=== PATIENT | male | born 1935 | race Caucasian/White ===

== ENCOUNTER 2018-12-13 10:02 | Observation (INO) | payer MEDICARE, OTHER ==
[2018-12-13 10:18] VITALS: BMI 29.7
[2018-12-13 11:09] LABS: BASO % 0.7 % (0.0-2.0); EOS # 0.1 K/uL (0.0-0.7); EOS % 2.2 % (0.0-4.0); LYMPH % 19.1 % (20.0-40.0); MEAN CORPUSCULAR HEMOGLOBIN 32.6 pg (27.0-31.0); MEAN CORPUSCULAR HGB CONC 33.7 g/dL (33.0-37.0); MEAN PLATELET VOLUME 8.6 fL (7.2-11.7); MONO # 0.4 K/uL (0.0-0.8); MONO % 6.5 % (0.0-10.0); NEUT # 3.9 K/uL (1.8-7.0); NEUT % 71.5 % (50.0-75.0); NRBC % 0.1 % (0.0-2.0); RBC 2.55 Mil/uL (4.40-5.90); RED CELL DISTRIBUTION WIDTH 14.3 % (11.5-14.5); WHITE BLOOD COUNT 5.4 K/uL (4.8-10.8)
[2018-12-13 11:12] LABS: HEMOGLOBIN 8.3 g/dL (12.0-18.0); MEAN CELL VOLUME 96.6 fL (80.0-94.0)
--- NOTE | 2018-12-13 11:20 | C.PDOC ---
History Of Present Illness 83 y/o male,w/PMhx of COPD, HTN, CAD w/stents, CABG, and "enlarged bladder" presents to the ER complaining of shortness which has been present for the past 1 week gradually worsening over the past several days. Patient states that he Time Seen by Provider: 12/13/18 10:08 Chief Complaint (Nursing): Shortness Of Breath Past Medical History Vital Signs: Last Vital Signs Temp 97.4 F L 12/13/18 10:11 Pulse 86 12/13/18 10:11 Resp 24 12/13/18 10:41 BP 113/52 L 12/13/18 10:11 Pulse Ox 99 12/13/18 10:41 - Medical History PMH: Asthma, Bronchitis, CHF, COPD, HTN, Hypothyroidism Surgical History: CABG Family History: States: No Known Family Hx - Social History Hx Alcohol Use: No Hx Substance Use: No - Immunization History Hx Tetanus Toxoid Vaccination: No Hx Influenza Vaccination: No Hx Pneumococcal Vaccination: No Review Of Systems Constitutional: Negative for: Fever, Chills Cardiovascular: Negative for: Chest Pain, Palpitations Respiratory: Positive for: Shortness of Breath Gastrointestinal: Negative for: Nausea, Vomiting, Abdominal Pain, Diarrhea Genitourinary: Negative for: Dysuria, Hematuria Skin: Negative for: Rash Physical Exam - Physical Exam Appears: Well, Non-toxic, In Acute Distress (IN MILD IDSTRES), Other (SPEAKING IN FULL SENTENCES) Skin: Warm, Dry Eye(s): bilateral: Normal Inspection Oral Mucosa: Moist Cardiovascular: Rhythm Regular Respiratory: No Accessory Muscle Use, Rales (faint rales at bases B/L ), No Rhonchi, No Wheezing Gastrointestinal/Abdominal: Normal Exam, Bowel Sounds, Soft, No Tenderness Extremity: Normal ROM, No Pedal Edema Pulses: Left Dorsalis Pedis: Normal, Right Dorsalis Pedis: Normal Neurological/Psych: Oriented x3 ED Course And Treatment - Laboratory Results Result Diagrams: 12/13/18 10:59 12/13/18 10:59 ECG: Interpreted By Me, Viewed By Me ECG Rhythm: V Paced Interpretation Of ECG: V Paced with left axis deviation, PVC's, and no acute ST changes Rate From EC (bpm) O2 Sat by Pulse Oximetry: 99 (RA) Pulse Ox Interpretation: Normal - Other Rad CXR X-Ray: Viewed By Me, Read By Radiologist Interpretation: Accession No. : [id number]. Patient Name / ID : SAMANTHA ALBERTS / [id number]. Exam Date : 12/13/2018 10:54:18 ( Approved ). Study Comment : Sex / Age : M / 83Y. Creator : Ivone Thurston MD. Dictator : Ivone Thurston MD. Clinical Cytogeneticist Scientist : Shingle Weaver : Ivone Thurston MD. Approver2 : Report Date : 12/13/2018 11:14:23. My Comment : . HISTORY: SOB. COMPARISON: None available. TECHNIQUE: Chest, one view. FINDINGS: LUNGS: Moderate to severe interstitial prominence consistent with edema and/or infection. Small bilateral pleural effusions and associated consolidations. Biapical pleural thickening. No definite pneumothorax. CARDIOVASCULAR: Dual lead left-sided pacemaker. Median sternotomy wires. Cardiomegaly. OSSEOUS STRUCTURES: Osseous demineralization. Degenerative changes. VISUALIZED UPPER ABDOMEN: Unremarkable. OTHER FINDINGS: None. IMPRESSION: Moderate to severe interstitial prominence consistent with edema and/or infection. Small bilateral pleural effusions and associated consolidations. Biapical pleural thickening. Dual lead left-sided pacemaker. Median sternotomy wires. Cardiomegaly. Progress Note: Blood work, EKG, CXR, VQ scan ordered and reviewed. Disposition - Disposition Disposition Time: 13:30 Condition: STABLE Forms: [facility] (Turkmen) - Clinical Impression Clinical Impression: Dyspnea - Scribe Statement The provider has reviewed the documentation as recorded by the Jajaibe Tracy Sellers Provider Attestation: All medical record entries made by the Scribe were at my direction and personally dictated by me. I have reviewed the chart and agree that the record accurately reflects my personal performance of the history, physical exam, medical decision making, and the department course for this patient. I have also personally directed, reviewed, and agree with the discharge instructions and disposition. Physician Patient Turnover Patient Signed Over To: Zuly Torres Handoff Comments: PENDING VQ SCAN
[2018-12-13 11:23] LABS: ALB/GLOB RATIO 1.4 (1.0-2.1); ALBUMIN 3.8 g/dL (3.5-5.0); ALT/SGPT 12 U/L (21-72); AST/SGOT 19 U/L (17-59); BLOOD UREA NITROGEN 20 mg/dL (9-20); CALCIUM 9.3 mg/dl (8.6-10.4); GFR NON-AFRICAN AMERICAN 26
[2018-12-13 11:40] LABS: B-TYPE NATRIURETIC PEPTIDE 3810 pg/mL (0-900); CK-MB 2.58 ng/mL (0.0-3.38)
--- NOTE | 2018-12-13 13:45 | NM ---
Date of service: 12/13/2018 COMPARISON: December 13, 2018. Single-view chest TECHNIQUE: 10.2 mCi technetium 99-m Xe-133 Gas. 4.1 mCI technetium 99-m MAA administered intravenously. FINDINGS: VENTILATION COMPONENT: Mildly heterogeneous ventilation. Findings consistent with chest x-ray. PERFUSION COMPONENT: Heterogeneous distribution of radionuclide. No geographic, segmental, lobar abnormalities apparent on the present examination. Findings consistent with chest radiograph. IMPRESSION: Low probability ventilation perfusion scan for pulmonary embolism.
--- NOTE | 2018-12-13 14:43 | CP.PCM.HP ---
<Lukasz Cheema - Last Filed: 12/13/18 16:03> History of Present Illness - History of Present Illness History of Present Illness: cc I'm SOB help me HPI 83M PMHx of COPD, CABG, BPH, Obstructive Uropathy presenting with SOB for one week. Pt says one week ago he had a fever after a procedure with Dr Blanca microwave thermotherapy. Pt states he tolerated procedure well and high urine output increased substantially. Sates hes been SOB and has had BELTRE since then. Pt went to see Dr Santos today his PMD and was told to come into ED. Pt tried taking his home inhalers but had no relief of symptoms. Pt has also run out of home O2, feels like he needs oxygen. Pt was recently seen by Dr More in office Cr was 3.6 10/30/18, -- 1.3 on 06/30/18 and a psa 180. Pt was previously with urinary retention and had problems initiating stream, however now improved. ROS: Pos+ SOB, BELTRE, recent procedure, no home O2, recent weight loss of about 10lbs Neg- CP, FC, NV, blood in sputum/urine/stool, syncope, dizziness, oliguria/dysuria, med noncompliance, sick contacts, cyanosis, clubbing, vision change PMHx:COPD, CABG, BPH, Obstructive Uropathy, Aortic Stenosi PSx: CABG, Microwave Thermotherapy SocHx: 3ppd smoker for 60yrs, denies etoh or drugs FH: Denies Home Rx: zolpidem meclizine 12.5 tramadol 50 colace 100 gabapentin 100 daily omeprazole 40 spiriva Combivent Symbicort alfuzosin 10 synthroid 25 ASA 81 Plavix 75 lisinopril 10 crestor 40 amlodipide 5 pyridium Flomax Atenolol 25 Lasix 20 daily Vit d 100 Present on Admission - Present on Admission Any Indicators Present on Admission: No Review of Systems - Review of Systems All systems: reviewed and no additional remarkable complaints except (as per HPI) Past Patient History - Past Social History Smoking Status: Former Smoker - CARDIAC Hx Congestive Heart Failure: Yes Hx Hypertension: Yes - PULMONARY Hx Asthma: Yes Hx Bronchitis: Yes Hx Chronic Obstructive Pulmonary Disease (COPD): Yes - ENDOCRINE/METABOLIC Hx Hypothyroidism: Yes - PSYCHIATRIC Hx Substance Use: No - SURGICAL HISTORY Hx Coronary Artery Bypass Graft: Yes - ANESTHESIA Hx Anesthesia: Yes Hx Anesthesia Reactions: No Hx Malignant Hyperthermia: No Meds Allergies/Adverse Reactions: Allergies Allergy/AdvReac Type Severity Reaction Status Date / Time No Known Allergies Allergy Verified 12/13/18 10:11 Physical Exam - Constitutional Appears: Non-toxic, No Acute Distress - Head Exam Head Exam: ATRAUMATIC, NORMAL INSPECTION - Eye Exam Eye Exam: EOMI, Normal appearance. absent: Periorbital swelling, Scleral icterus Pupil Exam: PERRL - ENT Exam ENT Exam: Mucous Membranes Moist - Neck Exam Neck exam: Negative for: Lymphadenopathy - Respiratory Exam Respiratory Exam: Accessory Muscle Use, Wheezes - Cardiovascular Exam Cardiovascular Exam: RRR, +S1, +S2, Systolic Murmur (aortic) - GI/Abdominal Exam GI & Abdominal Exam: Soft. absent: Rebound, Rigid, Tenderness - Extremities Exam Extremities exam: Positive for: pedal pulses present. Negative for: pedal edema - Back Exam Back exam: NORMAL INSPECTION - Neurological Exam Neurological exam: Alert, CN II-XII Intact, Oriented x3, Reflexes Normal - Psychiatric Exam Psychiatric exam: Normal Affect, Normal Mood - Skin Skin Exam: Dry, Normal Color, Warm Results - Vital Signs Recent Vital Signs: Last Vital Signs Temp 97.4 F L 12/13/18 10:11 Pulse 99 H 12/13/18 14:13 Resp 20 12/13/18 14:13 BP 136/72 12/13/18 14:13 Pulse Ox 98 12/13/18 14:13 - Labs Result Diagrams: 12/13/18 10:59 12/13/18 10:59 Labs: Laboratory Results - last 24 hr 12/13/18 12/13/18 12/13/18 10:59 10:59 10:59 WBC 5.4 RBC 2.55 L Hgb 8.3 L D Hct 24.6 L MCV 96.6 H D MCH 32.6 H MCHC 33.7 RDW 14.3 Plt Count 209 MPV 8.6 Neut % (Auto) 71.5 Lymph % (Auto) 19.1 L [place] % (Auto) 6.5 Eos % (Auto) 2.2 Baso % (Auto) 0.7 Neut # (Auto) 3.9 Lymph # (Auto) 1.0 [place] # (Auto) 0.4 Eos # (Auto) 0.1 Baso # (Auto) 0.0 D-Dimer, Quantitative 590 H Sodium 142 Potassium 3.4 L Chloride 110 H Carbon Dioxide 22 Anion Gap 13 BUN 20 Creatinine 2.4 H Est GFR ( Amer) 32 Est GFR (Non-Af Amer) 26 Random Glucose 105 Calcium 9.3 Total Bilirubin 0.3 AST 19 ALT 12 L D Alkaline Phosphatase 54 Total Creatine Kinase 240 H CK-MB (Mass) 2.58 Troponin I < 0.0120 NT-Pro-B Natriuret Pep 3810 H Total Protein 6.4 Albumin 3.8 Globulin 2.6 Albumin/Globulin Ratio 1.4 Assessment & Plan - Assessment and Plan (Free Text) Assessment: 83M admitted for [employer] exacerbation, possible CHF exacerbation and Renal failure or uncertain etiology Plan: SOB CHF(diastolic vs Systolic) -Atenolol 25 daily -norvasc 5 daily -Dr Howard Cardio consulted -Lasix 20 IV daily -f/u echo Renal Failure- Acute vs Chronic w/ Hx Obstructive Uropathy -Evangelist More Urology consulted: f/u recs -Dr Bonds Nephro consulted: f/u recs -f/u psa -f/u Renal U/S -Last Cr on 10/[address] More Office was 3.7 -Cr today 2.4 COPD Exacerbation -Duonebs q4 -Spiriva daily -Symbicort -Solumedrol 40 ivp daily -Lasix 40 ivp daily HTN -Atenolol 25 daily -norvasc 5 daily -monitor CAD w/ CABG ASA 81 Plavix 75 Crestor 10 ASA 81 Plavix 75 BPH- Obstructive Uropathy Flomax daily monitor I&Os As per Dr More, do not insert gardner without his knowledge s/p Microwave thermotherapy PPx PTX 40 daily Hep 5000u sc Daily CK PGY1 d/w Dr Wilkerson <Surendra Wilkerson - Last Filed: 12/14/18 10:49> Results - Vital Signs Recent Vital Signs: Last Vital Signs Temp 97.4 F L 12/14/18 08:00 Pulse 87 12/14/18 08:00 Resp 20 12/14/18 08:00 BP 129/75 12/14/18 08:00 Pulse Ox 97 12/14/18 08:00 - Labs Result Diagrams: 12/14/18 08:34 12/14/18 08:34 Labs: Laboratory Results - last 24 hr 12/13/18 12/13/18 12/13/18 10:59 10:59 10:59 WBC 5.4 RBC 2.55 L Hgb 8.3 L D Hct 24.6 L MCV 96.6 H D MCH 32.6 H MCHC 33.7 RDW 14.3 Plt Count 209 MPV 8.6 Neut % (Auto) 71.5 Lymph % (Auto) 19.1 L [place] % (Auto) 6.5 Eos % (Auto) 2.2 Baso % (Auto) 0.7 Neut # (Auto) 3.9 Lymph # (Auto) 1.0 [place] # (Auto) 0.4 Eos # (Auto) 0.1 Baso # (Auto) 0.0 D-Dimer, Quantitative 590 H Sodium 142 Potassium 3.4 L Chloride 110 H Carbon Dioxide 22 Anion Gap 13 BUN 20 Creatinine 2.4 H Est GFR ( Amer) 32 Est GFR (Non-Af Amer) 26 Random Glucose 105 Calcium 9.3 Phosphorus Magnesium Iron TIBC % Saturation Ferritin Total Bilirubin 0.3 AST 19 ALT 12 L D Alkaline Phosphatase 54 Total Creatine Kinase 240 H CK-MB (Mass) 2.58 Troponin I < 0.0120 NT-Pro-B Natriuret Pep 3810 H Total Protein 6.4 Albumin 3.8 Globulin 2.6 Albumin/Globulin Ratio 1.4 25-OH Vitamin D Total Urine Color Urine Clarity Urine pH Ur Specific [place] Urine Protein Urine Glucose (UA) Urine Ketones Urine Blood Urine Nitrate Urine Bilirubin Urine Urobilinogen Ur Leukocyte Esterase Urine WBC (Auto) Urine RBC (Auto) Hyaline Casts 12/13/18 12/14/18 12/14/18 21:37 08:34 08:34 WBC 5.2 RBC 2.47 L Hgb 8.1 L Hct 23.7 L MCV 96.2 H MCH 33.0 H MCHC 34.3 RDW 14.2 Plt Count 180 MPV 9.9 Neut % (Auto) 69.0 Lymph % (Auto) 21.5 [place] % (Auto) 8.0 Eos % (Auto) 0.8 Baso % (Auto) 0.7 Neut # (Auto) 3.6 Lymph # (Auto) 1.1 [place] # (Auto) 0.4 Eos # (Auto) 0.0 Baso # (Auto) 0.0 D-Dimer, Quantitative Sodium 139 Potassium 3.6 Chloride 112 H Carbon Dioxide 22 Anion Gap 9 L BUN 23 H Creatinine 2.4 H Est GFR ( Amer) 32 Est GFR (Non-Af Amer) 26 Random Glucose 94 Calcium 9.0 Phosphorus 4.9 H Magnesium 1.8 Iron TIBC % Saturation Ferritin 244.0 Total Bilirubin 0.3 AST 19 ALT 21 D Alkaline Phosphatase 55 Total Creatine Kinase CK-MB (Mass) Troponin I NT-Pro-B Natriuret Pep Total Protein 5.9 L Albumin 3.5 Globulin 2.4 Albumin/Globulin Ratio 1.5 25-OH Vitamin D Total Urine Color Yellow Urine Clarity Clear Urine pH 5.0 Ur Specific [place] 1.009 Urine Protein Negative Urine Glucose (UA) Normal Urine Ketones Negative Urine Blood Negative Urine Nitrate Negative Urine Bilirubin Negative Urine Urobilinogen Normal Ur Leukocyte Esterase 2+ H Urine WBC (Auto) 13 H Urine RBC (Auto) 1 Hyaline Casts 0-2 12/14/18 12/14/18 08:34 08:34 WBC RBC Hgb Hct MCV MCH MCHC RDW Plt Count MPV Neut % (Auto) Lymph % (Auto) [place] % (Auto) Eos % (Auto) Baso % (Auto) Neut # (Auto) Lymph # (Auto) [place] # (Auto) Eos # (Auto) Baso # (Auto) D-Dimer, Quantitative Sodium Potassium Chloride Carbon Dioxide Anion Gap BUN Creatinine Est GFR ( Amer) Est GFR (Non-Af Amer) Random Glucose Calcium Phosphorus Magnesium Iron 46 L TIBC 223 L % Saturation 21 Ferritin Total Bilirubin AST ALT Alkaline Phosphatase Total Creatine Kinase CK-MB (Mass) Troponin I NT-Pro-B Natriuret Pep Total Protein Albumin Globulin Albumin/Globulin Ratio 25-OH Vitamin D Total 52.3 Urine Color Urine Clarity Urine pH Ur Specific [place] Urine Protein Urine Glucose (UA) Urine Ketones Urine Blood Urine Nitrate Urine Bilirubin Urine Urobilinogen Ur Leukocyte Esterase Urine WBC (Auto) Urine RBC (Auto) Hyaline Casts Attending/Attestation - Attestation I have personally seen and examined this patient.: Yes I have fully participated in the care of the patient.: Yes I have reviewed all pertinent clinical information: Yes Notes (Text): seen and examined by me in the ER.Spoke to his and daughter at bedside. patient was asked to come to ER for SOB. Asper daughter he lives in a senior home. He states that he is a smoker for about 60years and uses inhalers at home. Not on home oxygen. He has a pace maker,denies cardiac stent.denies chest pain,shortness of breath on exertion. No fever,has BPH and follows DR More for his prostate,passing urine ok.no abdominal pain on examination he has lower lobe rales,x ray with congestion,EGK with paced R 1.SOB,combination of copd exacerbation and decompensated CHF 2.Renal failure.Obstructive uropathy 3.HTN,CAD,S/p pace maker 5AS Management discussed with the resident.
[2018-12-13] MEDS: Albuterol-Ipratrop 3 mg / 0.5 (3 ml) UD INH SCH ×2 (17:00→20:33)
[2018-12-13] MEDS: MethylPREDNISolone 40 mg Vial IVP SCH (17:31)
--- NOTE | 2018-12-13 18:21 | US ---
Date of service: 12/13/2018 PROCEDURE: Ultrasound of the Kidneys HISTORY: obstructive uropathy COMPARISON: None available. TECHNIQUE: Sonogram of the kidneys. FINDINGS: RIGHT KIDNEY: Measures: 11.4 x 4.9 x 4.1 cm. Moderate to severe hydronephrosis. No obstructing calculus identified. LEFT KIDNEY: Measures: 12.1 x 5.8 x 5.7 cm. Moderate to severe hydronephrosis. No obstructing calculus identified. OTHER FINDINGS: Distention of the urinary bladder with trabeculations. Postvoid residual 258 cc. IMPRESSION: Moderate to severe bilateral hydronephrosis. No obstructing calculus identified. Distended urinary bladder with trabeculations. Postvoid residual 258 cc
[2018-12-13] MEDS ORDERED: POLYETHYLENE GLYCOL 3350 17 GM/Dose PACKET PO ONE (20:28)
[2018-12-13 21:50] LABS: URINE BILIRUBIN NEGATIVE (NEGATIVE); URINE BLOOD NEGATIVE (NEGATIVE); URINE CLARITY Clear (Clear); URINE COLOR Yellow (YELLOW); URINE GLUCOSE (UA) NORMAL (Normal); URINE HYALINE CAST 0-2 /lpf (0-2); URINE LEUKOCYTE ESTERASE 2+ Leu/uL (Negative); URINE PROTEIN NEGATIVE (NEGATIVE); URINE UROBILINOGEN NORMAL mg/dL (0.2-1.0)
[2018-12-14] MEDS: Albuterol-Ipratrop 3 mg / 0.5 (3 ml) UD INH SCH ×6 (01:26→19:29)
--- NOTE | 2018-12-14 03:57 | CON ---
DATE: 12/13/2018 NEPHROLOGY CONSULTATION LOCATION: [facility]. HISTORY OF PRESENT ILLNESS: The patient is an 83-year-old male with past medical history of COPD, CAD, status post CABG, critical aortic stenosis, BPH with obstructive uropathy, presented with shortness of breath this past one week. Nephrology being consulted for acute renal failure. The patient's history taken from the patient and family who are at bedside. The patient reports increasing shortness of breath over past one week. Denies any increased leg swelling. Denies any difficulty urinating or decreased urination. Per family, the patient has had decreased p.o. intake for the past several weeks and has lost approximately 20 pounds during this period. The patient denies any night sweats, fevers, or chills. He just reports some associated cough with some sputum production. The patient reportedly had Walker in place for about four months last year. He subsequently underwent microwave thermotherapy for his enlarged prostate and reports that urination had improved subsequently. Serum creatinine one and half months ago was reportedly 3.6 but was 1.3 in June 2018. PAST MEDICAL HISTORY: As above. Urologist had wanted to do TURP procedure; however, the patient did not get Cardiology clearance due to critical aortic stenosis and was instead referred for TAVR procedure which he never followed up with. SOCIAL HISTORY: Previous smoker. FAMILY HISTORY: Denies. REVIEW OF SYSTEMS: CONSTITUTIONAL: As per HPI. HEENT: Denies any difficulty swallowing. RESPIRATORY: History of emphysema. Does not use home O2. CARDIOVASCULAR: Denies any chest pain or palpitations. GASTROINTESTINAL: No nausea, vomiting. The patient reports being constipated. GENITOURINARY: As per HPI. MUSCULOSKELETAL: Gets some pain in his hands. Takes pain medication but does not know which one. No other back pain or knee pain. NEUROLOGIC: Denies any headache or dizziness lately. Does take meclizine sometimes for dizziness. PHYSICAL EXAMINATION: VITAL SIGNS: This evening, blood pressure 136/63, heart rate 85, respirations 20, temperature 97.4, O2 sat 96% on O2 via nasal cannula. GENERAL: No distress, conversing coherently in full sentences. HEENT: Moist mucous membranes. Nonicteric. Elevated JVD. RESPIRATORY: Right basal rales present. Otherwise with some expiratory wheezes. CARDIOVASCULAR: Heart sounds S1 and S2 normal. No murmurs. No gallops. No rubs. GASTROINTESTINAL: Abdomen soft, nontender, mildly distended. GENITOURINARY: Some bladder distention appreciated. EXTREMITIES: Mild lower leg edema. SKIN: Warm. No cyanosis. PSYCHIATRIC: Normal mood. Normal affect. NEUROLOGIC: No resting tremor. LABORATORY DATA: CBC: WBC 5.4, hemoglobin 8.3, hematocrit 24.6, platelets 209. Chemistry panel: Sodium 142, potassium 3.4, chloride 110, bicarb 22, BUN 20, creatinine 2.4, calcium 9.3, glucose 105, AST 19, ALT 12, albumin 3.8. Chest x-ray showing bilateral basal opacities, increased interstitial markings. Renal bladder ultrasound directly visualized showing [id number] hydronephrosis with large distended bladder volume. ASSESSMENT AND PLAN: 1. Acute renal failure consistent with obstructive uropathy in the setting of known benign prostatic hyperplasia. Renal function reportedly improved after microwave therapy; however, the patient still with partial obstruction and bilateral hydronephrosis. Discussed with urologist who agrees that Walker should be placed. No emergent need at this time as electrolyte status is stable and the patient with acceptable oxygen saturation on nasal cannula oxygen. Placement by nursing staff will likely be somewhat difficult given large prostate size. We will await Walker placement. Avoid nephrotoxic agents. We will hold angiotensin-converting enzyme inhibitor/angiotensin receptor blockers for now. 2. Critical aortic stenosis. The patient in need of transcatheter aortic valve replacement procedure per his primary patient access director. Discussed with the patient that no definitive prostate procedure will be undertaken until valve issue has resolved. Agree with repeat echo and Cardiology referral. 3. Hypertensive chronic kidney disease. The patient with blood pressure currently well controlled on Norvasc 5 mg daily, atenolol 25 mg daily. Agree with diuretics as the patient has signs of volume overload. We will give 40 mg every 12 hours of intravenous Lasix. 4. Anemia. Need to check iron studies or we will replenish iron accordingly and give Epogen before discharge. Thank you for this referral. We will be following up closely. Pal Bonds MD
[2018-12-14] MEDS: Levothyroxine 25 MCG TAB PO SCH (06:54)
--- NOTE | 2018-12-14 07:35 | CP.PCM.PN ---
<Dong Bryan - Last Filed: 12/14/18 18:40> Subjective - Date & Time of Evaluation Date of Evaluation: 12/14/18 Time of Evaluation: 08:00 - Subjective Subjective: PGY-[address] Wilkerson service Patient is seen and examined sitting in chair, family members in room today during encounter. Patient was not able to sleep well last night, state takes zolpidem at home for sleep. reports shortness of breath to have improved since admission, patient gets short of breath when moving. Patient admits to improvement of urine flow, denies burning or pain when urination. Patient went for echo recently. Tolerating food. Denies fever, chills, chest pain, n/v/d/c or leg pain or swelling. Objective - Vital Signs/Intake and Output Vital Signs (last 24 hours): Temp Pulse Resp BP Pulse Ox 97.8 F 78 20 117/71 94 L 12/13/18 23:42 12/14/18 00:10 12/13/18 23:42 12/13/18 23:42 12/13/18 23:42 Intake and Output: 12/14/18 12/14/18 06:59 18:59 Intake Total 200 Output Total 150 Balance 50 - Medications Medications: Current Medications Albuterol/Ipratropium (Duoneb 3 Mg/0.5 Mg (3 Ml) Ud) 3 ml INH RQ4 [facility] Last Admin: 12/14/18 01:26 Dose: Not Given Amlodipine Besylate (Norvasc) 5 mg PO DAILY [facility] Aspirin (Ecotrin) 81 mg PO DAILY [facility] Atenolol (Tenormin) 25 mg PO DAILY [facility] Clopidogrel Bisulfate (Plavix) 75 mg PO DAILY [facility] Docusate Sodium (Colace) 100 mg PO DAILY [facility] Fluticasone/Vilanterol (Breo Ellipta 100-25 Mcg Inh) 1 puff INH RQ24 [facility] Furosemide (Lasix) 20 mg IVP DAILY [facility] Gabapentin (Neurontin) 100 mg PO DAILY [facility] Heparin Sodium (Porcine) (Heparin) 5,000 units SC Q8 [facility] Last Admin: 12/14/18 06:54 Dose: 5,000 units Levothyroxine Sodium (Synthroid) 25 mcg PO DAILY@0630 [facility] Last Admin: 12/14/18 06:54 Dose: 25 mcg Methylprednisolone (Solu-Medrol) 40 mg IVP DAILY [facility] Last Admin: 12/13/18 17:31 Dose: 40 mg Pantoprazole Sodium (Protonix Inj) 40 mg IVP DAILY [facility] Phenazopyridine HCl (Pyridium) 200 mg PO TID [facility] Last Admin: 12/13/18 18:16 Dose: 200 mg Rosuvastatin Calcium (Crestor) 10 mg PO HS [facility] Last Admin: 12/13/18 21:35 Dose: 10 mg Tamsulosin HCl (Flomax) 0.4 mg PO BID [facility] Tiotropium [place] (Spiriva) 18 mcg IH RQD [facility] Tiotropium [place] (Spiriva Inhalation Handihaler Device) 1 inhaler INH ONCE ONE Stop: 12/14/18 08:01 - Labs Labs: 12/13/18 10:59 12/13/18 10:59 - Constitutional Appears: Non-toxic, No Acute Distress - Head Exam Head Exam: ATRAUMATIC, NORMOCEPHALIC - Eye Exam Eye Exam: EOMI - Neck Exam Neck Exam: Full ROM - Respiratory Exam Respiratory Exam: NORMAL BREATHING PATTERN. absent: Decreased Breath Sounds, Rhonchi, Wheezes - Cardiovascular Exam Cardiovascular Exam: REGULAR RHYTHM, +S1, +S2 - GI/Abdominal Exam GI & Abdominal Exam: Soft, Normal Bowel Sounds - Extremities Exam Extremities Exam: Full ROM. absent: Pedal Edema - Back Exam Back Exam: NORMAL INSPECTION - Neurological Exam Neurological Exam: Alert, Awake, Oriented x3 - Psychiatric Exam Psychiatric exam: Normal Affect, Normal Mood - Skin Skin Exam: Dry, Intact, Normal Color, Warm Assessment and Plan - Assessment and Plan (Free Text) Assessment: 83yo male with pmhx of BPH, COPD, HTN, CAD s/p CABG, Aortic stenosis, admitted for SOB possible COPD vs CHF exacerbation and Renal failure possible 2/2 obstructive uropathy Plan: SOB CHF(diastolic vs Systolic) - V/Q scan - negative for PE, CTA c/i due to RF -Atenolol 25 daily -norvasc 5 daily -Lasix 20 IV daily -echo done 12/14 - pending results -Cardio consult - Dr Howard Renal Failure- Acute vs Chronic w/ Hx Obstructive Uropathy - Patient refused gardner cath and suprapubic gardner -f/u Renal U/S - moderate to severe bilateral nephrosis, no obstucting calculus identified, distended urinary bladder with trabeculations. Postvoid residual 258cc -Cr today 2.4 unchaged from yesterday's 2.4 - Renal Scan w/Lasix and Urinary bladder U/S with normal intake ordered - f/u results -[facility] More Urology consulted: f/u recs -Dr Bonds Nephro consulted: f/u recs - f/u Urine Cx COPD Exacerbation -Duonebs q4 -Spiriva daily -Symbicort -Solumedrol 20 ivp daily -Lasix 20 ivp daily HTN -Atenolol 25 daily -norvasc 5 daily -normotensive -continue to monitor CAD w/ CABG ASA 81 Plavix 75 Crestor 10 Aortic Stenosis ASA 81 Plavix 75 BPH- Obstructive Uropathy s/p Microwave thermotherapy Flomax BID monitor I&Os Urology - Dr Porsha More PPx PTX 40 daily Hep 5000u sc Daily, SCDS c/i for CHF Zolpidem 10mg HS for insomnia HHD dispo: patient refused gardner cath or suprapubic cath, patient to get renal scan and bladder u/s, will continue to follow Uro and nephro recs. Plan discussed with Surendra Bloom - Last Filed: 12/15/18 14:14> Objective - Vital Signs/Intake and Output Vital Signs (last 24 hours): Temp Pulse Resp BP Pulse Ox 97.4 F L 71 20 110/61 100 12/15/18 08:28 12/15/18 08:28 12/15/18 08:28 12/15/18 08:28 12/15/18 08:28 - Medications Medications: Current Medications Albuterol/Ipratropium (Duoneb 3 Mg/0.5 Mg (3 Ml) Ud) 3 ml INH RQ4 [facility] Last Admin: 12/15/18 13:20 Dose: 3 ml Aspirin (Ecotrin) 81 mg PO DAILY [facility] Last Admin: 12/15/18 12:04 Dose: 81 mg Atenolol (Tenormin) 25 mg PO DAILY [facility] Last Admin: 12/15/18 11:54 Dose: 25 mg Clopidogrel Bisulfate (Plavix) 75 mg PO DAILY [facility] Last Admin: 12/15/18 11:53 Dose: 75 mg Docusate Sodium (Colace) 100 mg PO DAILY [facility] Last Admin: 12/15/18 11:53 Dose: 100 mg Ferric Sodium Gluconate Complex (Ferrlecit) 125 mg IVPB DAILY [facility] Stop: 12/22/18 14:01 Last Admin: 12/15/18 12:04 Dose: 125 mg Finasteride (Proscar) 5 mg PO DAILY [facility] Fluticasone/Vilanterol (Breo Ellipta 100-25 Mcg Inh) 1 puff INH RQ24 [facility] Last Admin: 12/15/18 13:13 Dose: Not Given Furosemide (Lasix) 20 mg IVP DAILY [facility] Last Admin: 12/15/18 11:55 Dose: Not Given Gabapentin (Neurontin) 100 mg PO DAILY [facility] Last Admin: 12/15/18 11:53 Dose: 100 mg Heparin Sodium (Porcine) (Heparin) 5,000 units SC Q8 [facility] Last Admin: 12/15/18 05:35 Dose: 5,000 units Levothyroxine Sodium (Synthroid) 25 mcg PO DAILY@0630 [facility] Last Admin: 12/15/18 05:36 Dose: 25 mcg Methylprednisolone (Solu-Medrol) 20 mg IVP DAILY [facility] Last Admin: 12/15/18 11:52 Dose: 20 mg Pantoprazole Sodium (Protonix Inj) 40 mg IVP DAILY [facility] Last Admin: 12/15/18 11:52 Dose: 40 mg Phenazopyridine HCl (Pyridium) 200 mg PO TID PRN PRN Reason: dysuria Stop: 12/17/18 12:39 Rosuvastatin Calcium (Crestor) 10 mg PO HS [facility] Last Admin: 12/14/18 21:15 Dose: 10 mg Tamsulosin HCl (Flomax) 0.4 mg PO BID [facility] Last Admin: 12/15/18 11:55 Dose: Not Given Tiotropium [place] (Spiriva) 18 mcg IH RQD [facility] Last Admin: 12/15/18 07:54 Dose: 18 mcg Zolpidem Tartrate (Ambien) 5 mg PO HS [facility] Last Admin: 12/14/18 21:15 Dose: 5 mg - Labs Labs: 12/15/18 06:30 12/15/18 06:30 APTT 34 SECONDS (21-34) 12/14/18 11:44 Attending/Attestation - Attestation I have personally seen and examined this patient.: Yes I have fully participated in the care of the patient.: Yes I have reviewed all pertinent clinical information, including history, physical exam and plan: Yes Notes (Text): Seen and examined with the resident. Patient is feeling better. His congestion is better. He is refusing faley cath Lungs with basal rales,mild sob. 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 Patient refused faley cath insertion as per Dr more. he doesn't want suprapubic cath .Recommending to do a lasix renal scan and bladder scan pre and post void. Plan discussed with Patient's family spoke to Dr Bonds
--- NOTE | 2018-12-14 08:40 | CP.PCM.CON ---
History of Present Illness - History of Present Illness History of Present Illness: Consultation for evaluation of CHF exacerbation / hx of AVR in 2009 HPI: Domingo is a pleasant 83-year-old male with past medical history significant for aortic valve replacement back [place] [address] Jose Luis Mayorga who was seen by Dr. Fox in the office for symptoms of worsening shortness of breath and was sent over to the emergency room for further evaluation and treatment and patient his BNP was 3200 clinically he does have history of aortic stenosis and there was some concern about the severity of it for which she was evaluated by the structural heart team at [facility] back in 2017 apparently the echocardiogram from the [facility] system shows the valve area of 0.65 with mean gradients >40. He developed severe prosthetic problems with his prostate issues and that was apparently the valve was delayed he was also somewhat reluctant for proceeding with general anesthesia with concerns for a degenerating after that. Since then he according to the son he has been fairly active goes to the daycare facilities where he is fairly active but over the course of last week developed some severe shortness of breath he is still been living with the indwelling Walker catheter and to be followed by urology for evaluation of his prostate issues. Also hx of PPM in 2017 Review of Systems - Review of Systems Systems not reviewed;Unavailable: Acuity of Condition - Constitutional Constitutional: As Per HPI - EENT Eyes: As Per HPI Ears: As Per HPI Nose/Mouth/Throat: As Per HPI - Cardiovascular Cardiovascular: As Per HPI - Respiratory Respiratory: As Per HPI - Gastrointestinal Gastrointestinal: As Per HPI - Genitourinary Genitourinary: As Per HPI - Reproductive: Male Reproductive:Male: As Per HPI - Musculoskeletal Musculoskeletal: As Per HPI - Integumentary Integumentary: As Per HPI - Neurological Neurological: As Per HPI - Psychiatric Psychiatric: As Per HPI - Endocrine Endocrine: As Per HPI - Hematologic/Lymphatic Hematologic: As Per HPI Past Patient History - Past Social History Smoking Status: Former Smoker - CARDIAC Hx Congestive Heart Failure: Yes Hx Hypertension: Yes - PULMONARY Hx Asthma: Yes Hx Bronchitis: Yes Hx Chronic Obstructive Pulmonary Disease (COPD): Yes - ENDOCRINE/METABOLIC Hx Hypothyroidism: Yes - PSYCHIATRIC Hx Substance Use: No - SURGICAL HISTORY Hx Coronary Artery Bypass Graft: Yes - ANESTHESIA Hx Anesthesia: Yes Hx Anesthesia Reactions: No Hx Malignant Hyperthermia: No Meds Allergies/Adverse Reactions: Allergies Allergy/AdvReac Type Severity Reaction Status Date / Time No Known Allergies Allergy Verified 12/13/18 10:11 - Medications Medications: Current Medications Albuterol/Ipratropium (Duoneb 3 Mg/0.5 Mg (3 Ml) Ud) 3 ml INH RQ4 [facility] Last Admin: 12/14/18 07:59 Dose: 3 ml Amlodipine Besylate (Norvasc) 5 mg PO DAILY [facility] Aspirin (Ecotrin) 81 mg PO DAILY [facility] Atenolol (Tenormin) 25 mg PO DAILY [facility] Clopidogrel Bisulfate (Plavix) 75 mg PO DAILY [facility] Docusate Sodium (Colace) 100 mg PO DAILY [facility] Fluticasone/Vilanterol (Breo Ellipta 100-25 Mcg Inh) 1 puff INH RQ24 [facility] Furosemide (Lasix) 20 mg IVP DAILY [facility] Gabapentin (Neurontin) 100 mg PO DAILY [facility] Heparin Sodium (Porcine) (Heparin) 5,000 units SC Q8 [facility] Last Admin: 12/14/18 06:54 Dose: 5,000 units Levothyroxine Sodium (Synthroid) 25 mcg PO DAILY@0630 [facility] Last Admin: 12/14/18 06:54 Dose: 25 mcg Methylprednisolone (Solu-Medrol) 40 mg IVP DAILY [facility] Last Admin: 12/13/18 17:31 Dose: 40 mg Pantoprazole Sodium (Protonix Inj) 40 mg IVP DAILY [facility] Phenazopyridine HCl (Pyridium) 200 mg PO TID [facility] Last Admin: 12/13/18 18:16 Dose: 200 mg Rosuvastatin Calcium (Crestor) 10 mg PO HS [facility] Last Admin: 12/13/18 21:35 Dose: 10 mg Tamsulosin HCl (Flomax) 0.4 mg PO BID [facility] Tiotropium [place] (Spiriva) 18 mcg IH RQD [facility] Physical Exam - Constitutional Appears: Well - Head Exam Head Exam: ATRAUMATIC, NORMAL INSPECTION, NORMOCEPHALIC - Eye Exam Eye Exam: EOMI, Normal appearance, PERRL Pupil Exam: NORMAL ACCOMODATION, PERRL - ENT Exam ENT Exam: Mucous Membranes Moist, Normal Exam - Neck Exam Neck exam: Positive for: Normal Inspection - Respiratory Exam Respiratory Exam: Clear to Auscultation Bilateral, NORMAL BREATHING PATTERN - Cardiovascular Exam Cardiovascular Exam: REGULAR RHYTHM, RRR, +S1, +S2, Systolic Murmur - GI/Abdominal Exam GI & Abdominal Exam: Normal Bowel Sounds, Soft. absent: Tenderness - Extremities Exam Extremities exam: Positive for: normal inspection - Back Exam Back exam: NORMAL INSPECTION - Neurological Exam Neurological exam: Alert, CN II-XII Intact, Normal Gait, Oriented x3, Reflexes Normal - Psychiatric Exam Psychiatric exam: Normal Affect, Normal Mood - Skin Skin Exam: Dry, Intact, Normal Color, Warm Results - Vital Signs Recent Vital Signs: Last Vital Signs Temp 97.8 F 12/13/18 23:42 Pulse 78 12/14/18 00:10 Resp 20 12/13/18 23:42 BP 117/71 12/13/18 23:42 Pulse Ox 94 L 12/13/18 23:42 - Labs Result Diagrams: 12/14/18 08:34 12/14/18 08:34 Labs: Laboratory Results - last 24 hr 12/13/18 12/13/18 12/13/18 10:59 10:59 10:59 WBC 5.4 RBC 2.55 L Hgb 8.3 L D Hct 24.6 L MCV 96.6 H D MCH 32.6 H MCHC 33.7 RDW 14.3 Plt Count 209 MPV 8.6 Neut % (Auto) 71.5 Lymph % (Auto) 19.1 L [place] % (Auto) 6.5 Eos % (Auto) 2.2 Baso % (Auto) 0.7 Neut # (Auto) 3.9 Lymph # (Auto) 1.0 [place] # (Auto) 0.4 Eos # (Auto) 0.1 Baso # (Auto) 0.0 D-Dimer, Quantitative 590 H Sodium 142 Potassium 3.4 L Chloride 110 H Carbon Dioxide 22 Anion Gap 13 BUN 20 Creatinine 2.4 H Est GFR ( Amer) 32 Est GFR (Non-Af Amer) 26 Random Glucose 105 Calcium 9.3 Total Bilirubin 0.3 AST 19 ALT 12 L D Alkaline Phosphatase 54 Total Creatine Kinase 240 H CK-MB (Mass) 2.58 Troponin I < 0.0120 NT-Pro-B Natriuret Pep 3810 H Total Protein 6.4 Albumin 3.8 Globulin 2.6 Albumin/Globulin Ratio 1.4 Urine Color Urine Clarity Urine pH Ur Specific [place] Urine Protein Urine Glucose (UA) Urine Ketones Urine Blood Urine Nitrate Urine Bilirubin Urine Urobilinogen Ur Leukocyte Esterase Urine WBC (Auto) Urine RBC (Auto) Hyaline Casts 12/13/18 21:37 WBC RBC Hgb Hct MCV MCH MCHC RDW Plt Count MPV Neut % (Auto) Lymph % (Auto) [place] % (Auto) Eos % (Auto) Baso % (Auto) Neut # (Auto) Lymph # (Auto) [place] # (Auto) Eos # (Auto) Baso # (Auto) D-Dimer, Quantitative Sodium Potassium Chloride Carbon Dioxide Anion Gap BUN Creatinine Est GFR ( Amer) Est GFR (Non-Af Amer) Random Glucose Calcium Total Bilirubin AST ALT Alkaline Phosphatase Total Creatine Kinase CK-MB (Mass) Troponin I NT-Pro-B Natriuret Pep Total Protein Albumin Globulin Albumin/Globulin Ratio Urine Color Yellow Urine Clarity Clear Urine pH 5.0 Ur Specific [place] 1.009 Urine Protein Negative Urine Glucose (UA) Normal Urine Ketones Negative Urine Blood Negative Urine Nitrate Negative Urine Bilirubin Negative Urine Urobilinogen Normal Ur Leukocyte Esterase 2+ H Urine WBC (Auto) 13 H Urine RBC (Auto) 1 Hyaline Casts 0-2 Assessment & Plan (1) CHF exacerbation Assessment and Plan: 2' to IV lasix acei on hold 2' to renal insufficiency echo shows moderate of bioprosthetic AVR Status: Acute (2) Dyspnea Assessment and Plan: 2' to CHF IV lasix Status: Acute (3) Renal insufficiency Status: Acute
[2018-12-14 08:42] LABS: BASO % 0.7 % (0.0-2.0); EOS % 0.8 % (0.0-4.0); HEMOGLOBIN 8.1 g/dL (12.0-18.0); LYMPH # 1.1 K/uL (1.0-4.3); LYMPH % 21.5 % (20.0-40.0); MEAN CELL VOLUME 96.2 fL (80.0-94.0); MEAN CORPUSCULAR HGB CONC 34.3 g/dL (33.0-37.0); MEAN PLATELET VOLUME 9.9 fL (7.2-11.7); MONO # 0.4 K/uL (0.0-0.8); NEUT # 3.6 K/uL (1.8-7.0); NRBC % 0.1 % (0.0-2.0); RBC 2.47 Mil/uL (4.40-5.90); RED CELL DISTRIBUTION WIDTH 14.2 % (11.5-14.5); WHITE BLOOD COUNT 5.2 K/uL (4.8-10.8)
[2018-12-14 08:54] LABS: IRON 46 ug/dL (49-181)
[2018-12-14 08:58] LABS: ALB/GLOB RATIO 1.5 (1.0-2.1); ALBUMIN 3.5 g/dL (3.5-5.0)
[2018-12-14 09:04] LABS: % IRON SATURATION 21 (20-55); TOTAL IRON BINDING CAPACITY 223 ug/dL (250-450)
[2018-12-14] MEDS ORDERED: DUTASTERIDE 0.5 MG PO SCH (10:00)
[2018-12-14] MEDS: MethylPREDNISolone 40 mg Vial IVP SCH (10:39)
[2018-12-14] MEDS: Tiotropium 18 mcg Cap For Inhalation IH SCH (11:19)
--- NOTE | 2018-12-14 11:57 | CARD ---
APPROVED REPORT Date of service: 12/14/2018 EXAM: Two-dimensional and M-mode echocardiogram with Doppler and color Doppler. Other Information Quality : LimitedRhythm : Atrial Fibrillation INDICATION Aortic Valve Disease Dyspnea Congestive Heart Failure COPD Surgery/Intervention CABG: RISK FACTORS Hypertension 2D DIMENSIONS IVSd0.8 (0.7-1.1cm)LVDd5.4 (3.9-5.9cm) LVOT Diameter2.0 (1.8-2.4cm)PWd1.2 (0.7-1.1cm) LA Rhpzaz94 (18-58mL)LVDs3.4 (2.5-4.0cm) FS (%) 25.0 %LVEF (%)40.0 (>50%) LVEF (Bernard's)42 %IVC0.00 cm M-Mode DIMENSIONS Left Atrium (MM)3.99 (2.5-4.0cm)IVSd0.85 (0.7-1.1cm) Aortic Root3.82 (2.2-3.7cm)LVDd6.97 (4.0-5.6cm) Aortic Cusp Exc.2.47 (1.5-2.0cm)PWd0.74 (0.7-1.1cm) FS (%) 26 %LVDs4.46 (2.0-3.8cm) LVEF (%)41 (>50%) Aortic Valve AoV Peak Oicklgfp424.3cm/sAoV VTI76.3cmAO Peak GR.55mmHg LVOT Peak Vsladfhs851.0cm/sLVOT VTI52.53cmAO Mean GR.28mmHg MALU (VMAX)1.69oe2BTG (VTI)2.04cm2 Mitral Valve MV E Wydtrack100.1cm/sMV A Tkcoqjva40.0cm/sE/A ratio2.9 NLVQ046.98 cm/s TDI E/Lateral E'0.0E/Medial E'0.0 Tricuspid Valve TR Peak Xyqrdgfw011hp/sTR Peak Gr.47yeZqYPME23gpKp LEFT VENTRICLE The left ventricle is normal size. There is mild concentric left ventricular hypertrophy. Left ventricle systolic function is moderately impaired. The Ejection Fraction is 40-45%. Apical motion consistent with pacemaker activation. not available There is no ventricular septal defect visualized. RIGHT VENTRICLE The right ventricle is normal size. There is normal right ventricular wall thickness. There is a pacemaker lead in the right ventricle. ATRIA The left atrium is mildly dilated. The right atrium size is normal. AORTIC VALVE The aortic valve is moderately sclerotic. The aortic valve is probably tri-cuspid. The aortic valve is not well visualized. There is mild aortic regurgitation. There is moderate valvular aortic stenosis. Calculated aortic valve area is 1.2 cm2 with maximum pressure gradient of 42 mmHg and mean pressure gradient of 23 mmHg. MITRAL VALVE Mitral annular calcification is mild to moderate. There is no evidence of mitral valve prolapse. Mitral regurgitation is moderate. TRICUSPID VALVE The tricuspid valve is normal in structure. There is mild tricuspid regurgitation. Right ventricular systolic pressure is estimated at less than 30 mmHg. There is no pulmonary hypertension. PULMONIC VALVE The pulmonic valve is not well visualized. There is no pulmonic valvular regurgitation. GREAT VESSELS The aortic root is normal in size. The ascending aorta is normal in size. The IVC is dilated. PERICARDIAL EFFUSION There is no pericardial effusion. <Conclusion> Left ventricle systolic function is moderately impaired. The Ejection Fraction is 40-45%. Left ventricle systolic function is moderately impaired. The Ejection Fraction is 40-45%. There is moderate valvular aortic stenosis. There is mild aortic regurgitation. Mitral regurgitation is moderate.
--- NOTE | 2018-12-14 11:58 | CP.PCM.PN ---
<Flip Pickering - Last Filed: 12/14/18 16:11> Subjective - Date & Time of Evaluation Date of Evaluation: 12/14/18 Time of Evaluation: 11:30 - Subjective Subjective: Nephro Progress Note for Dr. Cammie Pickering DO, PGY-3 Patient seen and examined at bedside. S/p Echo this AM, pending official read. Reports feeling better overall. Denies pain with urination or hematuria. Denies sensation of abdominal or scrotal swelling. Objective - Vital Signs/Intake and Output Vital Signs (last 24 hours): Temp Pulse Resp BP Pulse Ox 97.4 F L 87 20 149/79 97 12/14/18 08:00 12/14/18 08:00 12/14/18 08:00 12/14/18 10:39 12/14/18 08:00 Intake and Output: 12/14/18 12/14/18 06:59 18:59 Intake Total 200 Output Total 150 Balance 50 - Medications Medications: Current Medications Albuterol/Ipratropium (Duoneb 3 Mg/0.5 Mg (3 Ml) Ud) 3 ml INH RQ4 [facility] Last Admin: 12/14/18 11:30 Dose: 3 ml Amlodipine Besylate (Norvasc) 5 mg PO DAILY [facility] Last Admin: 12/14/18 10:41 Dose: 5 mg Aspirin (Ecotrin) 81 mg PO DAILY [facility] Last Admin: 12/14/18 10:39 Dose: 81 mg Atenolol (Tenormin) 25 mg PO DAILY [facility] Last Admin: 12/14/18 10:42 Dose: 25 mg Clopidogrel Bisulfate (Plavix) 75 mg PO DAILY [facility] Last Admin: 12/14/18 10:40 Dose: 75 mg Docusate Sodium (Colace) 100 mg PO DAILY [facility] Last Admin: 12/14/18 10:39 Dose: 100 mg Fluticasone/Vilanterol (Breo Ellipta 100-25 Mcg Inh) 1 puff INH RQ24 [facility] Furosemide (Lasix) 20 mg IVP DAILY [facility] Last Admin: 12/14/18 10:39 Dose: 20 mg Gabapentin (Neurontin) 100 mg PO DAILY [facility] Last Admin: 12/14/18 10:40 Dose: 100 mg Heparin Sodium (Porcine) (Heparin) 5,000 units SC Q8 [facility] Last Admin: 12/14/18 06:54 Dose: 5,000 units Levothyroxine Sodium (Synthroid) 25 mcg PO DAILY@0630 [facility] Last Admin: 12/14/18 06:54 Dose: 25 mcg Methylprednisolone (Solu-Medrol) 20 mg IVP DAILY [facility] Pantoprazole Sodium (Protonix Inj) 40 mg IVP DAILY [facility] Last Admin: 12/14/18 10:37 Dose: 40 mg Phenazopyridine HCl (Pyridium) 200 mg PO TID [facility] Last Admin: 12/14/18 10:38 Dose: 200 mg Rosuvastatin Calcium (Crestor) 10 mg PO HS [facility] Last Admin: 12/13/18 21:35 Dose: 10 mg Tamsulosin HCl (Flomax) 0.4 mg PO BID [facility] Last Admin: 12/14/18 10:41 Dose: 0.4 mg Tiotropium [place] (Spiriva) 18 mcg IH RQD [facility] Last Admin: 12/14/18 11:19 Dose: Not Given - Labs Labs: 12/14/18 08:34 12/14/18 08:34 - Constitutional Appears: Non-toxic, No Acute Distress - Head Exam Head Exam: ATRAUMATIC, NORMAL INSPECTION, NORMOCEPHALIC - Eye Exam Eye Exam: Normal appearance. absent: Conjunctival injection, Scleral icterus Pupil Exam: absent: Irregular, Unequal - ENT Exam ENT Exam: Mucous Membranes Moist - Neck Exam Neck Exam: Full ROM, Normal Inspection - Respiratory Exam Respiratory Exam: Clear to Ausculation Bilateral, NORMAL BREATHING PATTERN. absent: Accessory Muscle Use, Chest Wall Tenderness, Decreased Breath Sounds, Rales, Rhonchi, Wheezes - Cardiovascular Exam Cardiovascular Exam: REGULAR RHYTHM, RRR, +S1, +S2. absent: Bradycardia, Tachycardia, Irregular Rhythm, JVD, +S4 - GI/Abdominal Exam GI & Abdominal Exam: Soft, Normal Bowel Sounds. absent: Distended, Firm, Guarding, Rigid, Tenderness - Back Exam Back Exam: absent: CVA tenderness (L), CVA tenderness (R) - Neurological Exam Additional comments: awake and alert, following all commands appropriately, moving all extremities spontaneously - Psychiatric Exam Psychiatric exam: Normal Affect, Normal Mood - Skin Skin Exam: Dry, Intact, Normal Color, Warm Assessment and Plan - Assessment and Plan (Free Text) Assessment: This is an 83yo M with PMH of COPD, CAD s/p CABG, Severe requiring TAVR, and BPH with obstructive uropathy recently s/p microwave thermopathy who presented with complaint of SOB. Nephro was consulted for elevated Cr, concerning for renal failure. Plan: 1) Elevated Cr 2/2 obstructive uropathy, improving 2) COPD 3) CAD s/p CABG 4) Severe requiring TAVR 5) BPH 6) Shortness of breath 7) Anemia -improving renal failure, Cr 3.6 prior to microwave thermopathy, 2.4 on admission, baseline per prior charting is 1.2 Urology following, defer to them for gardner placement Avoid nephrotoxic agents as feasible; BP well controlled, can avoid use of ACEi/ARBs at this time Continue Flomax BID Continue Lasix 20mg IV daily in setting of fluid overload -Pt will need likely TAVR prior to any TURP procedure, Agree with Cardio consult Echo obtained, pending official read -Iron studies pending, will likely need iron repletion, s/p 1x dose Epo Patient reviewed and discussed with attending, Dr. Bonds <Pal Bonds - Last Filed: 12/15/18 08:39> Objective - Vital Signs/Intake and Output Vital Signs (last 24 hours): Temp Pulse Resp BP Pulse Ox 97.4 F L 71 20 110/61 100 12/15/18 08:28 12/15/18 08:28 12/15/18 08:28 12/15/18 08:28 12/15/18 08:28 - Medications Medications: Current Medications Albuterol/Ipratropium (Duoneb 3 Mg/0.5 Mg (3 Ml) Ud) 3 ml INH RQ4 [facility] Last Admin: 12/15/18 07:54 Dose: 3 ml Aspirin (Ecotrin) 81 mg PO DAILY [facility] Last Admin: 12/14/18 10:39 Dose: 81 mg Atenolol (Tenormin) 25 mg PO DAILY [facility] Last Admin: 12/14/18 10:42 Dose: 25 mg Clopidogrel Bisulfate (Plavix) 75 mg PO DAILY [facility] Last Admin: 12/14/18 10:40 Dose: 75 mg Docusate Sodium (Colace) 100 mg PO DAILY [facility] Last Admin: 12/14/18 10:39 Dose: 100 mg Ferric Sodium Gluconate Complex (Ferrlecit) 125 mg IVPB DAILY [facility] Stop: 12/22/18 14:01 Last Admin: 12/14/18 13:55 Dose: 125 mg Fluticasone/Vilanterol (Breo Ellipta 100-25 Mcg Inh) 1 puff INH RQ24 [facility] Furosemide (Lasix) 20 mg IVP DAILY [facility] Last Admin: 12/14/18 10:39 Dose: 20 mg Gabapentin (Neurontin) 100 mg PO DAILY [facility] Last Admin: 12/14/18 10:40 Dose: 100 mg Heparin Sodium (Porcine) (Heparin) 5,000 units SC Q8 [facility] Last Admin: 12/15/18 05:35 Dose: 5,000 units Levothyroxine Sodium (Synthroid) 25 mcg PO DAILY@0630 [facility] Last Admin: 12/15/18 05:36 Dose: 25 mcg Methylprednisolone (Solu-Medrol) 20 mg IVP DAILY [facility] Pantoprazole Sodium (Protonix Inj) 40 mg IVP DAILY [facility] Last Admin: 12/14/18 10:37 Dose: 40 mg Phenazopyridine HCl (Pyridium) 200 mg PO TID [facility] Last Admin: 12/14/18 18:58 Dose: 200 mg Rosuvastatin Calcium (Crestor) 10 mg PO [facility] Last Admin: 12/14/18 21:15 Dose: 10 mg Tamsulosin HCl (Flomax) 0.4 mg PO BID [facility] Last Admin: 12/14/18 18:02 Dose: 0.4 mg Tiotropium [place] (Spiriva) 18 mcg IH RQD [facility] Last Admin: 12/15/18 07:54 Dose: 18 mcg Zolpidem Tartrate (Ambien) 5 mg PO [facility] Last Admin: 12/14/18 21:15 Dose: 5 mg - Labs Labs: 12/15/18 06:30 12/15/18 06:30 APTT 34 SECONDS (21-34) 12/14/18 11:44 Attending/Attestation - Attestation I have personally seen and examined this patient.: Yes I have fully participated in the care of the patient.: Yes I have reviewed all pertinent clinical information, including history, physical exam and plan: Yes Notes (Text): Patient seen and examined; I agree with the resident's note as above with the following additions/edits: Patient with KT due to obstructive uropathy with b/l hydronephrosis in the setting of enlarged prostate; I had explained to him at length that he needs gardner catheter placement for decompression of bladder, otherwise he risks further worsening of renal failure; the plan was for urology to place gardner today but patient refused; Unfortunately, patient has selective compliance with medical advice; the definitive treatment for his enlarged prostate could never be done because he wasn't cleared by cardio due to critical ; patient was referred for TAVR but never went; Resp status currently improved; is on diuretics with IV lasix 20 mg daily but this may actually worsen his hydronephrosis unless bladder gets decompressed with gardner; Anemia of CKD with some iron deficiency component; giving IV iron and dose of EPO today;
--- NOTE | 2018-12-14 12:33 | PCM.URO ---
Urology Progress Note - Objective Lab Studies: Reviewed (full note to be dictated thanks) Lab Results Last 24 Hours: Laboratory Results - last 24 hr 12/13/18 12/14/18 12/14/18 21:37 08:34 08:34 WBC 5.2 RBC 2.47 L Hgb 8.1 L Hct 23.7 L MCV 96.2 H MCH 33.0 H MCHC 34.3 RDW 14.2 Plt Count 180 MPV 9.9 Neut % (Auto) 69.0 Lymph % (Auto) 21.5 [place] % (Auto) 8.0 Eos % (Auto) 0.8 Baso % (Auto) 0.7 Neut # (Auto) 3.6 Lymph # (Auto) 1.1 [place] # (Auto) 0.4 Eos # (Auto) 0.0 Baso # (Auto) 0.0 APTT Sodium 139 Potassium 3.6 Chloride 112 H Carbon Dioxide 22 Anion Gap 9 L BUN 23 H Creatinine 2.4 H Est GFR ( Amer) 32 Est GFR (Non-Af Amer) 26 Random Glucose 94 Calcium 9.0 Phosphorus 4.9 H Magnesium 1.8 Iron TIBC % Saturation Ferritin 244.0 Total Bilirubin 0.3 AST 19 ALT 21 D Alkaline Phosphatase 55 Total Protein 5.9 L Albumin 3.5 Globulin 2.4 Albumin/Globulin Ratio 1.5 25-OH Vitamin D Total Urine Color Yellow Urine Clarity Clear Urine pH 5.0 Ur Specific Chamberlain 1.009 Urine Protein Negative Urine Glucose (UA) Normal Urine Ketones Negative Urine Blood Negative Urine Nitrate Negative Urine Bilirubin Negative Urine Urobilinogen Normal Ur Leukocyte Esterase 2+ H Urine WBC (Auto) 13 H Urine RBC (Auto) 1 Hyaline Casts 0-2 12/14/18 12/14/18 12/14/18 08:34 08:34 11:44 WBC RBC Hgb Hct MCV MCH MCHC RDW Plt Count MPV Neut % (Auto) Lymph % (Auto) Robeson % (Auto) Eos % (Auto) Baso % (Auto) Neut # (Auto) Lymph # (Auto) [place] # (Auto) Eos # (Auto) Baso # (Auto) APTT 34 Sodium Potassium Chloride Carbon Dioxide Anion Gap BUN Creatinine Est GFR ( Amer) Est GFR (Non-Af Amer) Random Glucose Calcium Phosphorus Magnesium Iron 46 L TIBC 223 L % Saturation 21 Ferritin Total Bilirubin AST ALT Alkaline Phosphatase Total Protein Albumin Globulin Albumin/Globulin Ratio 25-OH Vitamin D Total 52.3 Urine Color Urine Clarity Urine pH Ur Specific [place] Urine Protein Urine Glucose (UA) Urine Ketones Urine Blood Urine Nitrate Urine Bilirubin Urine Urobilinogen Ur Leukocyte Esterase Urine WBC (Auto) Urine RBC (Auto) Hyaline Casts Intake & Output: Intake & Output 12/13/18 12/14/18 12/14/18 18:59 06:59 18:59 Intake Total 200 Output Total 150 Balance 50 Weight 190 lb Intake: Oral 200 Output: Urine 150 Urine, Voided 150 Other: # Voids Urine, Voided 1 # Bowel Movements 0 Vital Signs: Vital Signs - 24 hr 12/13/18 12/13/18 12/13/18 13:29 14:13 15:55 Temperature 97.4 F L Pulse Rate 99 H 90 Respiratory 20 20 Rate Blood Pressure 136/72 142/58 L O2 Sat by Pulse 99 98 98 Oximetry 12/13/18 12/13/18 12/13/18 17:40 18:03 19:08 Temperature 97.4 F L Pulse Rate 85 87 Respiratory 20 Rate Blood Pressure 136/63 O2 Sat by Pulse 96 96 Oximetry 12/13/18 12/13/18 12/13/18 20:33 22:35 23:42 Temperature 97.8 F Pulse Rate 86 97 H 74 Respiratory 20 Rate Blood Pressure 117/71 O2 Sat by Pulse 94 L Oximetry 12/14/18 12/14/18 12/14/18 00:10 07:40 08:00 Temperature 97.4 F L Pulse Rate 78 81 87 Respiratory 20 Rate Blood Pressure 129/75 O2 Sat by Pulse 97 Oximetry 12/14/18 10:39 Temperature Pulse Rate Respiratory Rate Blood Pressure 149/79 O2 Sat by Pulse Oximetry
--- NOTE | 2018-12-14 12:57 | CARD ---
APPROVED REPORT Date of service: 12/13/2018 EKG Measurement Heart [id number] ID [id number] <Conclusion> Atrial-sensed ventricular-paced rhythm with frequent premature ventricular complexes Abnormal ECG
[2018-12-14] MEDS: Ferric Sodium Gluconat Complex 62.5 mg/5 ml Vial IVPB SCH (13:55)
[2018-12-14] MEDS ORDERED: Epoetin Alfa 10,000 unit/ml Dialysis SC ONE (14:30)
[2018-12-15] MEDS: Albuterol-Ipratrop 3 mg / 0.5 (3 ml) UD INH SCH ×4 (00:49→16:01)
[2018-12-15] MEDS: Levothyroxine 25 MCG TAB PO SCH (05:36)
[2018-12-15 06:42] LABS: BASO % 0.6 % (0.0-2.0); EOS # 0.1 K/uL (0.0-0.7); EOS % 1.3 % (0.0-4.0); HEMOGLOBIN 8.4 g/dL (12.0-18.0); LYMPH # 1.3 K/uL (1.0-4.3); LYMPH % 20.4 % (20.0-40.0); MEAN CELL VOLUME 97.5 fL (80.0-94.0); MEAN CORPUSCULAR HEMOGLOBIN 32.1 pg (27.0-31.0); MEAN PLATELET VOLUME 8.9 fL (7.2-11.7); MONO # 0.4 K/uL (0.0-0.8); MONO % 6.9 % (0.0-10.0); NEUT # 4.6 K/uL (1.8-7.0); NEUT % 70.8 % (50.0-75.0); RBC 2.6 Mil/uL (4.40-5.90); RED CELL DISTRIBUTION WIDTH 14.6 % (11.5-14.5); WHITE BLOOD COUNT 6.5 K/uL (4.8-10.8)
--- NOTE | 2018-12-15 07:33 | CP.PCM.PN ---
Subjective - Date & Time of Evaluation Date of Evaluation: 12/15/18 Time of Evaluation: 08:00 - Subjective Subjective: Medicine progress note for hospitalist Dr. Wilkerson. Patient seen and examined at bedside. Patient is s/p cardiac stress test and alessandra al scan. Patient reports breathing is much improved. Denies chest pain, headaches, vision changes, SOB at moment, abdominal pain, fevers, chills, nausea. Pt states he would not like a gardner at this time if it is required. Patient states he has difficulty producing urine. Objective - Vital Signs/Intake and Output Vital Signs (last 24 hours): Temp Pulse Resp BP Pulse Ox 97.4 F L 72 20 100/62 98 12/14/18 23:40 12/14/18 23:40 12/14/18 23:40 12/14/18 23:40 12/14/18 23:40 - Medications Medications: Current Medications Albuterol/Ipratropium (Duoneb 3 Mg/0.5 Mg (3 Ml) Ud) 3 ml INH RQ4 [facility] Last Admin: 12/15/18 00:49 Dose: Not Given Aspirin (Ecotrin) 81 mg PO DAILY [facility] Last Admin: 12/14/18 10:39 Dose: 81 mg Atenolol (Tenormin) 25 mg PO DAILY [facility] Last Admin: 12/14/18 10:42 Dose: 25 mg Clopidogrel Bisulfate (Plavix) 75 mg PO DAILY [facility] Last Admin: 12/14/18 10:40 Dose: 75 mg Docusate Sodium (Colace) 100 mg PO DAILY [facility] Last Admin: 12/14/18 10:39 Dose: 100 mg Ferric Sodium Gluconate Complex (Ferrlecit) 125 mg IVPB DAILY [facility] Stop: 12/22/18 14:01 Last Admin: 12/14/18 13:55 Dose: 125 mg Fluticasone/Vilanterol (Breo Ellipta 100-25 Mcg Inh) 1 puff INH RQ24 [facility] Furosemide (Lasix) 20 mg IVP DAILY [facility] Last Admin: 12/14/18 10:39 Dose: 20 mg Gabapentin (Neurontin) 100 mg PO DAILY [facility] Last Admin: 12/14/18 10:40 Dose: 100 mg Heparin Sodium (Porcine) (Heparin) 5,000 units SC Q8 [facility] Last Admin: 12/15/18 05:35 Dose: 5,000 units Levothyroxine Sodium (Synthroid) 25 mcg PO DAILY@0630 [facility] Last Admin: 12/15/18 05:36 Dose: 25 mcg Methylprednisolone (Solu-Medrol) 20 mg IVP DAILY [facility] Pantoprazole Sodium (Protonix Inj) 40 mg IVP DAILY [facility] Last Admin: 12/14/18 10:37 Dose: 40 mg Phenazopyridine HCl (Pyridium) 200 mg PO TID [facility] Last Admin: 12/14/18 18:58 Dose: 200 mg Rosuvastatin Calcium (Crestor) 10 mg PO HS [facility] Last Admin: 12/14/18 21:15 Dose: 10 mg Tamsulosin HCl (Flomax) 0.4 mg PO BID [facility] Last Admin: 12/14/18 18:02 Dose: 0.4 mg Tiotropium [place] (Spiriva) 18 mcg IH RQD [facility] Last Admin: 12/14/18 11:19 Dose: Not Given Zolpidem Tartrate (Ambien) 5 mg PO [facility] Last Admin: 12/14/18 21:15 Dose: 5 mg - Labs Labs: 12/15/18 06:30 12/14/18 08:34 APTT 34 SECONDS (21-34) 12/14/18 11:44 - Constitutional Appears: Non-toxic, No Acute Distress - Head Exam Head Exam: NORMAL INSPECTION - Eye Exam Eye Exam: EOMI, Normal appearance - ENT Exam ENT Exam: Mucous Membranes Moist - Respiratory Exam Respiratory Exam: Decreased Breath Sounds, Rales, NORMAL BREATHING PATTERN - Cardiovascular Exam Cardiovascular Exam: +S1, +S2. absent: Murmur - GI/Abdominal Exam GI & Abdominal Exam: Soft, Normal Bowel Sounds. absent: Firm, Guarding, Rigid - Extremities Exam Extremities Exam: Full ROM, Normal Inspection. absent: Calf Tenderness, Pedal Edema - Back Exam Back Exam: absent: CVA tenderness (L), CVA tenderness (R) - Neurological Exam Neurological Exam: Alert, Awake, Oriented x3 - Psychiatric Exam Psychiatric exam: Normal Affect, Normal Mood - Skin Skin Exam: Dry, Intact, Normal Color, Warm
[2018-12-15 07:40] LABS: ALB/GLOB RATIO 1.5 (1.0-2.1); ALBUMIN 3.7 g/dL (3.5-5.0); CALCIUM 8.9 mg/dl (8.6-10.4)
[2018-12-15] MEDS: Tiotropium 18 mcg Cap For Inhalation IH SCH (07:54)
[2018-12-15] MEDS ORDERED: MethylPREDNISolone 40 mg Vial IVP SCH (10:00)
--- NOTE | 2018-12-15 11:42 | NM ---
Date of service: 12/15/2018 PROCEDURE: Renal scan with Lasix HISTORY: r/o obstructive uropathy COMPARISON: 12/13/2018 renal ultrasound TECHNIQUE: 21.2 mCi technetium 99 M DTPA administered intravenously. 40 mg of Lasix administered intravenously at 20 min. FINDINGS: Right Kidney: Flow component: Normal flow to the right kidney. Time to peak: 24.5 min Peak to T1/2 Peak: Not applicable T1 half post Lasix 8.3 hr. Left Kidney: Flow component: Delayed flow/perfusion to the left kidney. Time to peak: 26.5 min Peak to T1/2 Peak: 6.5 min T1 half post Lasix 2.5 hr. Split Renal Function: Right kidney 53 % Left kidney 47 % IMPRESSION: Findings consistent with structural hydronephrosis, hydroureter. Based on renal profiles and comparison with recent ultrasound and CT this is likely long-standing hydroureteronephrosis.
[2018-12-15] MEDS: Fluticasone-Vilanterol 100/25mcg Diskus INH SCH ×2 (11:51→13:13)
[2018-12-15] MEDS: Ferric Sodium Gluconat Complex 62.5 mg/5 ml Vial IVPB SCH (12:04)
--- NOTE | 2018-12-15 12:29 | CT ---
Date of service: 12/15/2018 PROCEDURE: CT abdomen pelvis HISTORY: Bilateral hydronephrosis COMPARISON: Comparison made with concurrent renal ultrasound. TECHNIQUE: Contiguous axial images of the abdomen and pelvis performed without oral or intravenous contrast material. Additional 2D sagittal and coronal reformats generated. Radiation dose: Total exam DLP = 865.56 mGy-cm. This CT exam was performed using one or more of the following dose reduction techniques: Automated exposure control, adjustment of the mA and/or kV according to patient size, and/or use of iterative reconstruction technique. FINDINGS: LOWER THORAX: Heart size is mildly enlarged. No significant pericardial effusion. There is a small hiatal hernia. Small to medium-sized bilateral effusions are present. LIVER: Liver exhibits relatively normal size.. Multiple varying sized round and elliptical shaped foci of low attenuation scattered throughout the hepatic parenchyma, the largest of that is located in the right lobe measuring approximately 2.3 x 2.0 cm and exhibits Hounsfield units in the low double digits likely representing a cyst. Most of the other foci are too small to characterize though may also represent cysts. Follow-up triple phase CT scan of the liver could be performed to confirm. And exclude other pathologies GALLBLADDER AND BILE DUCTS: Gallbladder physiologically distended. No evidence of intraluminal gallbladder calculi. PANCREAS: Pancreas is somewhat atrophic and fatty replaced. There are no pancreatic masses collections or calcifications. SPLEEN: Unremarkable. No splenomegaly. ADRENALS: Right adrenal gland is somewhat nodular and exhibits low-attenuation appearance; rule out incidental adrenal adenoma or possibly myelolipoma. Left adrenal gland is also somewhat nodular in appearance and exhibits low attenuation possibly representing a small adenoma as well. KIDNEYS AND URETERS: There is moderate to fairly significant bilateral hydronephrosis however no obvious obstructing calculi are identified. BLADDER: Urinary bladder is distended with [id number] wall thickening some of which is asymmetric. Findings in part likely due to muscular hypertrophy however other intrinsic/invasive wall lesion not excluded. Rule out chronic bladder outlet obstruction REPRODUCTIVE: The prostate gland is enlarged encroaches into the floor of the urinary bladder. Prostate gland measures approximately 4.5 cm in transverse dimension. Multiple prostatic calcifications are present.. APPENDIX: Normal appendix BOWEL: Evaluation of the bowel is somewhat limited due to incomplete opacification. The stomach is incompletely distended with slight thick-walled appearance. Visualized loops of small bowel exhibit normal contour and caliber. No evidence of acute mechanical small bowel obstruction. The cecum is near midline in location (questionable cecal bascule) with a large amount of stool in the that extends superiorly into the ascending colon consistent with mild fecal retention/constipation. PERITONEUM: Unremarkable. No fluid collection. No free air. Small fat containing umbilical hernia. Small bilateral fat containing inguinal hernias. LYMPH NODES: Unremarkable. No enlarged lymph nodes. VASCULATURE: Unremarkable. No aortic aneurysm. Mild aortic atherosclerotic calcification or mural plaque present. BONES: No acute compression fractures nor retropulsed fragments. Minor asymmetric chronic anterior stature loss of the L2 and L3 segments noted. Mild degenerative osteoarthritis both hip joints. OTHER FINDINGS: None. IMPRESSION: moderate to fairly significant bilateral hydronephrosis however no obvious obstructing calculi are identified. Urinary bladder is distended with [id number] wall thickening some of which is asymmetric. Findings in part likely due to muscular hypertrophy however other intrinsic/invasive wall lesion not excluded. Rule out chronic bladder outlet obstruction enlarged prostate gland with multiple calcifications. Multiple varying sized low-attenuation lesions scattered throughout the hepatic parenchyma the largest of which probably represents a small cyst however the smaller lesions are too small to characterize. Consider follow-up triple phase CT scan of the liver for further evaluation and exclude other pathology. Small to medium-sized bilateral effusions with mild bibasilar atelectasis. Bilateral nodular adrenal glands; rule out small bilateral adenomas; the right adrenal gland exhibits Hounsfield units in the negative digits and the possibility of a adrenal myelolipoma not excluded. Consider follow-up noncontrast MRI of the adrenal glands
--- NOTE | 2018-12-15 12:48 | US ---
Date of service: 12/14/2018 PROCEDURE: Ultrasound of the Bladder HISTORY: pre and post void/obstructive uropathy COMPARISON: December 15, 2018. Abdomen and pelvis. TECHNIQUE: Sonographic evaluation of the bladder was performed. FINDINGS: Diffuse bladder wall thickening and trabeculation. No visible intraluminal debris. No calculus or gross mass lesion. No free fluid in pelvis. Prevoid Volume: 276.4 cc. Post void residual: 146.8 cc. Nonvisualization of ureteral jets. Markedly enlarged prostate calculated volume 112.8 mL. IMPRESSION: Enlarged prostate, bladder wall thickening/trabeculation. Small capacitance bladder, postvoid residual. Concordant findings (preliminary report) provided by [facility].
--- NOTE | 2018-12-15 13:27 | PCM.URO ---
Urology Progress Note - General General: No Complaints, Tolerating Diet - Subjective Abdominal Pain: No Flank Pain: No Nausea: No Vomiting: No Hematuria: No Weak Stream: No (better flow) Fever & Chills: No - Objective Lab Studies: Reviewed Lab Results Last 24 Hours: Laboratory Results - last 24 hr 12/15/18 12/15/18 06:30 06:30 WBC 6.5 RBC 2.60 L Hgb 8.4 L Hct 25.3 L MCV 97.5 H MCH 32.1 H MCHC 33.0 RDW 14.6 H Plt Count 209 MPV 8.9 Neut % (Auto) 70.8 Lymph % (Auto) 20.4 Coal % (Auto) 6.9 Eos % (Auto) 1.3 Baso % (Auto) 0.6 Neut # (Auto) 4.6 Lymph # (Auto) 1.3 Coal # (Auto) 0.4 Eos # (Auto) 0.1 Baso # (Auto) 0.0 Sodium 137 Potassium 3.9 Chloride 107 Carbon Dioxide 24 Anion Gap 10 BUN 29 H Creatinine 2.7 H Est GFR ( Amer) 28 Est GFR (Non-Af Amer) 23 Random Glucose 100 Calcium 8.9 Phosphorus 4.6 H Magnesium 1.7 Total Bilirubin 0.3 AST 23 ALT 12 L D Alkaline Phosphatase 52 Total Protein 6.3 Albumin 3.7 Globulin 2.6 Albumin/Globulin Ratio 1.5 Prostate Specific Ag 418 H Intake & Output: Intake & Output 12/14/18 12/15/18 12/15/18 18:59 06:59 18:59 Intake Total 580 Balance 580 Weight 195 lb 1 oz Intake: Intake, IV Amount 100 Left Antecubital 100 Oral 480 Other: # Voids Urine, Voided 3 Vital Signs: Vital Signs - 24 hr 12/14/18 12/14/18 12/14/18 15:51 16:13 23:00 Temperature 97.4 F L Pulse Rate 78 85 66 Respiratory 20 Rate Blood Pressure 100/64 O2 Sat by Pulse 98 Oximetry 12/14/18 12/15/18 12/15/18 23:40 07:45 08:28 Temperature 97.4 F L 97.4 F L Pulse Rate 72 60 71 Respiratory 20 20 Rate Blood Pressure 100/62 110/61 O2 Sat by Pulse 98 100 Oximetry - Physical Exam Abdominal Exam: Soft, Non-Tender, Non-Distended Back: No CVA Tenderness Genitalia: Without Inflammation Urine Color: Clear, Yellow - Plan Ambulation - Out of Bed: Yes Intake & Output: Yes See Orders: Yes Additional Information: IMP: chronic retention. chf. enlarged prostate. elevated psa. P?Rec: review records. ct scan. Poss prostate bx. add proscar. Disccused w pt, family, and nursing staff - Date & Time of Note Date: 12/15/18 Time: 13:30
[2018-12-15 16:13] VITALS: BP 108/70; RESP 18; TEMP 98.4
[2018-12-15 16:30] VITALS: PULSE 80
--- NOTE | 2018-12-15 18:30 | CP.PCM.PN ---
Subjective - Date & Time of Evaluation Date of Evaluation: 12/15/18 Time of Evaluation: 14:00 - Subjective Subjective: Nephro Progress Note for Dr. Cammie Pickering DO PGY-3 Patient seen and examined at bedside. S/p nuclear stress test and nuclear renal tests. Continues to report feeling better overall. Continues to refuse gardner placement, despite risks of worsening and/or permanent renal damage, explained repeatedly and thoroughly to him. Denies chest pain, dysuria, hematuria, fevers, or chills. Objective - Vital Signs/Intake and Output Vital Signs (last 24 hours): Temp Pulse Resp BP Pulse Ox 98.4 F 80 18 108/70 97 12/15/18 16:12 12/15/18 16:26 12/15/18 16:12 12/15/18 16:12 12/15/18 16:26 Intake and Output: 12/15/18 12/15/18 06:59 18:59 Intake Total 460 Balance 460 - Medications Medications: Current Medications Albuterol/Ipratropium (Duoneb 3 Mg/0.5 Mg (3 Ml) Ud) 3 ml INH RQ4 [facility] Last Admin: 12/15/18 16:01 Dose: 3 ml Aspirin (Ecotrin) 81 mg PO DAILY [facility] Last Admin: 12/15/18 12:04 Dose: 81 mg Docusate Sodium (Colace) 100 mg PO DAILY [facility] Last Admin: 12/15/18 11:53 Dose: 100 mg Ferric Sodium Gluconate Complex (Ferrlecit) 125 mg IVPB DAILY [facility] Stop: 12/22/18 14:01 Last Admin: 12/15/18 12:04 Dose: 125 mg Finasteride (Proscar) 5 mg PO DAILY [facility] Last Admin: 12/15/18 14:31 Dose: 5 mg Fluticasone/Vilanterol (Breo Ellipta 100-25 Mcg Inh) 1 puff INH RQ24 [facility] Last Admin: 12/15/18 13:13 Dose: Not Given Gabapentin (Neurontin) 100 mg PO DAILY [facility] Last Admin: 12/15/18 11:53 Dose: 100 mg Heparin Sodium (Porcine) (Heparin) 5,000 units SC Q8 [facility] Last Admin: 12/15/18 14:30 Dose: 5,000 units Levothyroxine Sodium (Synthroid) 25 mcg PO DAILY@0630 [facility] Last Admin: 12/15/18 05:36 Dose: 25 mcg Lisinopril (Zestril) 2.5 mg PO DAILY [facility] Methylprednisolone (Solu-Medrol) 20 mg IVP DAILY [facility] Last Admin: 12/15/18 11:52 Dose: 20 mg Metoprolol Succinate (Toprol Xl) 50 mg PO DAILY [facility] Pantoprazole Sodium (Protonix Inj) 40 mg IVP DAILY [facility] Last Admin: 12/15/18 11:52 Dose: 40 mg Phenazopyridine HCl (Pyridium) 200 mg PO TID PRN PRN Reason: dysuria Stop: 12/17/18 12:39 Rosuvastatin Calcium (Crestor) 10 mg PO [facility] Last Admin: 12/14/18 21:15 Dose: 10 mg Tamsulosin HCl (Flomax) 0.4 mg PO BID [facility] Last Admin: 12/15/18 18:00 Dose: Not Given Tiotropium Elora (Spiriva) 18 mcg IH RQD [facility] Last Admin: 12/15/18 07:54 Dose: 18 mcg Zolpidem Tartrate (Ambien) 5 mg PO [facility] Last Admin: 12/14/18 21:15 Dose: 5 mg - Labs Labs: 12/15/18 06:30 12/15/18 06:30 APTT 34 SECONDS (21-34) 12/14/18 11:44 - Additional Findings Additional findings: - Constitutional Appears: Non-toxic, No Acute Distress - Head Exam Head Exam: ATRAUMATIC, NORMAL INSPECTION, NORMOCEPHALIC - Eye Exam Eye Exam: Normal appearance. absent: Conjunctival injection, Scleral icterus Pupil Exam: absent: Irregular, Unequal - ENT Exam ENT Exam: Mucous Membranes Moist - Neck Exam Neck Exam: Full ROM, Normal Inspection - Respiratory Exam Respiratory Exam: Clear to Ausculation Bilateral, NORMAL BREATHING PATTERN. absent: Accessory Muscle Use, Chest Wall Tenderness, Decreased Breath Sounds, Rales, Rhonchi, Wheezes - Cardiovascular Exam Cardiovascular Exam: REGULAR RHYTHM, RRR, +S1, +S2. absent: Bradycardia, Tachycardia, Irregular Rhythm, JVD, +S4 - GI/Abdominal Exam GI & Abdominal Exam: Soft, Normal Bowel Sounds. absent: Distended, Firm, Gu arding, Rigid, Tenderness - Back Exam Back Exam: absent: CVA tenderness (L), CVA tenderness (R) - Neurological Exam awake and alert, following all commands appropriately, moving all extremities spontaneously - Psychiatric Exam Psychiatric exam: Normal Affect, Normal Mood - Skin Skin Exam: Dry, Intact, Normal Color, Warm Assessment and Plan - Assessment and Plan (Free Text) Assessment: This is an 83yo M with PMH of COPD, CAD s/p CABG, Severe requiring TAVR, and BPH with obstructive uropathy recently s/p microwave thermopathy who presented with complaint of SOB. Nephro was consulted for elevated Cr, concerning for renal failure. Plan: 1) Elevated Cr 2/2 obstructive uropathy, improving 2) COPD 3) CAD s/p CABG 4) Severe requiring TAVR 5) BPH 6) Shortness of breath 7) Anemia 8) bilateral hydronephrosis -renal failure; Cr 3.6 prior to microwave thermopathy, 2.4 on admission, baseline per prior charting is 1.4; worsened to 2.7 today Urology following, defer to them for gardner placement Avoid nephrotoxic agents as feasible; BP well controlled, can avoid use of ACEi/ARBs at this time Continue Flomax BID Continue Lasix 20mg IV daily in setting of fluid overload Strong likelihood of obstructive etiology of renal failure, especially in setting of bilateral hydronephrosis, but patient continues to refuse gardner -Pt will need likely TAVR prior to any TURP procedure, Agree with Cardio consult Echo obtained, notable for EF 40-45%, mild LVH, moderate , mild AR, mild MR -Continue Iron repletion -Nuclear stress test normal, pending results of nuclear renal study Patient reviewed and discussed with attending, Dr. Bonds
[2018-12-15 19:02] VITALS: O2SAT 90
--- NOTE | 2018-12-15 20:48 | CP.PCM.DIS ---
<Ebenezer Ortega M - Last Filed: 12/15/18 20:45> Provider - Provider Date of Admission: 12/13/18 14:19 Attending physician: Surendra Wilkerson MD Consults: 12/13/18 15:10 Urology Consult Routine Comment: Consulting Provider: Evangelist More Consulting Physician: Evangelist More Reason for Consult: obstructive uropathy, CR improving from 10/3012/13/18 15:38 Cardiology Consult Routine Comment: Consulting Provider: Bonifacio Howard Consulting Physician: Bonifacio Howard Reason for Consult: BELTRE, Hx of AorticStenosis, hx of CABG Nephrology Consult Routine Comment: Consulting Provider: Pal Bonds Consulting Physician: Pal Bonds Reason for Consult: Obstructive Uropathy, ARF Time Spent in preparation of Discharge (in minutes): 40 Diagnosis - Discharge Diagnosis (1) Renal insufficiency Status: Acute Comment: likely due to obstructive uropathy. Patient refusing gardner. (2) CHF exacerbation Status: Acute Comment: S/p normal stress test, tropolol xl 50 started, d/magalys atenolol 25 mg daily (3) Heart failure with reduced ejection fraction Status: Acute Comment: EF 40%, medically optimized patient. ACEi, Beta carlos, aspirin, lasix Hospital Course - Lab Results Lab Results: Micro Results 12/13/18 21:37 Urine,Clean Catch Urine Culture - Final No Growth (<1,000 CFU/ML) Most Recent Lab Values WBC 6.5 K/uL (4.8-10.8) 12/15/18 06:30 RBC 2.60 Mil/uL (4.40-5.90) L 12/15/18 06:30 Hgb 8.4 g/dL (12.0-18.0) L 12/15/18 06:30 Hct 25.3 % (35.0-51.0) L 12/15/18 06:30 MCV 97.5 fL (80.0-94.0) H 12/15/18 06:30 MCH 32.1 pg (27.0-31.0) H 12/15/18 06:30 MCHC 33.0 g/dL (33.0-37.0) 12/15/18 06:30 RDW 14.6 % (11.5-14.5) H 12/15/18 06:30 Plt Count 209 K/uL (130-400) 12/15/18 06:30 MPV 8.9 fL (7.2-11.7) 12/15/18 06:30 Neut % (Auto) 70.8 % (50.0-75.0) 12/15/18 06:30 Lymph % (Auto) 20.4 % (20.0-40.0) 12/15/18 06:30 Calloway % (Auto) 6.9 % (0.0-10.0) 12/15/18 06:30 Eos % (Auto) 1.3 % (0.0-4.0) 12/15/18 06:30 Baso % (Auto) 0.6 % (0.0-2.0) 12/15/18 06:30 Neut # (Auto) 4.6 K/uL (1.8-7.0) 12/15/18 06:30 Lymph # (Auto) 1.3 K/uL (1.0-4.3) 12/15/18 06:30 Calloway # (Auto) 0.4 K/uL (0.0-0.8) 12/15/18 06:30 Eos # (Auto) 0.1 K/uL (0.0-0.7) 12/15/18 06:30 Baso # (Auto) 0.0 K/uL (0.0-0.2) 12/15/18 06:30 APTT 34 SECONDS (21-34) 12/14/18 11:44 D-Dimer, Quantitative 590 ng/mlDDU (0-243) H 12/13/18 10:59 Sodium 137 mmol/L (132-148) 12/15/18 06:30 Potassium 3.9 mmol/L (3.6-5.2) 12/15/18 06:30 Chloride 107 mmol/L (98-107) 12/15/18 06:30 Carbon Dioxide 24 mmol/L (22-30) 12/15/18 06:30 Anion Gap 10 (10-20) 12/15/18 06:30 BUN 29 mg/dL (9-20) H 12/15/18 06:30 Creatinine 2.7 mg/dL (0.8-1.5) H 12/15/18 06:30 Est GFR ( Amer) 28 12/15/18 06:30 Est GFR (Non-Af Amer) 23 12/15/18 06:30 Random Glucose 100 mg/dL (75-110) 12/15/18 06:30 Calcium 8.9 mg/dl (8.6-10.4) 12/15/18 06:30 Phosphorus 4.6 mg/dL (2.5-4.5) H 12/15/18 06:30 Magnesium 1.7 mg/dL (1.6-2.3) 12/15/18 06:30 Iron 46 ug/dL (49-181) L 12/14/18 08:34 TIBC 223 ug/dL (250-450) L 12/14/18 08:34 % Saturation 21 (20-55) 12/14/18 08:34 Ferritin 244.0 ng/mL 12/14/18 08:34 Total Bilirubin 0.3 mg/dL (0.2-1.3) 12/15/18 06:30 AST 23 U/L (17-59) 12/15/18 06:30 ALT 12 U/L (21-72) L D 12/15/18 06:30 Alkaline Phosphatase 52 U/L (38-126) 12/15/18 06:30 Total Creatine Kinase 240 U/L (55-170) H 12/13/18 10:59 CK-MB (Mass) 2.58 ng/mL (0.0-3.38) 12/13/18 10:59 Troponin I < 0.0120 ng/mL (0.00-0.120) 12/13/18 10:59 NT-Pro-B Natriuret Pep 3810 pg/mL (0-900) H 12/13/18 10:59 Total Protein 6.3 g/dL (6.3-8.3) 12/15/18 06:30 Albumin 3.7 g/dL (3.5-5.0) 12/15/18 06:30 Globulin 2.6 gm/dL (2.2-3.9) 12/15/18 06:30 Albumin/Globulin Ratio 1.5 (1.0-2.1) 12/15/18 06:30 Prostate Specific Ag 418 ng/mL (0.00-4.0) H 12/15/18 06:30 25-OH Vitamin D Total 52.3 NG/ML (30.0-100.0) 12/14/18 08:34 PTH w/Ion &Tot Calcium 120 pg/mL (14-64) H 12/14/18 08:34 Urine Color Yellow (YELLOW) 12/13/18 21:37 Urine Clarity Clear (Clear) 12/13/18 21:37 Urine pH 5.0 (5.0-8.0) 12/13/18 21:37 Ur Specific Schaller 1.009 (1.003-1.030) 12/13/18 21:37 Urine Protein Negative mg/dL (NEGATIVE) 12/13/18 21:37 Urine Glucose (UA) Normal mg/dL (Normal) 12/13/18 21:37 Urine Ketones Negative mg/dL (NEGATIVE) 12/13/18 21:37 Urine Blood Negative (NEGATIVE) 12/13/18 21:37 Urine Nitrate Negative (NEGATIVE) 12/13/18 21:37 Urine Bilirubin Negative (NEGATIVE) 12/13/18 21:37 Urine Urobilinogen Normal mg/dL (0.2-1.0) 12/13/18 21:37 Ur Leukocyte Esterase 2+ Elizabeth/uL (Negative) H 12/13/18 21:37 Urine WBC (Auto) 13 /hpf (0-5) H 12/13/18 21:37 Urine RBC (Auto) 1 /hpf (0-3) 12/13/18 21:37 Hyaline Casts 0-2 /lpf (0-2) 12/13/18 21:37 - Hospital Course Hospital Course: HPI: 83M PMHx of COPD, CABG, BPH, Obstructive Uropathy presenting with SOB for one week. Pt says one week ago he had a fever after a procedure with Dr Blanca microwave thermotherapy. Pt states he tolerated procedure well and high urine output increased substantially. Sates hes been SOB and has had BELTRE since then. Pt went to see Dr Santos today his PMD and was told to come into ED. Pt tried taking his home inhalers but had no relief of symptoms. Pt has also run out of home O2, feels like he needs oxygen. Pt was recently seen by Dr More in office Cr was 3.6 10/30/18, -- 1.3 on 06/30/18 and a psa 180. Pt was previously with urinary retention and had problems initiating stream, however now improved. During hospital course, asymptomatic anemic, elevated BNP of 3000s, d dimmer 590, KT w/Cr of 2.4. V/Q was performed indicated low probability. Patient refused gardner insertion due to concerns of obstructive uropathy. Patient had renal scan revealing hydronephrosis b/l. Abd CT reveling multiple foci in liver.Stress test was performed, which was normal. Patient stated due to multiple cormorbidities he did not wish to be in the hospital and would like to follow up outpatient. Patient creatine remained elevated, w/ GFR in mid 20s. Cardio, nephro, urology cleared patient as patient was going to refuse further medical workup and ran a risk of deterioration staying in the hospital longer. Above is only a summary of the patient while hospitalized, See EMR for full details. Below are discharge instruction provided to patient upon discharge. Patient is stable for discharge per Dr. Wilkerson. Please see reconciled medications. New medications: lisinopril 2.5 mg one tablet daily toprolol xl 50 mg one tablet daily flomax 0.4 mg one tablet twice daily please stop plavix 75 mg daily please stop atenolol 25 mg daily please stop if taking amlodipine daily if you were taking it please resume all other medications as in reconciled medication list. Please follow up with primary doctor in 4-5 days for repeat BMP. Please follow up with urology in 1 week. Please follow up nephrology in 1 week. If any of the symptoms return, please return to nearest emergency facility. Discharge Exam - Head Exam Head Exam: NORMAL INSPECTION - Eye Exam Eye Exam: EOMI, Normal appearance - ENT Exam ENT Exam: Mucous Membranes Moist - Respiratory Exam Respiratory Exam: Rales, NORMAL BREATHING PATTERN. absent: Rhonchi, Wheezes - Cardiovascular Exam Cardiovascular Exam: +S1, +S2 - GI/Abdominal Exam GI & Abdominal Exam: Normal Bowel Sounds, Soft - Extremities Exam Additional comments: no pedal edema, no calf tenderness - Back Exam Back exam: absent: CVA tenderness (L), CVA tenderness (R) - Neurological Exam Neurological exam: Alert, Oriented x3 - Psychiatric Exam Psychiatric exam: Normal Affect, Normal Mood - Skin Skin Exam: Dry, Intact, Normal Color, Warm Discharge Plan - Discharge Medications Prescriptions: Lisinopril 2.5 mg PO DAILY #30 tab Metoprolol Succinate [Toprol Xl] 50 mg PO DAILY #30 tab.er.24h Tamsulosin [Flomax] 0.4 mg PO BID #60 cap - Follow Up Plan Condition: SERIOUS Disposition: HOME/ ROUTINE Instructions: Heart Healthy Diet, Heart Failure (DC) Additional Instructions: Patient is stable for discharge per Dr. Wilkerson. Please see reconciled medications. New medications: lisinopril 2.5 mg one tablet daily toprolol xl 50 mg one tablet daily flomax 0.4 mg one tablet twice daily please stop plavix 75 mg daily please stop atenolol 25 mg daily please stop if taking amlodipine daily if you were taking it please resume all other medications as in reconciled medication list. Please follow up with primary doctor in 4-5 days for repeat BMP. Please follow up with urology in 1 week. Please follow up nephrology in 1 week. If any of the symptoms return, please return to nearest emergency facility. El paciente es estable para el linda segn el Dr. Wilkerson. Por favor aixa medicamentos reconciliados. Nuevos medicamentos: lisinopril 2.5 mg garrett tableta diaria toprolol xl 50 mg garrett tableta diaria flomax 0,4 mg garrett tableta dos veces al da Por favor, deje de plavix 75 mg al da Por favor, deje de atenolol 25 mg al da Deje de tomarlo si est tomando amlodipine diariamente si lo estaba tomando. Reanude todos los dems medicamentos mali en la lista de medicamentos conciliados. Por favor, elzbieta un seguimiento con el mdico de cabecera en 4-5 [place] para repetir BMP. Por favor, seguimiento con la urologa en 1 semana. Por favor elzbieta un seguimiento de la nefrologa en 1 semana. Si alguno de los sntomas regresa, por favor regrese a la instalacin de emergencia ms cercana. Referrals: Bonifacio Howard MD [Staff Provider] - Pal Bonds MD [Staff Provider] - Evangelist More MD [Staff Provider] - Clinical Quality Measures - CQM - Heart Failure Ejection Fraction: 40 % or Greater Left Ventricular Function to be assessed after discharge: Yes CELSO Inhibitor Prescribed: Yes Beta-Carlos Prescribed: Metoprolol Succinate Angiotensin II Receptor Carlos Prescribed: No Contraindication/Reason for not providing: aci prescribed <Surendra Wilkerson - Last Filed: 12/16/18 18:11> Provider - Provider Date of Admission: 12/13/18 14:19 Attending physician: Surendra Wilkerson MD Consults: 12/13/18 15:10 Urology Consult Routine Comment: Consulting Provider: Evangelist More Consulting Physician: Evangelist More Reason for Consult: obstructive uropathy, CR improving from 10/3012/13/18 15:38 Cardiology Consult Routine Comment: Consulting Provider: Bonifacio Howard Consulting Physician: Bonifacio Howard Reason for Consult: BELTRE, Hx of AorticStenosis, hx of CABG Nephrology Consult Routine Comment: Consulting Provider: Pal Bonds Consulting Physician: Pal Bonds Reason for Consult: Obstructive Uropathy, ARF Hospital Course - Lab Results Lab Results: Micro Results 12/13/18 21:37 Urine,Clean Catch Urine Culture - Final No Growth (<1,000 CFU/ML) Most Recent Lab Values WBC 6.5 K/uL (4.8-10.8) 12/15/18 06:30 RBC 2.60 Mil/uL (4.40-5.90) L 12/15/18 06:30 Hgb 8.4 g/dL (12.0-18.0) L 12/15/18 06:30 Hct 25.3 % (35.0-51.0) L 12/15/18 06:30 MCV 97.5 fL (80.0-94.0) H 12/15/18 06:30 MCH 32.1 pg (27.0-31.0) H 12/15/18 06:30 MCHC 33.0 g/dL (33.0-37.0) 12/15/18 06:30 RDW 14.6 % (11.5-14.5) H 12/15/18 06:30 Plt Count 209 K/uL (130-400) 12/15/18 06:30 MPV 8.9 fL (7.2-11.7) 12/15/18 06:30 Neut % (Auto) 70.8 % (50.0-75.0) 12/15/18 06:30 Lymph % (Auto) 20.4 % (20.0-40.0) 12/15/18 06:30 Calloway % (Auto) 6.9 % (0.0-10.0) 12/15/18 06:30 Eos % (Auto) 1.3 % (0.0-4.0) 12/15/18 06:30 Baso % (Auto) 0.6 % (0.0-2.0) 12/15/18 06:30 Neut # (Auto) 4.6 K/uL (1.8-7.0) 12/15/18 06:30 Lymph # (Auto) 1.3 K/uL (1.0-4.3) 12/15/18 06:30 Calloway # (Auto) 0.4 K/uL (0.0-0.8) 12/15/18 06:30 Eos # (Auto) 0.1 K/uL (0.0-0.7) 12/15/18 06:30 Baso # (Auto) 0.0 K/uL (0.0-0.2) 12/15/18 06:30 APTT 34 SECONDS (21-34) 12/14/18 11:44 D-Dimer, Quantitative 590 ng/mlDDU (0-243) H 12/13/18 10:59 Sodium 137 mmol/L (132-148) 12/15/18 06:30 Potassium 3.9 mmol/L (3.6-5.2) 12/15/18 06:30 Chloride 107 mmol/L (98-107) 12/15/18 06:30 Carbon Dioxide 24 mmol/L (22-30) 12/15/18 06:30 Anion Gap 10 (10-20) 12/15/18 06:30 BUN 29 mg/dL (9-20) H 12/15/18 06:30 Creatinine 2.7 mg/dL (0.8-1.5) H 12/15/18 06:30 Est GFR ( Amer) 28 12/15/18 06:30 Est GFR (Non-Af Amer) 23 12/15/18 06:30 Random Glucose 100 mg/dL (75-110) 12/15/18 06:30 Calcium 8.9 mg/dl (8.6-10.4) 12/15/18 06:30 Phosphorus 4.6 mg/dL (2.5-4.5) H 12/15/18 06:30 Magnesium 1.7 mg/dL (1.6-2.3) 12/15/18 06:30 Iron 46 ug/dL (49-181) L 12/14/18 08:34 TIBC 223 ug/dL (250-450) L 12/14/18 08:34 % Saturation 21 (20-55) 12/14/18 08:34 Ferritin 244.0 ng/mL 12/14/18 08:34 Total Bilirubin 0.3 mg/dL (0.2-1.3) 12/15/18 06:30 AST 23 U/L (17-59) 12/15/18 06:30 ALT 12 U/L (21-72) L D 12/15/18 06:30 Alkaline Phosphatase 52 U/L (38-126) 12/15/18 06:30 Total Creatine Kinase 240 U/L (55-170) H 12/13/18 10:59 CK-MB (Mass) 2.58 ng/mL (0.0-3.38) 12/13/18 10:59 Troponin I < 0.0120 ng/mL (0.00-0.120) 12/13/18 10:59 NT-Pro-B Natriuret Pep 3810 pg/mL (0-900) H 12/13/18 10:59 Total Protein 6.3 g/dL (6.3-8.3) 12/15/18 06:30 Albumin 3.7 g/dL (3.5-5.0) 12/15/18 06:30 Globulin 2.6 gm/dL (2.2-3.9) 12/15/18 06:30 Albumin/Globulin Ratio 1.5 (1.0-2.1) 12/15/18 06:30 Prostate Specific Ag 418 ng/mL (0.00-4.0) H 12/15/18 06:30 25-OH Vitamin D Total 52.3 NG/ML (30.0-100.0) 12/14/18 08:34 Calcium (PTH Intact) 8.5 mg/dL (8.6-10.3) L 12/14/18 08:34 PTH w/Ion &Tot Calcium 120 pg/mL (14-64) H 12/14/18 08:34 Urine Color Yellow (YELLOW) 12/13/18 21:37 Urine Clarity Clear (Clear) 12/13/18 21:37 Urine pH 5.0 (5.0-8.0) 12/13/18 21:37 Ur Specific Schaller 1.009 (1.003-1.030) 12/13/18 21:37 Urine Protein Negative mg/dL (NEGATIVE) 12/13/18 21:37 Urine Glucose (UA) Normal mg/dL (Normal) 12/13/18 21:37 Urine Ketones Negative mg/dL (NEGATIVE) 12/13/18 21:37 Urine Blood Negative (NEGATIVE) 12/13/18 21:37 Urine Nitrate Negative (NEGATIVE) 12/13/18 21:37 Urine Bilirubin Negative (NEGATIVE) 12/13/18 21:37 Urine Urobilinogen Normal mg/dL (0.2-1.0) 12/13/18 21:37 Ur Leukocyte Esterase 2+ Elizabeth/uL (Negative) H 12/13/18 21:37 Urine WBC (Auto) 13 /hpf (0-5) H 12/13/18 21:37 Urine RBC (Auto) 1 /hpf (0-3) 12/13/18 21:37 Hyaline Casts 0-2 /lpf (0-2) 12/13/18 21:37 Attending/Attestation - Attestation I have personally seen and examined this patient.: Yes I have fully participated in the care of the patient.: Yes I have reviewed all pertinent clinical information, including history, physical exam and plan: Yes
[2018-12-16] MEDS ORDERED: Metoprolol Succinate 50 mg XL Tab PO SCH (10:00)
--- NOTE | 2018-12-16 12:08 | CARD ---
APPROVED REPORT Date of service: 12/15/2018 Protocol: MODPHILIPUCE Test Type: TREAD MILL TEST Attending Physician: Dr. ENRIQUEZ Technologist: TOSHIA Test Indications: SOB Target HR: 139 bpm Resting ECG: paced Resting Heart Rate: 67 bpm Resting Blood Pressure: 132/80mmHg submaximum (85%): 118 bpm TEST SUMMARY PRETESTWARM-[id number]. EXERCISESTAGE [id number]. [id number]. POST EXERCISE Reason for Termination: Leg discomfort Target HR: NoMax HR: 121 bpm91% of Maximum Predicted HR: 139 bpm Exercise duration: 1 Stage02:55 min:secExercise capacity: 2.3METs Max Blood Pressure: 144/80mmHg Blood Pressure response to exercise: normal resting BP - appropriate response Heart Rate response to exercise: appropriate Chest Pain: NononeAngina index: 0 Arrhythmia: Nonone ST Change: NononeDeviation: 0 mm INTERPRETATION Stress EKG Conclusion: Paced rhythm. Moderately decreased exercise tolerance. 83 year old achieved 97% of MPHR. Stopped treadmill due to leg pain radiating down the spine. No CP or SOB at 2.9 METS of activity.
--- NOTE | 2018-12-16 12:11 | CP.PCM.PN ---
Subjective - Date & Time of Evaluation Date of Evaluation: 12/15/18 Time of Evaluation: 09:10 - Subjective Subjective: seen and evaluated in exercise stress lab at time of stress testing no cp sob improved Objective - Vital Signs/Intake and Output Vital Signs (last 24 hours): Temp Pulse Resp BP Pulse Ox 98.4 F 80 18 108/70 90 L 12/15/18 16:12 12/15/18 16:26 12/15/18 16:12 12/15/18 16:12 12/15/18 19:01 - Labs Labs: 12/15/18 06:30 12/15/18 06:30 APTT 34 SECONDS (21-34) 12/14/18 11:44 - Constitutional Appears: Well - Head Exam Head Exam: ATRAUMATIC, NORMAL INSPECTION, NORMOCEPHALIC - Eye Exam Eye Exam: EOMI, Normal appearance, PERRL Pupil Exam: NORMAL ACCOMODATION, PERRL - ENT Exam ENT Exam: Mucous Membranes Moist, Normal Exam - Neck Exam Neck Exam: Full ROM, Normal Inspection. absent: Lymphadenopathy - Respiratory Exam Respiratory Exam: Clear to Ausculation Bilateral, NORMAL BREATHING PATTERN - Cardiovascular Exam Cardiovascular Exam: REGULAR RHYTHM, RRR, +S1, +S2, Murmur - GI/Abdominal Exam GI & Abdominal Exam: Soft, Normal Bowel Sounds. absent: Tenderness - Extremities Exam Extremities Exam: Full ROM, Normal Capillary Refill, Normal Inspection. absent: Joint Swelling, Pedal Edema - Back Exam Back Exam: NORMAL INSPECTION - Neurological Exam Neurological Exam: Alert, Awake, CN II-XII Intact, Normal Gait, Oriented x3 - Psychiatric Exam Psychiatric exam: Normal Affect, Normal Mood - Skin Skin Exam: Dry, Intact, Normal Color, Warm Assessment and Plan (1) CHF exacerbation Assessment & Plan: 2' to URI combined with responded to IV lasix stable to dc home later today f/u in 2 weeks chg atenolol to toprol cont asa cont lasix cont low dose acei Status: Acute (2) Dyspnea Status: Acute (3) Renal insufficiency Status: Acute
== END 2018-12-15 19:26 | disposition home or self-care (01) ==
LOC: C.ER 10:02 → C.9E 14:19 → C.5S 14:57
PROVIDERS: ADMIT Internal Medicine; ATTEND Internal Medicine
DX: I13.0 Hypertensive heart and chronic kidney disease with heart failure and stage 1 through stage 4 chronic kidney disease, or unspecified chronic kidney disease (principal); I50.43 Acute on chronic combined systolic (congestive) and diastolic (congestive) heart failure; E03.9 Hypothyroidism, unspecified; N18.9 Chronic kidney disease, unspecified; N17.9 Acute kidney failure, unspecified; Z87.891 Personal history of nicotine dependence; D63.1 Anemia in chronic kidney disease; I25.10 Atherosclerotic heart disease of native coronary artery without angina pectoris; I35.0 Nonrheumatic aortic (valve) stenosis; J44.1 Chronic obstructive pulmonary disease with (acute) exacerbation; J06.9 Acute upper respiratory infection, unspecified; N13.30 Unspecified hydronephrosis; N40.1 Benign prostatic hyperplasia with lower urinary tract symptoms; Z95.1 Presence of aortocoronary bypass graft; T82.857A Stenosis of other cardiac prosthetic devices, implants and grafts, initial encounter; Y83.8 Other surgical procedures as the cause of abnormal reaction of the patient, or of later complication, without mention of misadventure at the time of the procedure; J44.0 Chronic obstructive pulmonary disease with (acute) lower respiratory infection; N13.8 Other obstructive and reflux uropathy
CPT/HCPCS: 36415; 71045; 74176; 76770; 76856; 78582; 78708; 80053; 81001; 82306; 82550; 82553; 82728; 83540; 83550; 83735; 83880; 84100; 84153; 84484; 85025; 85378; 85730; 87086; 93005; 93017; 93306; 94640; 96365; 96366; 96372; 96375; 96376; 99285; A9540; A9558; C9113; G0378; J1644; J1940; J2916; J2920; Q4081

== ENCOUNTER 2018-12-29 08:54 | Inpatient (IN) | payer MEDICARE, OTHER ==
[2018-12-29 08:54] VITALS: BMI 29.7
[2018-12-29 09:44] LABS: BASO % 0.6 % (0.0-2.0); EOS # 0.1 K/uL (0.0-0.7); HEMOGLOBIN 9.3 g/dL (12.0-18.0); LYMPH # 1.1 K/uL (1.0-4.3); LYMPH % 18.7 % (20.0-40.0); MEAN CELL VOLUME 96.7 fL (80.0-94.0); MEAN CORPUSCULAR HEMOGLOBIN 32.8 pg (27.0-31.0); MEAN CORPUSCULAR HGB CONC 33.9 g/dL (33.0-37.0); MONO # 0.3 K/uL (0.0-0.8); MONO % 5.9 % (0.0-10.0); NEUT # 4.3 K/uL (1.8-7.0); NEUT % 72.8 % (50.0-75.0); RBC 2.84 Mil/uL (4.40-5.90); RED CELL DISTRIBUTION WIDTH 14.4 % (11.5-14.5); WHITE BLOOD COUNT 5.9 K/uL (4.8-10.8)
--- NOTE | 2018-12-29 09:48 | C.PDOC ---
History Of Present Illness 83 y/o male pt with hx of aortic stenosis, CHF, COPD, HTN, CAD s/p CABG and hypothyroidism presents to the ER by EMS c/o SOB for several days. Associated sxs include weakness, non-productive cough and leg edema. Pt denies chest pain, palpitations, fever, abdominal pain, nausea/vomiting/diarrhea. Time Seen by Provider: 12/29/18 08:57 Chief Complaint (Nursing): Shortness Of Breath History Per: Patient History/Exam Limitations: no limitations Onset/Duration Of Symptoms: Days Current Symptoms Are (Timing): Still Present Current Respiratory Medications: See Home Med List Past Medical History Reviewed: Historical Data, Nursing Documentation, Vital Signs Vital Signs: Last Vital Signs Temp 97.7 F 12/29/18 09:05 Pulse 75 12/29/18 09:05 Resp 19 12/29/18 09:19 BP 140/73 12/29/18 09:05 Pulse Ox 97 12/29/18 09:19 - Medical History PMH: Asthma, Bronchitis, CHF, COPD, HTN, Hypothyroidism Surgical History: CABG, Pacemaker Family History: States: No Known Family Hx - Social History Hx Alcohol Use: No Hx Substance Use: No - Immunization History Hx Tetanus Toxoid Vaccination: No Hx Influenza Vaccination: No Hx Pneumococcal Vaccination: No Review Of Systems Constitutional: Positive for: Weakness (generalized). Negative for: Fever Cardiovascular: Negative for: Chest Pain, Palpitations Respiratory: Positive for: Cough (non-productive ), Shortness of Breath Gastrointestinal: Negative for: Nausea, Vomiting, Abdominal Pain, Diarrhea Genitourinary: Negative for: Dysuria Musculoskeletal: Positive for: Other (leg edema ) Skin: Negative for: Rash Neurological: Negative for: Weakness, Numbness, Headache, Dizziness Physical Exam - Physical Exam Appears: Well, Non-toxic, No Acute Distress Skin: Normal Color, Warm, Dry, No Rash Head: Normacephalic Eye(s): bilateral: Normal Inspection, PERRL, EOMI Oral Mucosa: Moist Chest: Other (pacemaker left upper chest; midline sternotomy scar) Cardiovascular: Rhythm Regular, Murmur (systolic; 3/6) Respiratory: No Accessory Muscle Use, Rales (at b/l bases ), No Rhonchi, No Wheezing, Other (mild conversational dyspnea ) Gastrointestinal/Abdominal: Normal Exam, Bowel Sounds, Soft, No Tenderness Extremity: Normal ROM (x4), No Tenderness, Pedal Edema (+2pitting edema B/L LEs), No Calf Tenderness, No Deformity, No Swelling Pulses: Left Dorsalis Pedis: Normal, Right Dorsalis Pedis: Normal Neurological/Psych: Oriented x3, Normal Motor, Normal Sensation Gait: Steady ED Course And Treatment - Laboratory Results Result Diagrams: 12/30/18 15:14 12/30/18 07:06 ECG: Interpreted By Me, Viewed By Me (AV paced rhythm 76 bpm, left axis deviation no acute ST changes) ECG Interpretation: No Changes From Prior (12/13/2018) Interpretation Of ECG: ventricular pace rhythm; LAD O2 Sat by Pulse Oximetry: 97 (RA) Pulse Ox Interpretation: Normal - Radiology CXR: Interpreted by Me, Viewed By Me ((+) pulmonary vascular congestion ) Progress Note: Blood work, CXR, EKG ordered and reviewed. Patient given IV Lasix and PO Kdur. Reassessment Condition: Improved - Physician Consult Information Physician Contacted: Surendra Wilkerson Outcome Of Conversation: Discussed patient with hospitalist, agrees with admission for dyspnea, fluid overload, acute CHF exacerbation. Disposition - Disposition Disposition: HOSPITALIZED Disposition Time: 11:03 Condition: STABLE - Clinical Impression Clinical Impression: Fluid overload, Dyspnea, CHF exacerbation Decision To Admit - Pt Status Changed To: Hospital Disposition Of: Observation - . Bed Request Type: Telemetry Admitting Physician: Surendra Wilkerson Patient Diagnosis: Dyspnea, CHF exacerbation, Fluid overload
[2018-12-29 09:51] LABS: INR 1.1; PROTHROMBIN TIME 11.8 SECONDS (9.7-12.2)
[2018-12-29 09:54] LABS: SQUAMOUS EPITHIAL < 1 /hpf (0-5); URINE BILIRUBIN NEGATIVE (NEGATIVE); URINE BLOOD NEGATIVE (NEGATIVE); URINE CLARITY Clear (Clear); URINE COLOR Yellow (YELLOW); URINE GLUCOSE (UA) NORMAL (Normal); URINE LEUKOCYTE ESTERASE 2+ Leu/uL (Negative); URINE PROTEIN NEGATIVE (NEGATIVE); URINE UROBILINOGEN NORMAL mg/dL (0.2-1.0)
[2018-12-29 09:56] LABS: ALB/GLOB RATIO 1.6 (1.0-2.1); ALBUMIN 3.9 g/dL (3.5-5.0); ALT/SGPT 20 U/L (21-72); AST/SGOT 18 U/L (17-59); BLOOD UREA NITROGEN 29 mg/dL (9-20); CALCIUM 9.2 mg/dl (8.6-10.4); GFR NON-AFRICAN AMERICAN 22
[2018-12-29 10:08] LABS: B-TYPE NATRIURETIC PEPTIDE 10100 pg/mL (0-900); CK-MB 1.89 ng/mL (0.0-3.38)
[2018-12-29] MEDS ORDERED: Potassium Chloride 20 mEq ER Tab PO STA (10:10)
--- NOTE | 2018-12-29 10:14 | RAD ---
Date of service: 12/29/2018 PROCEDURE: CHEST RADIOGRAPH, 1 VIEW HISTORY: dyspnea COMPARISON: 12/13/2018. FINDINGS: LUNGS: The lungs are well inflated. There is severe pulmonary venous congestion and mild interstitial pulmonary edema. PLEURA: Small bilateral effusions. No pneumothorax. CARDIOVASCULAR: Moderate cardiomegaly with prominent central vasculature. Status post CABG. No aortic atherosclerotic calcifications present. OSSEOUS STRUCTURES: Within normal limits for the patient's age. VISUALIZED UPPER ABDOMEN: Normal. OTHER FINDINGS: None. IMPRESSION: No change in moderate congestive heart failure.
[2018-12-29] MEDS ORDERED: Potassium Chloride 20 mEq ER Tab PO ONE (10:28)
[2018-12-29] MEDS ORDERED: Tiotropium 18 mcg Cap For Inhalation IH SCH (12:30)
--- NOTE | 2018-12-29 12:39 | CP.PCM.HP ---
<Ebenezer Ortega M - Last Filed: 12/29/18 20:21> History of Present Illness - History of Present Illness History of Present Illness: H&P for hospitalist Dr. Wilkerson. CC: SOB HPI: 83M with a past medical history of obstructive uropathy (patient refusing gardner on previous admission), COPD, CHF w/ reduced EF 45%, CABG, pacemaker, CKD, placement presents to ED for SOB. Pt states after discharge approximately 2 weeks prior he started developing progressive SOB associated with productive (white phlegm) cough. Patient reports being complaint with medications; however, having progressiveness of symptoms. Patient also reports bilateral lower extremity swelling at that time. Furthermore, patient reports having no bowel movement for the past 2 days; however, still producing urine. On previous admission, patient had obstructive uropathy and worsening renal function; however, patient persistently refused gardner insertion for further workup. ROS: Patient denies fevers, chills, headaches, vision changes, chest pain, abdominal pain, diarrhea, dysuira. PMD: Preston Santos PMhx: obstructive uropathy (patient refusing gardner on previous admission), COPD, CHF w/ reduced EF 45%, CABG, pacemaker, CKD Meds: lasix 20 mg PO daily, colace 100 mg Po daily, Vitamin D3 100 units daily, ambiem 10 mg PO HS, Dutasteride 0.5 mg PO daily, rosuvastatin 40 mg PO daily, parcalcitol 1 mcg PO q2d, levothyroxine 25 mcg PO daily, Spiriva 18 mcg IH, Omeprazole 40 mg PO daily, Symbicort 2 BID, aspirin 81 mg daily, albuterol PRN, tramadol 50 mg PO q8H, flomax 0.4 mg Po BID, pyridium 200 mg PO TID, meotprolol succinate 50 mg po dialy, lisinopril 2.5 mg PO daily Allergies: Denies PSx: CABG, Microwave Thermotherapy SocHx: 3ppd smoker for 60yrs, denies etoh or drugs FH: Denies Present on Admission - Present on Admission Any Indicators Present on Admission: No History of DVT/PE: No History of Uncontrolled Diabetes: No Urinary Catheter: No Decubitus Ulcer Present: No Review of Systems - Constitutional Constitutional: absent: Chills, Fever - EENT Eyes: absent: Blurred Vision, Change in Vision - Cardiovascular Cardiovascular: Dyspnea. absent: Chest Pain, Chest Pain at Rest - Respiratory Respiratory: Cough, Dyspnea, Dyspnea on Exertion, Excessive Mucous Production - Gastrointestinal Gastrointestinal: Constipation. absent: Bloating, Coffee Ground Emesis, Vomiting - Genitourinary Genitourinary: Difficulty Urinating, Voiding Freq/Small Amts. absent: Dysuria, Flank Pain, Urinary Incontinence, Urinary Frequency - Musculoskeletal Musculoskeletal: absent: Arthralgias, Atrophy, Back Pain - Integumentary Integumentary: absent: Alopecia - Neurological Neurological: absent: Abnormal Gait, Abnormal Speech - Psychiatric Psychiatric: absent: Confusion, Depression - Endocrine Endocrine: absent: Deepening of Voice, Excessive Sweating - Hematologic/Lymphatic Hematologic: absent: As Per HPI, Easy Bleeding, Easy Bruising Past Patient History - Past Social History Smoking Status: Former Smoker - CARDIAC Hx Congestive Heart Failure: Yes Hx Hypertension: Yes Hx Pacemaker: Yes - PULMONARY Hx Asthma: Yes Hx Bronchitis: Yes Hx Chronic Obstructive Pulmonary Disease (COPD): Yes - ENDOCRINE/METABOLIC Hx Hypothyroidism: Yes - PSYCHIATRIC Hx Substance Use: No - SURGICAL HISTORY Hx Coronary Artery Bypass Graft: Yes - ANESTHESIA Hx Anesthesia: Yes Hx Anesthesia Reactions: No Hx Malignant Hyperthermia: No Meds Allergies/Adverse Reactions: Allergies Allergy/AdvReac Type Severity Reaction Status Date / Time No Known Allergies Allergy Verified 12/29/18 09:10 Physical Exam - Constitutional Appears: Non-toxic, In Acute Distress - Head Exam Head Exam: NORMAL INSPECTION - Eye Exam Eye Exam: EOMI, Normal appearance, PERRL - ENT Exam ENT Exam: Mucous Membranes Moist - Respiratory Exam Respiratory Exam: Decreased Breath Sounds, Rales Additional comments: rales R> L - Cardiovascular Exam Cardiovascular Exam: +S1, +S2, Systolic Murmur Additional comments: holo systolic, confirmed aortic stenosis from previous Echo - GI/Abdominal Exam GI & Abdominal Exam: Distended, Normal Bowel Sounds Additional comments: no fluid shift, dullness to percussion inferior > superior - Extremities Exam Extremities exam: Positive for: pedal edema. Negative for: calf tenderness Additional comments: 1+ pitting edema, L > R - Back Exam Back exam: absent: CVA tenderness (L), CVA tenderness (R) - Neurological Exam Neurological exam: Alert, Oriented x3 - Psychiatric Exam Psychiatric exam: Normal Affect - Skin Skin Exam: Dry, Intact, Normal Color, Warm Results - Vital Signs Recent Vital Signs: Last Vital Signs Temp 97.7 F 12/29/18 09:05 Pulse 86 12/29/18 12:20 Resp 21 12/29/18 12:20 BP 143/65 12/29/18 12:20 Pulse Ox 96 12/29/18 12:20 - Labs Result Diagrams: 12/29/18 09:15 12/29/18 09:15 Labs: Laboratory Results - last 24 hr 12/29/18 12/29/18 12/29/18 09:15 09:15 09:15 WBC 5.9 RBC 2.84 L Hgb 9.3 L Hct 27.5 L MCV 96.7 H MCH 32.8 H MCHC 33.9 RDW 14.4 Plt Count 206 MPV 9.0 Neut % (Auto) 72.8 Lymph % (Auto) 18.7 L [place] % (Auto) 5.9 Eos % (Auto) 2.0 Baso % (Auto) 0.6 Neut # (Auto) 4.3 Lymph # (Auto) 1.1 [place] # (Auto) 0.3 Eos # (Auto) 0.1 Baso # (Auto) 0.0 PT 11.8 INR 1.1 APTT 35.0 H Sodium 146 Potassium 3.3 L Chloride 105 Carbon Dioxide 26 Anion Gap 18 BUN 29 H Creatinine 2.8 H Est GFR ( Amer) 26 Est GFR (Non-Af Amer) 22 Random Glucose 126 H D Calcium 9.2 Total Bilirubin 0.3 AST 18 ALT 20 L D Alkaline Phosphatase 55 Total Creatine Kinase 166 CK-MB (Mass) 1.89 Troponin I < 0.0120 NT-Pro-B Natriuret Pep 90207 H Total Protein 6.3 Albumin 3.9 Globulin 2.4 Albumin/Globulin Ratio 1.6 Urine Color Urine Clarity Urine pH Ur Specific [place] Urine Protein Urine Glucose (UA) Urine Ketones Urine Blood Urine Nitrate Urine Bilirubin Urine Urobilinogen Ur Leukocyte Esterase Urine WBC (Auto) Urine RBC (Auto) Ur Squamous Epith Cells 12/29/18 09:45 WBC RBC Hgb Hct MCV MCH MCHC RDW Plt Count MPV Neut % (Auto) Lymph % (Auto) [place] % (Auto) Eos % (Auto) Baso % (Auto) Neut # (Auto) Lymph # (Auto) [place] # (Auto) Eos # (Auto) Baso # (Auto) PT INR APTT Sodium Potassium Chloride Carbon Dioxide Anion Gap BUN Creatinine Est GFR ( Amer) Est GFR (Non-Af Amer) Random Glucose Calcium Total Bilirubin AST ALT Alkaline Phosphatase Total Creatine Kinase CK-MB (Mass) Troponin I NT-Pro-B Natriuret Pep Total Protein Albumin Globulin Albumin/Globulin Ratio Urine Color Yellow Urine Clarity Clear Urine pH 6.0 Ur Specific [place] 1.012 Urine Protein Negative Urine Glucose (UA) Normal Urine Ketones Negative Urine Blood Negative Urine Nitrate Negative Urine Bilirubin Negative Urine Urobilinogen Normal Ur Leukocyte Esterase 2+ H Urine WBC (Auto) 14 H Urine RBC (Auto) 1 Ur Squamous Epith Cells < 1 Assessment & Plan - Assessment and Plan (Free Text) Plan: Acute on chronic systolic heart failure - ECHO 12/13/18 - EF of 40-45%; systolic fxn moderately impaired, moderate aortic stenosis - BNP on admission 64231y (previously 3000s) - CXRAY: vascular congestion - Lasix 40 mg in ED given, c/w lasix 20 mg IVP daily - strict I/O's - daily weights - fluid restrict - c/w home medication metoprolol xl 50 mg daily Partial obstructive uropathy BPH UTI - 14 wbc, leuko esterase 2+ - bladder scan post void >600 cc urine - renal ultrasound: moderate hydronephrosis, distended bladder, prostate volume 75 ml - insert gardner - F/u UC - F/u urology, Dr. Chapito de la cruz - c/w home medication flomax 0.4 mg PO BID - start ceftriaxone 1gm daily Acute on chronic renal failure - Cr 2.8, GFR 20s, previously similar numbers - renal ultrasound: moderate hydronephrosis, distended bladder, prostate volume 75 ml - f/u nephro, Dr. Cammie de la cruz History of COPD - c/w home medications spiriva - start solu-medrol 40 mg IVP daily - duonebs Q6H PRN History of Coronary Artery Disease History of Aortic Stenosis - c/w aspirin 81 mg daily, metoprolol succinate 50 mg Po daily, rosuvastain 40 mg daily - F/u cardio, Dr. Lee de la cruz History of hypothyrodism - c/w levothyroxine 25 mcg daily Constipation - last reported bowel movement 2 days prior - c/w home medication colace 100 mg daily for now PPx - DVT: heparin 5000 units daily - GI: HHD, pepcid 20 mg daily <Surendra Wilkerson - Last Filed: 12/30/18 17:28> Results - Vital Signs Recent Vital Signs: Last Vital Signs Temp 98.4 F 12/30/18 15:10 Pulse 64 12/30/18 17:15 Resp 20 12/30/18 15:10 BP 116/73 12/30/18 15:10 Pulse Ox 97 12/30/18 17:15 - Labs Result Diagrams: 12/30/18 15:14 12/30/18 07:06 Labs: Laboratory Results - last 24 hr 12/30/18 12/30/18 07:06 15:14 WBC 9.6 D RBC 3.11 L Hgb 10.1 L Hct 30.3 L MCV 97.6 H MCH 32.5 H MCHC 33.4 RDW 14.6 H Plt Count 234 MPV 9.3 Neut % (Auto) 90.7 H Lymph % (Auto) 6.3 L [place] % (Auto) 2.1 Eos % (Auto) 0.5 Baso % (Auto) 0.4 Neut # (Auto) 8.7 H Lymph # (Auto) 0.6 L [place] # (Auto) 0.2 Eos # (Auto) 0.1 Baso # (Auto) 0.0 Neutrophils % (Manual) 91 H Band Neutrophils % 1 Lymphocytes % (Manual) 6 L Monocytes % (Manual) 2 Platelet Estimate Normal Anisocytosis (manual) Slight Sodium 139 Potassium 3.6 Chloride 107 Carbon Dioxide 26 Anion Gap 10 BUN 31 H Creatinine 2.8 H Est GFR ( Amer) 26 Est GFR (Non-Af Amer) 22 Random Glucose 107 Calcium 9.3 Phosphorus 4.4 Magnesium 1.9 Total Bilirubin 0.5 AST 24 ALT 19 L Alkaline Phosphatase 53 Total Protein 6.5 Albumin 3.9 Globulin 2.6 Albumin/Globulin Ratio 1.5 Attending/Attestation - Attestation I have personally seen and examined this patient.: Yes I have fully participated in the care of the patient.: Yes I have reviewed all pertinent clinical information: Yes Notes (Text): Patient was seen and examined with the resident Spoke to his and the patient in the ER came with shortness of breath and congestion 1.Acute on chronic systolic heart failure 2.Retention of urine,BPH,chronic obstructive uropathy and acute on chronic renal failure Pt refuses Gardner cath,prostectomy was not done due to heart issues ? 3.Aortic stenosis(moderate),Aortic valve replacement in ,PPM in 2017 4.COPD .He was a smoker Bladder scan shows retension of urine Patient finally agrees to have faley in the evening,faley cath placed after spoke to Dr laney Story continue IV lasix and follow camp dishwasher recommendation we will add solumedrol monitor urine out put
--- NOTE | 2018-12-29 12:52 | CP.PCM.CON ---
History of Present Illness - History of Present Illness History of Present Illness: Consultation for evaluation of CHF / HPI: Domingo is a pleasant 83-year-old male with past medical history significant for aortic valve replacement [place] [address] 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 Review of Systems - Review of Systems Systems not reviewed;Unavailable: Acuity of Condition - Constitutional Constitutional: As Per HPI - EENT Eyes: As Per HPI Ears: As Per HPI Nose/Mouth/Throat: As Per HPI - Cardiovascular Cardiovascular: As Per HPI - Respiratory Respiratory: As Per HPI - Gastrointestinal Gastrointestinal: As Per HPI - Genitourinary Genitourinary: As Per HPI - Reproductive: Male Reproductive:Male: As Per HPI - Musculoskeletal Musculoskeletal: As Per HPI - Integumentary Integumentary: As Per HPI - Neurological Neurological: As Per HPI - Psychiatric Psychiatric: As Per HPI - Endocrine Endocrine: As Per HPI - Hematologic/Lymphatic Hematologic: As Per HPI Past Patient History - Past Social History Smoking Status: Former Smoker - CARDIAC Hx Congestive Heart Failure: Yes Hx Hypertension: Yes Hx Pacemaker: Yes - PULMONARY Hx Asthma: Yes Hx Bronchitis: Yes Hx Chronic Obstructive Pulmonary Disease (COPD): Yes - ENDOCRINE/METABOLIC Hx Hypothyroidism: Yes - PSYCHIATRIC Hx Substance Use: No - SURGICAL HISTORY Hx Coronary Artery Bypass Graft: Yes - ANESTHESIA Hx Anesthesia: Yes Hx Anesthesia Reactions: No Hx Malignant Hyperthermia: No Meds Allergies/Adverse Reactions: Allergies Allergy/AdvReac Type Severity Reaction Status Date / Time No Known Allergies Allergy Verified 12/29/18 09:10 - Medications Medications: Current Medications Aspirin (Ecotrin) 81 mg PO DAILY NAHOM[facility] Docusate Sodium (Colace) 100 mg PO DAILY [facility] Famotidine (Pepcid) 20 mg IVP DAILY [facility] Furosemide (Lasix) 20 mg IVP DAILY [facility] Heparin Sodium (Porcine) (Heparin) 5,000 units SC Q8 NAHOMY Home Med (Budesonide/Formoterol Fumarate [Symbicort 160-4.5 Mcg Inhaler]) 2 aer IH BID NAHOMY Home Med (Dutasteride [Dutasteride]) 0.5 mg PO DAILY [facility]HOMY Home Med (Omeprazole [Omeprazole]) 40 mg PO DAILY NAHOMY Home Med (Rosuvastatin Calcium [Rosuvastatin Calcium]) 40 mg PO DAILY REPLACED BY [facility] Ceftriaxone Sodium (Rocephin Iv 1 Gm Duplex) 50 mls @ 200 mls/hr IVPB ONCE ONE; Protocol Stop: 12/29/18 12:47 Levothyroxine Sodium (Synthroid) 25 mcg PO DAILY REPLACED BY [facility] Methylprednisolone (Solu-Medrol) 40 mg IVP DAILY REPLACED BY [facility] Metoprolol Succinate (Toprol Xl) 50 mg PO DAILY REPLACED BY [facility] Tamsulosin HCl (Flomax) 0.4 mg PO BID REPLACED BY [facility] Tiotropium [place]ro[place] (Spiriva) 18 mcg IH DAILY REPLACED BY [facility] Tiotropium [place] (Spiriva Inhalation Handihaler Device) 1 inhaler INH ONCE ONE Stop: 12/29/18 12:26 Physical Exam - Constitutional Appears: Well - Head Exam Head Exam: ATRAUMATIC, NORMAL INSPECTION, NORMOCEPHALIC - Eye Exam Eye Exam: EOMI, Normal appearance, PERRL Pupil Exam: NORMAL ACCOMODATION, PERRL - ENT Exam ENT Exam: Mucous Membranes Moist, Normal Exam - Neck Exam Neck exam: Positive for: Normal Inspection - Respiratory Exam Respiratory Exam: Clear to Auscultation Bilateral, NORMAL BREATHING PATTERN - Cardiovascular Exam Cardiovascular Exam: REGULAR RHYTHM, RRR, +S1, +S2, Systolic Murmur - GI/Abdominal Exam GI & Abdominal Exam: Normal Bowel Sounds, Soft. absent: Tenderness - Extremities Exam Extremities exam: Positive for: normal inspection - Back Exam Back exam: NORMAL INSPECTION - Neurological Exam Neurological exam: Alert, CN II-XII Intact, Normal Gait, Oriented x3, Reflexes Normal - Psychiatric Exam Psychiatric exam: Normal Affect, Normal Mood - Skin Skin Exam: Dry, Intact, Normal Color, Warm Results - Vital Signs Recent Vital Signs: Last Vital Signs Temp 97.7 F 12/29/18 09:05 Pulse 86 12/29/18 12:20 Resp 21 12/29/18 12:20 BP 143/65 12/29/18 12:20 Pulse Ox 96 12/29/18 12:20 - Labs Result Diagrams: 12/29/18 09:15 12/30/18 07:06 Labs: Laboratory Results - last 24 hr 12/29/18 12/29/18 12/29/18 09:15 09:15 09:15 WBC 5.9 RBC 2.84 L Hgb 9.3 L Hct 27.5 L MCV 96.7 H MCH 32.8 H MCHC 33.9 RDW 14.4 Plt Count 206 MPV 9.0 Neut % (Auto) 72.8 Lymph % (Auto) 18.7 L [place] % (Auto) 5.9 Eos % (Auto) 2.0 Baso % (Auto) 0.6 Neut # (Auto) 4.3 Lymph # (Auto) 1.1 Will # (Auto) 0.3 Eos # (Auto) 0.1 Baso # (Auto) 0.0 PT 11.8 INR 1.1 APTT 35.0 H Sodium 146 Potassium 3.3 L Chloride 105 Carbon Dioxide 26 Anion Gap 18 BUN 29 H Creatinine 2.8 H Est GFR ( Amer) 26 Est GFR (Non-Af Amer) 22 Random Glucose 126 H D Calcium 9.2 Total Bilirubin 0.3 AST 18 ALT 20 L D Alkaline Phosphatase 55 Total Creatine Kinase 166 CK-MB (Mass) 1.89 Troponin I < 0.0120 NT-Pro-B Natriuret Pep 12486 H Total Protein 6.3 Albumin 3.9 Globulin 2.4 Albumin/Globulin Ratio 1.6 Urine Color Urine Clarity Urine pH Ur Specific [place] Urine Protein Urine Glucose (UA) Urine Ketones Urine Blood Urine Nitrate Urine Bilirubin Urine Urobilinogen Ur Leukocyte Esterase Urine WBC (Auto) Urine RBC (Auto) Ur Squamous Epith Cells 12/29/18 09:45 WBC RBC Hgb Hct MCV MCH MCHC RDW Plt Count MPV Neut % (Auto) Lymph % (Auto) [place] % (Auto) Eos % (Auto) Baso % (Auto) Neut # (Auto) Lymph # (Auto) Will # (Auto) Eos # (Auto) Baso # (Auto) PT INR APTT Sodium Potassium Chloride Carbon Dioxide Anion Gap BUN Creatinine Est GFR ( Amer) Est GFR (Non-Af Amer) Random Glucose Calcium Total Bilirubin AST ALT Alkaline Phosphatase Total Creatine Kinase CK-MB (Mass) Troponin I NT-Pro-B Natriuret Pep Total Protein Albumin Globulin Albumin/Globulin Ratio Urine Color Yellow Urine Clarity Clear Urine pH 6.0 Ur Specific [place] 1.012 Urine Protein Negative Urine Glucose (UA) Normal Urine Ketones Negative Urine Blood Negative Urine Nitrate Negative Urine Bilirubin Negative Urine Urobilinogen Normal Ur Leukocyte Esterase 2+ H Urine WBC (Auto) 14 H Urine RBC (Auto) 1 Ur Squamous Epith Cells < 1 Assessment & Plan (1) CHF exacerbation Assessment and Plan: IV lasix bb Status: Acute (2) Dyspnea Status: Acute (3) Renal insufficiency Status: Acute (4) Aortic stenosis Status: Acute
[2018-12-29] MEDS: MethylPREDNISolone 40 mg Vial IVP SCH (13:24)
[2018-12-29] MEDS ORDERED: cefTRIAXone IV 1 gm in Dextros 50 ML IVPB ONE (13:30)
--- NOTE | 2018-12-29 14:06 | CP.PCM.CON ---
<Flip Pickering - Last Filed: 12/29/18 15:16> History of Present Illness - History of Present Illness History of Present Illness: Nephro Consult Note for Dr. Bonds Service Flip Pickering DO, PGY-3 Consulted for: Worsening Cr in setting of urinary obstruction This is an 83yo M with PMH of COPD, CAD s/p CABG, Severe requiring TAVR, and BPH with obstructive uropathy recently s/p microwave thermopathy who presented shortness of breath for several days, worsening weakness, and LE edema. Nephro was consulted for worsening Cr in setting of urinary obstruction. Patient recently here with similar symptoms; was strongly encouraged to get a gardner placed to allow for decompression and improvement of renal function, while awaiting TAVR so he could undergo TURP for his urinary retention. He repeatedly refused, feeling that by end of admission, he was urinating well, and insisting that he didn't want a gardner again. This admission, patient reports swelling ("inflammation") of bilateral ankles and shins x2-3 days. Denies pain, but admits to shortness of breath. Believes there is fluid in his legs and lungs, but still seems not to understand that his obstructive uropathy makes this worse. Continues to refuse catheter, stating he had one for 4 months and it was miserable, so he never wants to have one again, regardless of the reason. He reports that he feels he is urinating enough, even though he was told that imaging shows his bladder and kidneys are dilated. Denies current chest pain, abdominal pain, cough, nausea, emesis, diarrhea, focal weakness, vision changes, or syncope/pre-syncope. Reports compliance with all home meds. 12-system ROS reviewed and negative, except as above. PMH: as above PSH: CABG, Microwave Thermotherapy Soc Hx: former smoker (2-3 ppd x 60 yrs), denies etoh or drugs FH: Not aware of any family hx PMD: Dr. Santos Review of Systems - Review of Systems All systems: reviewed and no additional remarkable complaints except (as per HPI) Past Patient History - Past Social History Smoking Status: Former Smoker - CARDIAC Hx Congestive Heart Failure: Yes Hx Hypertension: Yes Hx Pacemaker: Yes - PULMONARY Hx Asthma: Yes Hx Bronchitis: Yes Hx Chronic Obstructive Pulmonary Disease (COPD): Yes - ENDOCRINE/METABOLIC Hx Hypothyroidism: Yes - PSYCHIATRIC Hx Substance Use: No - SURGICAL HISTORY Hx Coronary Artery Bypass Graft: Yes - ANESTHESIA Hx Anesthesia: Yes Hx Anesthesia Reactions: No Hx Malignant Hyperthermia: No Meds Allergies/Adverse Reactions: Allergies Allergy/AdvReac Type Severity Reaction Status Date / Time No Known Allergies Allergy Verified 12/29/18 09:10 - Medications Medications: Current Medications Aspirin (Ecotrin) 81 mg PO DAILY [facility] Docusate Sodium (Colace) 100 mg PO DAILY [facility] Famotidine (Pepcid) 20 mg IVP DAILY [facility] Furosemide (Lasix) 20 mg IVP DAILY [facility] Heparin Sodium (Porcine) (Heparin) 5,000 units SC Q8 [facility] Last Admin: 12/29/18 13:25 Dose: 5,000 units Home Med (Budesonide/Formoterol Fumarate [Symbicort 160-4.5 Mcg Inhaler]) 2 aer IH BID [facility] Home Med (Dutasteride [Dutasteride]) 0.5 mg PO DAILY [facility] Levothyroxine Sodium (Synthroid) 25 mcg PO DAILY@0630 [facility] Methylprednisolone (Solu-Medrol) 40 mg IVP DAILY [facility] Last Admin: 12/29/18 13:24 Dose: 40 mg Metoprolol Succinate (Toprol Xl) 50 mg PO DAILY [facility] Pantoprazole Sodium (Protonix Ec Tab) 40 mg PO DAILY [facility] Rosuvastatin Calcium (Crestor) 40 mg PO HS [facility] Tamsulosin HCl (Flomax) 0.4 mg PO BID [facility] Tiotropium [place] (Spiriva) 18 mcg IH DAILY [facility] Tiotropium [place] (Spiriva Inhalation Handihaler Device) 1 inhaler INH ONCE ONE Stop: 12/29/18 12:26 Physical Exam - Extremities Exam Extremities exam: Positive for: pedal edema (+2 pitting edema from feet to bottom 2/3rd of bilateral shins), tenderness (tenderness when assessing degree of LE edema, but no calf tenderness). Negative for: calf tenderness, pedal pulses present (unable to palpate through pedal edema) - Additional Findings Additional findings: - Constitutional Appears: Non-toxic, No Acute Distress - Head Exam Head Exam: ATRAUMATIC, NORMAL INSPECTION, NORMOCEPHALIC - Eye Exam Eye Exam: Normal appearance. absent: Conjunctival injection, Scleral icterus Pupil Exam: absent: Irregular, Unequal - ENT Exam ENT Exam: Mucous Membranes Moist - Neck Exam Neck Exam: Full ROM, Normal Inspection - Respiratory Exam Respiratory Exam: Clear to Ausculation Bilateral, NORMAL BREATHING PATTERN. absent: Accessory Muscle Use, Chest Wall Tenderness, Decreased Breath Sounds, Rales, Rhonchi, Wheezes - Cardiovascular Exam Cardiovascular Exam: REGULAR RHYTHM, RRR, +S1, +S2. absent: Bradycardia, Tachycardia, Irregular Rhythm, JVD, +S4 - GI/Abdominal Exam GI & Abdominal Exam: Soft, Normal Bowel Sounds. absent: Distended, Firm, Guard ing, Rigid, Tenderness - Back Exam Back Exam: absent: CVA tenderness (L), CVA tenderness (R) - Neurological Exam awake and alert, following all commands appropriately, moving all extremities spontaneously - Psychiatric Exam Psychiatric exam: Normal Affect, Normal Mood - Skin Skin Exam: Dry, Intact, Normal Color, Warm Results - Vital Signs Recent Vital Signs: Last Vital Signs Temp 97.5 F L 12/29/18 13:09 Pulse 83 12/29/18 13:09 Resp 18 12/29/18 13:09 BP 161/81 H 12/29/18 13:09 Pulse Ox 95 12/29/18 13:09 - Labs Result Diagrams: 12/29/18 09:15 12/29/18 09:15 Labs: Laboratory Results - last 24 hr 12/29/18 12/29/18 12/29/18 09:15 09:15 09:15 WBC 5.9 RBC 2.84 L Hgb 9.3 L Hct 27.5 L MCV 96.7 H MCH 32.8 H MCHC 33.9 RDW 14.4 Plt Count 206 MPV 9.0 Neut % (Auto) 72.8 Lymph % (Auto) 18.7 L [place] % (Auto) 5.9 Eos % (Auto) 2.0 Baso % (Auto) 0.6 Neut # (Auto) 4.3 Lymph # (Auto) 1.1 [place] # (Auto) 0.3 Eos # (Auto) 0.1 Baso # (Auto) 0.0 PT 11.8 INR 1.1 APTT 35.0 H Sodium 146 Potassium 3.3 L Chloride 105 Carbon Dioxide 26 Anion Gap 18 BUN 29 H Creatinine 2.8 H Est GFR ( Amer) 26 Est GFR (Non-Af Amer) 22 Random Glucose 126 H D Calcium 9.2 Total Bilirubin 0.3 AST 18 ALT 20 L D Alkaline Phosphatase 55 Total Creatine Kinase 166 CK-MB (Mass) 1.89 Troponin I < 0.0120 NT-Pro-B Natriuret Pep 23673 H Total Protein 6.3 Albumin 3.9 Globulin 2.4 Albumin/Globulin Ratio 1.6 Urine Color Urine Clarity Urine pH Ur Specific [place] Urine Protein Urine Glucose (UA) Urine Ketones Urine Blood Urine Nitrate Urine Bilirubin Urine Urobilinogen Ur Leukocyte Esterase Urine WBC (Auto) Urine RBC (Auto) Ur Squamous Epith Cells 12/29/18 09:45 WBC RBC Hgb Hct MCV MCH MCHC RDW Plt Count MPV Neut % (Auto) Lymph % (Auto) [place] % (Auto) Eos % (Auto) Baso % (Auto) Neut # (Auto) Lymph # (Auto) [place] # (Auto) Eos # (Auto) Baso # (Auto) PT INR APTT Sodium Potassium Chloride Carbon Dioxide Anion Gap BUN Creatinine Est GFR ( Amer) Est GFR (Non-Af Amer) Random Glucose Calcium Total Bilirubin AST ALT Alkaline Phosphatase Total Creatine Kinase CK-MB (Mass) Troponin I NT-Pro-B Natriuret Pep Total Protein Albumin Globulin Albumin/Globulin Ratio Urine Color Yellow Urine Clarity Clear Urine pH 6.0 Ur Specific [place] 1.012 Urine Protein Negative Urine Glucose (UA) Normal Urine Ketones Negative Urine Blood Negative Urine Nitrate Negative Urine Bilirubin Negative Urine Urobilinogen Normal Ur Leukocyte Esterase 2+ H Urine WBC (Auto) 14 H Urine RBC (Auto) 1 Ur Squamous Epith Cells < 1 Assessment & Plan - Assessment and Plan (Free Text) Assessment: This is an 83yo M with PMH of COPD, CAD s/p CABG, Severe requiring TAVR, and BPH with obstructive uropathy recently s/p microwave thermopathy who presented with complaint of SOB. Nephro was consulted for elevated Cr in setting of obstructive uropathy. Plan: 1) Worsening Cr 2/2 obstructive uropathy 2) COPD 3) CAD s/p CABG 4) Severe requiring TAVR 5) BPH requiring gardner - pt still refusing 6) Shortness of breath 7) Anemia 8) bilateral hydronephrosis -renal failure 2/2 obstructive uropathy; Cr 3.6 prior to microwave thermopathy, 2.4 on admission, baseline per prior charting is 1.4 Avoid nephrotoxic agents as feasible; BP previously well controlled, can avoid use of ACEi/ARBs at this time Continue Flomax BID Recommend 20-40mg IV lasix daily Strong likelihood of obstructive etiology of renal failure, especially in setting of bilateral hydronephrosis and bladder trabecula patient continues to refuse gardner, wants more time to think about it -Pt will need likely TAVR prior to any TURP procedure Echo from last admission notable for EF 40-45%, mild LVH, moderate , mild AR, mild MR Patient reviewed and discussed with attending, Dr. Bonds <Pal Bonds - Last Filed: 12/30/18 08:23> Meds - Medications Medications: Current Medications Albuterol/Ipratropium (Duoneb 3 Mg/0.5 Mg (3 Ml) Ud) 3 ml INH RQ6 PRN PRN Reason: Shortness of Breath Arformoterol Tartrate (Brovana) 15 mcg INH RQ12@1000,2200 [facility] Last Admin: 12/29/18 21:45 Dose: 15 mcg Aspirin (Ecotrin) 81 mg PO DAILY [facility] Budesonide (Pulmicort Respules) 0.5 mg INH RQ12 [facility] Last Admin: 12/29/18 21:45 Dose: 0.5 mg Docusate Sodium (Colace) 100 mg PO DAILY [facility] Famotidine (Pepcid) 20 mg IVP DAILY [facility] Finasteride (Proscar) 5 mg PO DAILY [facility] Furosemide (Lasix) 20 mg IVP DAILY [facility] Heparin Sodium (Porcine) (Heparin) 5,000 units SC Q8 [facility] Last Admin: 12/30/18 06:33 Dose: 5,000 units Ipratropium [place] (Atrovent) 0.5 mg IH RQID [facility] Levothyroxine Sodium (Synthroid) 25 mcg PO DAILY@0630 [facility] Last Admin: 12/30/18 06:32 Dose: 25 mcg Methylprednisolone (Solu-Medrol) 40 mg IVP DAILY [facility] Last Admin: 12/29/18 13:24 Dose: 40 mg Metoprolol Succinate (Toprol Xl) 50 mg PO DAILY [facility] Pantoprazole Sodium (Protonix Ec Tab) 40 mg PO DAILY [facility] Rosuvastatin Calcium (Crestor) 40 mg PO HS [facility] Last Admin: 12/29/18 21:12 Dose: 40 mg Tamsulosin HCl (Flomax) 0.4 mg PO BID [facility] Last Admin: 12/29/18 17:28 Dose: 0.4 mg Zolpidem Tartrate (Ambien) 5 mg PO HS [facility] Last Admin: 12/29/18 22:34 Dose: 5 mg Results - Vital Signs Recent Vital Signs: Last Vital Signs Temp 98.3 F 12/30/18 07:10 Pulse 80 12/30/18 07:10 Resp 20 12/30/18 07:10 BP 121/73 12/30/18 07:10 Pulse Ox 97 12/30/18 07:10 - Labs Result Diagrams: 12/29/18 09:15 12/30/18 07:06 Labs: Laboratory Results - last 24 hr 12/29/18 12/29/18 12/29/18 09:15 09:15 09:15 WBC 5.9 RBC 2.84 L Hgb 9.3 L Hct 27.5 L MCV 96.7 H MCH 32.8 H MCHC 33.9 RDW 14.4 Plt Count 206 MPV 9.0 Neut % (Auto) 72.8 Lymph % (Auto) 18.7 L [place] % (Auto) 5.9 Eos % (Auto) 2.0 Baso % (Auto) 0.6 Neut # (Auto) 4.3 Lymph # (Auto) 1.1 [place] # (Auto) 0.3 Eos # (Auto) 0.1 Baso # (Auto) 0.0 PT 11.8 INR 1.1 APTT 35.0 H Sodium 146 Potassium 3.3 L Chloride 105 Carbon Dioxide 26 Anion Gap 18 BUN 29 H Creatinine 2.8 H Est GFR ( Amer) 26 Est GFR (Non-Af Amer) 22 Random Glucose 126 H D Calcium 9.2 Phosphorus Magnesium Total Bilirubin 0.3 AST 18 ALT 20 L D Alkaline Phosphatase 55 Total Creatine Kinase 166 CK-MB (Mass) 1.89 Troponin I < 0.0120 NT-Pro-B Natriuret Pep 53158 H Total Protein 6.3 Albumin 3.9 Globulin 2.4 Albumin/Globulin Ratio 1.6 Urine Color Urine Clarity Urine pH Ur Specific [place] Urine Protein Urine Glucose (UA) Urine Ketones Urine Blood Urine Nitrate Urine Bilirubin Urine Urobilinogen Ur Leukocyte Esterase Urine WBC (Auto) Urine RBC (Auto) Ur Squamous Epith Cells 12/29/18 12/30/18 09:45 07:06 WBC RBC Hgb Hct MCV MCH MCHC RDW Plt Count MPV Neut % (Auto) Lymph % (Auto) [place] % (Auto) Eos % (Auto) Baso % (Auto) Neut # (Auto) Lymph # (Auto) [place] # (Auto) Eos # (Auto) Baso # (Auto) PT INR APTT Sodium 139 Potassium 3.6 Chloride 107 Carbon Dioxide 26 Anion Gap 10 BUN 31 H Creatinine 2.8 H Est GFR ( Amer) 26 Est GFR (Non-Af Amer) 22 Random Glucose 107 Calcium 9.3 Phosphorus 4.4 Magnesium 1.9 Total Bilirubin 0.5 AST 24 ALT 19 L Alkaline Phosphatase 53 Total Creatine Kinase CK-MB (Mass) Troponin I NT-Pro-B Natriuret Pep Total Protein 6.5 Albumin 3.9 Globulin 2.6 Albumin/Globulin Ratio 1.5 Urine Color Yellow Urine Clarity Clear Urine pH 6.0 Ur Specific [place] 1.012 Urine Protein Negative Urine Glucose (UA) Normal Urine Ketones Negative Urine Blood Negative Urine Nitrate Negative Urine Bilirubin Negative Urine Urobilinogen Normal Ur Leukocyte Esterase 2+ H Urine WBC (Auto) 14 H Urine RBC (Auto) 1 Ur Squamous Epith Cells < 1 Attending/Attestation - Attestation I have personally seen and examined this patient.: Yes I have fully participated in the care of the patient.: Yes I have reviewed all pertinent clinical information: Yes Notes (Text): Patient seen and examined; I agree with the resident's note as above with the following additions/edits: 83 yo M with PMH of COPD, CAD s/p CABG, Severe requiring TAVR, and BPH with obstructive uropathy and b/l hydronephrosis, seen by us earlier this month for a dmission with decompensated systolic CHF, presents again with similar presentation complaining of dypsnea and leg swelling; KT with renal failure worsened since last year in the setting of obstrutive uropathy; Moderate to severe hydronephrosis with worsening renal function was seen on imaging on last admission with patient having elevated post-void residual volume and imaging showing prostate pushing against urinary bladder; we repeatedly advised his that gardner catheter placement is needed to decompress bladder and allow for correction of hydronephrosis/renal failure, however, he refused gardner placement thinking that he was urinating well although we made it clear that he has a partial obstruction that was misleading him into thinking this way; Furthermore, patient has been in need of TAVR procedure to correct since at least Apr 2018 but patient didn't follow up on this; we also made it clear on last admission that unless renal function is back to baseline, TAVR would likely not be done due to the risk for contrast injury; Patient currently with dyspnea and moderate b/l leg edema although lungs are clear by exam and CXR, and without JVD; agree with primary team that he likely has a COPD component but we should continue treating him for acute decompensated systolic CHF with IV lasix; Patient finally agreed for gardner catheter this evening, placed just before my encounter; aobut 300 cc residual drained; bladder currently non-distended but primary team instructed to check bladder scan to ensure adequate placement; also, as obstruction was partial, we likely won't see very brisk diuresis but need to monitor for poluria, and if it ensues should replace 2/3 of losses with 1/2NS to avoid volume depletion; will need to observe for next 24-48hrs; -continue IV lasix 20 mg bid; -continue flomax 0.4 mg bid and finasteride 5 mg daily; -avoid nephrotoxic agents;
--- NOTE | 2018-12-29 14:43 | US ---
Date of service: 12/29/2018 PROCEDURE: Ultrasound of the Kidneys HISTORY: urinary obstruction COMPARISON: 12/13/2018. TECHNIQUE: Grayscale imaging was performed. FINDINGS: RIGHT KIDNEY: Measures: 12.8 cm. Normal in size, contour with diffuse increased echogenicity. There is moderate hydronephrosis. No stone visualized. LEFT KIDNEY: Measures: 12.4 cm. Normal in size, contour with diffuse increased echogenicity. There is moderate hydronephrosis. No stone visualized. OTHER FINDINGS: The urinary bladder is over distended with trabeculations and wall thickening. Bilateral ureteral jets are not visualized on color flow imaging. The prevoid urinary volume is 840.3 mL. The postvoid urinary volume is 388.4 mL. The prostate gland is enlarged and measures 5.6 x 4.7 x 5.4 cm. There is central coarse calcification. The prostatic volume is 75 mL. IMPRESSION: 1. Redemonstration of moderate hydronephrosis and chronic renal parenchymal disease. 2. Over distended urinary bladder with trabeculations. Large postvoid residual. 3. Enlarged prostate gland with prostatic volume of 75 mL. Please correlate with PSA levels
--- NOTE | 2018-12-29 15:01 | RAD ---
Date of service: 12/29/2018 HISTORY: constipation? COMPARISON: None available. TECHNIQUE: 1 view obtained. FINDINGS: BOWEL: No evidence of bowel obstruction. Mild retained fecal matter. No hepatic or splenic enlargement. No masses or abnormal intra-abdominal calcifications. BONES: Normal. OTHER FINDINGS: None. IMPRESSION: Mild retained feces. Otherwise unremarkable.
[2018-12-29] MEDS ORDERED: Ipratropium 0.02% Inhal Soln (0.5 mg/2.5 ml) UD IH SCH (16:00)
[2018-12-29] MEDS ORDERED: Albuterol-Ipratrop 3 mg / 0.5 (3 ml) UD INH PRN (17:46)
[2018-12-29] MEDS: Arformoterol 15 mcg/2 ml Inh Sol INH SCH (21:45)
[2018-12-29] MEDS: Budesonide 0.5 mg/2 ml Inhal Susp UD INH SCH (21:45)
[2018-12-29] MEDS ORDERED: ZOLPIDEM TARTRATE 10 MG PO SCH (22:00)
[2018-12-30] MEDS: Levothyroxine 25 MCG TAB PO SCH (06:32)
[2018-12-30 08:02] LABS: ALB/GLOB RATIO 1.5 (1.0-2.1); ALBUMIN 3.9 g/dL (3.5-5.0); CALCIUM 9.3 mg/dl (8.6-10.4)
[2018-12-30] MEDS: Budesonide 0.5 mg/2 ml Inhal Susp UD INH SCH ×2 (08:08→20:04)
--- NOTE | 2018-12-30 08:49 | CP.PCM.PN ---
<Valeria Jacobs - Last Filed: 12/30/18 09:39> Subjective - Date & Time of Evaluation Date of Evaluation: 12/30/18 Time of Evaluation: 08:47 - Subjective Subjective: PGY3 progress note for hospitalists Pt seen and examined at bedside. No acute events overnight. Gardner in place draining red tinged urine. Pt c/o mild burning with urination into gardner. Pt does state shortness of breath has improved slightly. Denies having any CP, abd pain, coughing, F/C, D/C. Objective - Vital Signs/Intake and Output Vital Signs (last 24 hours): Temp Pulse Resp BP Pulse Ox 98.3 F 80 20 121/73 97 12/30/18 07:10 12/30/18 07:10 12/30/18 07:10 12/30/18 07:10 12/30/18 07:10 Intake and Output: 12/30/18 12/30/18 06:59 18:59 Intake Total 200 Output Total 2200 Balance -1999 - Medications Medications: Current Medications Albuterol/Ipratropium (Duoneb 3 Mg/0.5 Mg (3 Ml) Ud) 3 ml INH RQ6 PRN PRN Reason: Shortness of Breath Arformoterol Tartrate (Brovana) 15 mcg INH RQ12@1000,2200 [facility] Last Admin: 12/29/18 21:45 Dose: 15 mcg Aspirin (Ecotrin) 81 mg PO DAILY [facility] Budesonide (Pulmicort Respules) 0.5 mg INH RQ12 [facility] Last Admin: 12/29/18 21:45 Dose: 0.5 mg Docusate Sodium (Colace) 100 mg PO DAILY [facility] Famotidine (Pepcid) 20 mg IVP DAILY [facility] Finasteride (Proscar) 5 mg PO DAILY [facility] Furosemide (Lasix) 20 mg IVP DAILY [facility] Heparin Sodium (Porcine) (Heparin) 5,000 units SC Q8 [facility] Last Admin: 12/30/18 06:33 Dose: 5,000 units Ipratropium [place] (Atrovent) 0.5 mg IH RQID [facility] Levothyroxine Sodium (Synthroid) 25 mcg PO DAILY@0630 [facility] Last Admin: 12/30/18 06:32 Dose: 25 mcg Methylprednisolone (Solu-Medrol) 40 mg IVP DAILY [facility] Last Admin: 12/29/18 13:24 Dose: 40 mg Metoprolol Succinate (Toprol Xl) 50 mg PO DAILY [facility] Pantoprazole Sodium (Protonix Ec Tab) 40 mg PO DAILY [facility] Rosuvastatin Calcium (Crestor) 40 mg PO [facility] Last Admin: 12/29/18 21:12 Dose: 40 mg Tamsulosin HCl (Flomax) 0.4 mg PO BID [facility] Last Admin: 12/29/18 17:28 Dose: 0.4 mg Zolpidem Tartrate (Ambien) 5 mg PO HS [facility] Last Admin: 12/29/18 22:34 Dose: 5 mg - Labs Labs: 12/29/18 09:15 12/30/18 07:06 PT 11.8 SECONDS (9.7-12.2) 12/29/18 09:15 INR 1.1 12/29/18 09:15 APTT 35.0 SECONDS (21-34) H 12/29/18 09:15 - Constitutional Appears: Non-toxic, No Acute Distress - Head Exam Head Exam: ATRAUMATIC, NORMOCEPHALIC - ENT Exam ENT Exam: Mucous Membranes Moist - Respiratory Exam Respiratory Exam: Rales (mild rales), NORMAL BREATHING PATTERN. absent: Accessory Muscle Use, Rhonchi, Wheezes - Cardiovascular Exam Cardiovascular Exam: REGULAR RHYTHM. absent: Gallop, Rubs, +S1, +S2, Murmur - GI/Abdominal Exam GI & Abdominal Exam: Soft, Normal Bowel Sounds. absent: Distended, Firm, Guarding, Rigid, Tenderness, Organomegaly - Extremities Exam Extremities Exam: Full ROM, Pedal Edema (trace ). absent: Calf Tenderness, Tenderness - Neurological Exam Neurological Exam: Alert, Awake, Oriented x3 - Psychiatric Exam Psychiatric exam: Normal Affect, Normal Mood - Skin Skin Exam: Dry, Intact, Normal Color, Warm Assessment and Plan - Assessment and Plan (Free Text) Assessment: Acute on chronic systolic heart failure - ECHO 12/13/18 - EF of 40-45%; systolic fxn moderately impaired, moderate aortic stenosis - BNP on admission 30981w (previously 3000s) - CXRAY: severe pulmonary venous congestion - Lasix 40 mg in ED given, c/w lasix 20 mg IVP daily - strict I/O's - daily weights - fluid restrict - c/w home medication metoprolol xl 50 mg daily BPH with partial obstructive uropathy -Gardner inplace - bladder scan post void >600 cc urine - renal ultrasound: moderate hydronephrosis, distended bladder, prostate volume 75 ml - F/u UC - F/u urology, Dr. Chapito de la cruz - c/w home medication flomax 0.4 mg PO BID UTI - 14 wbc, leuko esterase 2+ - start ceftriaxone 1gm daily Acute on chronic renal failure - Cr 2.8, GFR 20s, previously similar numbers - renal ultrasound: moderate hydronephrosis, distended bladder, prostate volume 75 ml - f/u nephro, Dr. Cammie de la cruz History of COPD - c/w home medications spiriva - start solu-medrol 40 mg IVP daily - duonebs Q6H PRN History of Coronary Artery Disease History of Aortic Stenosis - c/w aspirin 81 mg daily, metoprolol succinate 50 mg Po daily, rosuvastain 40 mg daily - F/u cardio, Dr. Lee de la cruz History of hypothyrodism - c/w levothyroxine 25 mcg daily Constipation - last reported bowel movement 2 days prior - c/w home medication colace 100 mg daily for now PPx - DVT: heparin 5000 units daily - GI: HHD, pepcid 20 mg daily Case discussed with attending, Dr. Wilkerson <Surendra Wilkerson - Last Filed: 12/30/18 17:32> Objective - Vital Signs/Intake and Output Vital Signs (last 24 hours): Temp Pulse Resp BP Pulse Ox 98.3 F 80 20 116/67 97 12/30/18 07:10 12/30/18 07:10 12/30/18 07:10 12/30/18 10:12 12/30/18 07:10 Intake and Output: 12/30/18 12/30/18 06:59 18:59 Intake Total 200 Output Total 2200 950 Balance -2000 -950 - Medications Medications: Current Medications Albuterol/Ipratropium (Duoneb 3 Mg/0.5 Mg (3 Ml) Ud) 3 ml INH RQ6 PRN PRN Reason: Shortness of Breath Arformoterol Tartrate (Brovana) 15 mcg INH RQ12@1000,2200 [facility] Last Admin: 12/30/18 09:53 Dose: Not Given Aspirin (Ecotrin) 81 mg PO DAILY [facility] Last Admin: 12/30/18 10:11 Dose: 81 mg Budesonide (Pulmicort Respules) 0.5 mg INH RQ12 [facility] Last Admin: 12/30/18 08:08 Dose: 0.5 mg Docusate Sodium (Colace) 100 mg PO DAILY [facility] Last Admin: 12/30/18 10:11 Dose: 100 mg Famotidine (Pepcid) 20 mg IVP DAILY [facility] Last Admin: 12/30/18 10:15 Dose: 20 mg Finasteride (Proscar) 5 mg PO DAILY [facility] Last Admin: 12/30/18 10:11 Dose: 5 mg Furosemide (Lasix) 40 mg IVP BID [facility] Heparin Sodium (Porcine) (Heparin) 5,000 units SC Q8 [facility] Last Admin: 12/30/18 14:30 Dose: 5,000 units Ipratropium [place] (Atrovent) 0.5 mg IH RQID [facility] Levothyroxine Sodium (Synthroid) 25 mcg PO DAILY@0630 [facility] Last Admin: 12/30/18 06:32 Dose: 25 mcg Methylprednisolone (Solu-Medrol) 40 mg IVP DAILY [facility] Last Admin: 12/30/18 10:13 Dose: 40 mg Metoprolol Succinate (Toprol Xl) 50 mg PO DAILY [facility] Last Admin: 12/30/18 10:11 Dose: 50 mg Pantoprazole Sodium (Protonix Ec Tab) 40 mg PO DAILY [facility] Last Admin: 12/30/18 10:12 Dose: 40 mg Phenazopyridine HCl (Pyridium) 100 mg PO PC [facility] Last Admin: 12/30/18 14:30 Dose: 100 mg Polyethylene Glycol (Miralax) 17 gm PO DAILY [facility] Last Admin: 12/30/18 14:30 Dose: 17 gm Rosuvastatin Calcium (Crestor) 40 mg PO HS [facility] Last Admin: 12/29/18 21:12 Dose: 40 mg Tamsulosin HCl (Flomax) 0.4 mg PO BID [facility] Last Admin: 12/30/18 10:11 Dose: 0.4 mg Zolpidem Tartrate (Ambien) 5 mg PO HS [facility] Last Admin: 12/29/18 22:34 Dose: 5 mg - Labs Labs: 12/30/18 15:14 12/30/18 07:06 PT 11.8 SECONDS (9.7-12.2) 12/29/18 09:15 INR 1.1 12/29/18 09:15 APTT 35.0 SECONDS (21-34) H 12/29/18 09:15 Attending/Attestation - Attestation I have personally seen and examined this patient.: Yes I have fully participated in the care of the patient.: Yes I have reviewed all pertinent clinical information, including history, physical exam and plan: Yes Notes (Text): Seen and examined this morning with the resident. patient is complaining of dysuria,His breathing is better. had total UOP 2200ml after faley placed. Spoke to nephrology. we will monitor UOP.If his out remains high consider giving fluids keep faley cath,continue IV lasix 40mg IV as recommended by full fashioned garment knitter 1.Acute exacerbation of CHF,systolic heart failure ,Severe aortic stenosis 2.Retention of urine,BPH,chronic obstructive uropathy and acute on chronic renal failure Pt refuses Gardner cath,prostectomy was not done due to heart issues ? 3.Aortic stenosis(moderate),Aortic valve replacement in ,PPM in 2016 4.COPD .He was a smoker
[2018-12-30] MEDS: Arformoterol 15 mcg/2 ml Inh Sol INH SCH ×2 (09:53→21:05)
[2018-12-30] MEDS: Metoprolol Succinate 50 mg XL Tab PO SCH (10:11)
[2018-12-30] MEDS: Pantoprazole 40 mg EC Tab PO SCH (10:12)
[2018-12-30] MEDS: MethylPREDNISolone 40 mg Vial IVP SCH (10:13)
--- NOTE | 2018-12-30 13:02 | CP.PCM.PN ---
Subjective - Date & Time of Evaluation Date of Evaluation: 12/30/18 Time of Evaluation: 13:01 - Subjective Subjective: sob improving with IV lasix Objective - Vital Signs/Intake and Output Vital Signs (last 24 hours): Temp Pulse Resp BP Pulse Ox 98.3 F 80 20 116/67 97 12/30/18 07:10 12/30/18 07:10 12/30/18 07:10 12/30/18 10:12 12/30/18 07:10 Intake and Output: 12/30/18 12/30/18 06:59 18:59 Intake Total 200 Output Total 2200 Balance -1999 - Medications Medications: Current Medications Albuterol/Ipratropium (Duoneb 3 Mg/0.5 Mg (3 Ml) Ud) 3 ml INH RQ6 PRN PRN Reason: Shortness of Breath Arformoterol Tartrate (Brovana) 15 mcg INH RQ12@1000,2200 [facility] Last Admin: 12/30/18 09:53 Dose: Not Given Aspirin (Ecotrin) 81 mg PO DAILY [facility] Last Admin: 12/30/18 10:11 Dose: 81 mg Budesonide (Pulmicort Respules) 0.5 mg INH RQ12 [facility] Last Admin: 12/29/18 21:45 Dose: 0.5 mg Docusate Sodium (Colace) 100 mg PO DAILY [facility] Last Admin: 12/30/18 10:11 Dose: 100 mg Famotidine (Pepcid) 20 mg IVP DAILY [facility] Last Admin: 12/30/18 10:15 Dose: 20 mg Finasteride (Proscar) 5 mg PO DAILY [facility] Last Admin: 12/30/18 10:11 Dose: 5 mg Furosemide (Lasix) 40 mg IVP BID [facility] Heparin Sodium (Porcine) (Heparin) 5,000 units SC Q8 [facility] Last Admin: 12/30/18 06:33 Dose: 5,000 units Ipratropium [place] (Atrovent) 0.5 mg IH RQID [facility] Levothyroxine Sodium (Synthroid) 25 mcg PO DAILY@0630 [facility] Last Admin: 12/30/18 06:32 Dose: 25 mcg Methylprednisolone (Solu-Medrol) 40 mg IVP DAILY [facility] Last Admin: 12/30/18 10:13 Dose: 40 mg Metoprolol Succinate (Toprol Xl) 50 mg PO DAILY [facility] Last Admin: 12/30/18 10:11 Dose: 50 mg Pantoprazole Sodium (Protonix Ec Tab) 40 mg PO DAILY [facility] Last Admin: 12/30/18 10:12 Dose: 40 mg Phenazopyridine HCl (Pyridium) 100 mg PO PC [facility] Polyethylene Glycol (Miralax) 17 gm PO DAILY [facility] Rosuvastatin Calcium (Crestor) 40 mg PO HS [facility] Last Admin: 12/29/18 21:12 Dose: 40 mg Tamsulosin HCl (Flomax) 0.4 mg PO BID [facility] Last Admin: 12/30/18 10:11 Dose: 0.4 mg Zolpidem Tartrate (Ambien) 5 mg PO HS [facility] Last Admin: 12/29/18 22:34 Dose: 5 mg - Labs Labs: 12/29/18 09:15 12/30/18 07:06 PT 11.8 SECONDS (9.7-12.2) 12/29/18 09:15 INR 1.1 12/29/18 09:15 APTT 35.0 SECONDS (21-34) H 12/29/18 09:15 - Constitutional Appears: Well - Head Exam Head Exam: ATRAUMATIC, NORMAL INSPECTION, NORMOCEPHALIC - Eye Exam Eye Exam: EOMI, Normal appearance, PERRL Pupil Exam: NORMAL ACCOMODATION, PERRL - ENT Exam ENT Exam: Mucous Membranes Moist, Normal Exam - Neck Exam Neck Exam: Full ROM, Normal Inspection. absent: Lymphadenopathy - Respiratory Exam Respiratory Exam: Clear to Ausculation Bilateral, NORMAL BREATHING PATTERN - Cardiovascular Exam Cardiovascular Exam: REGULAR RHYTHM, +S1, +S2. absent: Murmur - GI/Abdominal Exam GI & Abdominal Exam: Soft, Normal Bowel Sounds. absent: Tenderness - Extremities Exam Extremities Exam: Full ROM, Normal Capillary Refill, Normal Inspection. absent: Joint Swelling, Pedal Edema - Back Exam Back Exam: NORMAL INSPECTION - Neurological Exam Neurological Exam: Alert, Awake, CN II-XII Intact, Normal Gait, Oriented x3 - Psychiatric Exam Psychiatric exam: Normal Affect, Normal Mood - Skin Skin Exam: Dry, Intact, Normal Color, Warm Assessment and Plan (1) CHF exacerbation Assessment & Plan: chg lasix to 40 IV bid cont toprol xl plan for cath once renal function improve Status: Acute (2) Dyspnea Status: Acute (3) Renal insufficiency Status: Acute (4) Aortic stenosis Status: Acute
[2018-12-30] MEDS: POLYETHYLENE GLYCOL 3350 17 GM/Dose PACKET PO SCH (14:30)
[2018-12-30 15:17] LABS: BASO % 0.4 % (0.0-2.0); EOS # 0.1 K/uL (0.0-0.7); EOS % 0.5 % (0.0-4.0); HEMOGLOBIN 10.1 g/dL (12.0-18.0); LYMPH # 0.6 K/uL (1.0-4.3); LYMPH % 6.3 % (20.0-40.0); MEAN CELL VOLUME 97.6 fL (80.0-94.0); MEAN CORPUSCULAR HEMOGLOBIN 32.5 pg (27.0-31.0); MEAN CORPUSCULAR HGB CONC 33.4 g/dL (33.0-37.0); MEAN PLATELET VOLUME 9.3 fL (7.2-11.7); MONO # 0.2 K/uL (0.0-0.8); MONO % 2.1 % (0.0-10.0); NEUT # 8.7 K/uL (1.8-7.0); NEUT % 90.7 % (50.0-75.0); PLATELET COUNT 234 K/uL (130-400); RBC 3.11 Mil/uL (4.40-5.90); RED CELL DISTRIBUTION WIDTH 14.6 % (11.5-14.5); WHITE BLOOD COUNT 9.6 K/uL (4.8-10.8)
[2018-12-30 16:15] LABS: ANISOCYTOSIS SLIGHT; BANDS 1 % (0-2); LYMPHOCYTE 6 % (20-40); MONOCYTE 2 % (0-10); NEUTROPHIL 91 % (50-75); PLATELET ESTIMATE NORMAL (NORMAL); TOTAL CELLS COUNTED 100
--- NOTE | 2018-12-30 23:54 | CP.PCM.PN ---
Subjective - Date & Time of Evaluation Date of Evaluation: 12/30/18 Time of Evaluation: 14:00 - Subjective Subjective: Patient reporting improvement in shortness of breath but says now having nasal congestion; Objective - Vital Signs/Intake and Output Vital Signs (last 24 hours): Temp Pulse Resp BP Pulse Ox 98.4 F 64 20 120/82 97 12/30/18 15:10 12/30/18 17:15 12/30/18 15:10 12/30/18 19:03 12/30/18 21:52 Intake and Output: 12/30/18 12/31/18 18:59 06:59 Output Total 950 Balance -950 - Medications Medications: Current Medications Albuterol/Ipratropium (Duoneb 3 Mg/0.5 Mg (3 Ml) Ud) 3 ml INH RQ6 PRN PRN Reason: Shortness of Breath Arformoterol Tartrate (Brovana) 15 mcg INH RQ12@1000,2200 [facility] Last Admin: 12/30/18 21:05 Dose: 15 mcg Aspirin (Ecotrin) 81 mg PO DAILY [facility] Last Admin: 12/30/18 10:11 Dose: 81 mg Budesonide (Pulmicort Respules) 0.5 mg INH RQ12 [facility] Last Admin: 12/30/18 20:04 Dose: 0.5 mg Docusate Sodium (Colace) 100 mg PO DAILY [facility] Last Admin: 12/30/18 10:11 Dose: 100 mg Famotidine (Pepcid) 20 mg IVP DAILY [facility] Last Admin: 12/30/18 10:15 Dose: 20 mg Finasteride (Proscar) 5 mg PO DAILY [facility] Last Admin: 12/30/18 10:11 Dose: 5 mg Furosemide (Lasix) 40 mg IVP BID [facility] Last Admin: 12/30/18 19:03 Dose: 40 mg Heparin Sodium (Porcine) (Heparin) 5,000 units SC Q8 [facility] Last Admin: 12/30/18 22:36 Dose: 5,000 units Ipratropium [place] (Atrovent) 0.5 mg IH RQID [facility] Levothyroxine Sodium (Synthroid) 25 mcg PO DAILY@0630 [facility] Last Admin: 12/30/18 06:32 Dose: 25 mcg Methylprednisolone (Solu-Medrol) 40 mg IVP DAILY [facility] Last Admin: 12/30/18 10:13 Dose: 40 mg Metoprolol Succinate (Toprol Xl) 50 mg PO DAILY [facility] Last Admin: 12/30/18 10:11 Dose: 50 mg Pantoprazole Sodium (Protonix Ec Tab) 40 mg PO DAILY [facility] Last Admin: 12/30/18 10:12 Dose: 40 mg Phenazopyridine HCl (Pyridium) 100 mg PO PC [facility] Last Admin: 12/30/18 19:03 Dose: 100 mg Polyethylene Glycol (Miralax) 17 gm PO DAILY [facility] Last Admin: 12/30/18 14:30 Dose: 17 gm Rosuvastatin Calcium (Crestor) 40 mg PO HS [facility] Last Admin: 12/30/18 22:37 Dose: 40 mg Tamsulosin HCl (Flomax) 0.4 mg PO BID [facility] Last Admin: 12/30/18 19:02 Dose: 0.4 mg Zolpidem Tartrate (Ambien) 5 mg PO HS [facility] Last Admin: 12/30/18 22:37 Dose: 5 mg - Labs Labs: 12/30/18 15:14 12/30/18 07:06 PT 11.8 SECONDS (9.7-12.2) 12/29/18 09:15 INR 1.1 12/29/18 09:15 APTT 35.0 SECONDS (21-34) H 12/29/18 09:15 - Constitutional Appears: Non-toxic, No Acute Distress - Eye Exam Eye Exam: Normal appearance - Respiratory Exam Respiratory Exam: Clear to Ausculation Bilateral. absent: Respiratory Distress - Cardiovascular Exam Cardiovascular Exam: RRR, Rubs. absent: Gallop, JVD - GI/Abdominal Exam GI & Abdominal Exam: Soft, Tenderness. absent: Distended - Extremities Exam Additional comments: 1-2+ b/l lower leg edema; - Neurological Exam Neurological Exam: Alert, Awake - Psychiatric Exam Psychiatric exam: Normal Mood. absent: Agitated - Skin Skin Exam: Warm. absent: Cyanosis Assessment and Plan (1) Acute kidney injury Assessment & Plan: Secondary to obstructive uropathy from prostate enlargement; now with gardner since yesterday and ensuing polyuria phase (UO ~125 cc/hr since this morning and 2.3L in about 13hrs since gardner placement till this morning); hydronephrosis/renal failure may take a while to resolve and renal function may never improve to previous baseline; -will recommend to hold diuretics temporariliy as patient is already auto- diuresing; will hold off on replacing losses as there is concern for CHF exacerbation; -need strict I/O; -monitor lytes; -avoid nephrotoxic agents; Status: Acute (2) Obstructive uropathy Assessment & Plan: Will need to maintain gardner until definitive treatment can be done for prostate enlargement; continue flomax 0.4 mg bid and finasteride; Status: Acute (3) CHF exacerbation Assessment & Plan: Doesn't appear overtly volume overloaded despite leg edema; lungs clear; see above regarding diuretics, can restart after polyuria resolves; Status: Acute
[2018-12-31] MEDS: Levothyroxine 25 MCG TAB PO SCH (06:19)
[2018-12-31 08:58] LABS: BASO # 0.1 K/uL (0.0-0.2); BASO % 0.7 % (0.0-2.0); EOS # 0.2 K/uL (0.0-0.7); EOS % 2.6 % (0.0-4.0); LYMPH # 1.7 K/uL (1.0-4.3); LYMPH % 23.7 % (20.0-40.0); MEAN CELL VOLUME 96.7 fL (80.0-94.0); MEAN CORPUSCULAR HEMOGLOBIN 32.9 pg (27.0-31.0); MONO # 0.5 K/uL (0.0-0.8); MONO % 6.7 % (0.0-10.0); NEUT # 4.7 K/uL (1.8-7.0); NEUT % 66.3 % (50.0-75.0); RBC 3.04 Mil/uL (4.40-5.90); RED CELL DISTRIBUTION WIDTH 14.5 % (11.5-14.5); WHITE BLOOD COUNT 7.1 K/uL (4.8-10.8)
[2018-12-31 09:15] LABS: ALB/GLOB RATIO 1.7 (1.0-2.1); ALBUMIN 4.3 g/dL (3.5-5.0); CALCIUM 8.9 mg/dl (8.6-10.4)
[2018-12-31] MEDS: Budesonide 0.5 mg/2 ml Inhal Susp UD INH SCH ×2 (09:19→19:52)
[2018-12-31] MEDS: Arformoterol 15 mcg/2 ml Inh Sol INH SCH ×2 (09:19→21:58)
[2018-12-31] MEDS: Pantoprazole 40 mg EC Tab PO SCH (10:02)
[2018-12-31] MEDS: POLYETHYLENE GLYCOL 3350 17 GM/Dose PACKET PO SCH (10:04)
[2018-12-31] MEDS: Metoprolol Succinate 50 mg XL Tab PO SCH (10:12)
[2018-12-31] MEDS: MethylPREDNISolone 40 mg Vial IVP SCH (10:13)
--- NOTE | 2018-12-31 10:48 | CP.PCM.PN ---
Subjective - Date & Time of Evaluation Date of Evaluation: 12/31/18 Time of Evaluation: 10:43 - Subjective Subjective: PGY3 progress note for hospitalists Pt seen and examined at bedside. Sitting comfortably on chair. SOB has improved considerably. Denies having any CP, abd pain, N/V/D/ F/C. Complaining of constipation x 5 days. Objective - Vital Signs/Intake and Output Vital Signs (last 24 hours): Temp Pulse Resp BP Pulse Ox 97.3 F L 72 20 118/72 100 12/31/18 07:10 12/31/18 10:00 12/31/18 10:00 12/31/18 10:00 12/31/18 07:10 Intake and Output: 12/31/18 12/31/18 06:59 18:59 Intake Total 100 Output Total 300 Balance -200 - Medications Medications: Current Medications Albuterol/Ipratropium (Duoneb 3 Mg/0.5 Mg (3 Ml) Ud) 3 ml INH RQ6 PRN PRN Reason: Shortness of Breath Arformoterol Tartrate (Brovana) 15 mcg INH RQ12@1000,2200 [facility] Last Admin: 12/31/18 09:19 Dose: Not Given Aspirin (Ecotrin) 81 mg PO DAILY [facility] Last Admin: 12/31/18 10:03 Dose: 81 mg Budesonide (Pulmicort Respules) 0.5 mg INH RQ12 [facility] Last Admin: 12/31/18 09:19 Dose: 0.5 mg Docusate Sodium (Colace) 100 mg PO DAILY [facility] Last Admin: 12/31/18 10:02 Dose: 100 mg Famotidine (Pepcid) 20 mg IVP DAILY [facility] Last Admin: 12/31/18 10:03 Dose: 20 mg Finasteride (Proscar) 5 mg PO DAILY [facility] Last Admin: 12/31/18 10:12 Dose: 5 mg Furosemide (Lasix) 40 mg IVP BID [facility] Last Admin: 12/30/18 19:03 Dose: 40 mg Heparin Sodium (Porcine) (Heparin) 5,000 units SC Q8 [facility] Last Admin: 12/31/18 06:20 Dose: 5,000 units Ipratropium [place] (Atrovent) 0.5 mg IH RQID [facility] Levothyroxine Sodium (Synthroid) 25 mcg PO DAILY@0630 [facility] Last Admin: 12/31/18 06:19 Dose: 25 mcg Methylprednisolone (Solu-Medrol) 40 mg IVP DAILY [facility] Last Admin: 12/31/18 10:13 Dose: 40 mg Metoprolol Succinate (Toprol Xl) 50 mg PO DAILY [facility] Last Admin: 12/31/18 10:12 Dose: 50 mg Pantoprazole Sodium (Protonix Ec Tab) 40 mg PO DAILY [facility] Last Admin: 12/31/18 10:02 Dose: 40 mg Phenazopyridine HCl (Pyridium) 100 mg PO PC [facility] Last Admin: 12/31/18 09:55 Dose: 100 mg Polyethylene Glycol (Miralax) 17 gm PO DAILY [facility] Last Admin: 12/31/18 10:04 Dose: 17 gm Rosuvastatin Calcium (Crestor) 40 mg PO HS [facility] Last Admin: 12/30/18 22:37 Dose: 40 mg Tamsulosin HCl (Flomax) 0.4 mg PO BID [facility] Last Admin: 12/31/18 10:04 Dose: 0.4 mg Zolpidem Tartrate (Ambien) 5 mg PO HS [facility] Last Admin: 12/30/18 22:37 Dose: 5 mg - Labs Labs: 12/31/18 08:42 12/31/18 08:40 PT 11.8 SECONDS (9.7-12.2) 12/29/18 09:15 INR 1.1 12/29/18 09:15 APTT 35.0 SECONDS (21-34) H 12/29/18 09:15 - Constitutional Appears: Non-toxic, No Acute Distress - Head Exam Head Exam: ATRAUMATIC, NORMOCEPHALIC - ENT Exam ENT Exam: Mucous Membranes Moist - Respiratory Exam Respiratory Exam: Rales (mild ). absent: Accessory Muscle Use, Rhonchi, Wheeze s, Respiratory Distress - Cardiovascular Exam Cardiovascular Exam: REGULAR RHYTHM, +S1, +S2. absent: Diastolic murmur, Gallop, Rubs, Murmur - GI/Abdominal Exam GI & Abdominal Exam: Soft, Normal Bowel Sounds. absent: Distended, Firm, Guarding, Rigid, Tenderness, Organomegaly - Extremities Exam Extremities Exam: absent: Pedal Edema, Tenderness - Neurological Exam Neurological Exam: Alert, Awake, Oriented x3 - Psychiatric Exam Psychiatric exam: Normal Affect, Normal Mood - Skin Skin Exam: Dry, Intact, Normal Color, Warm Assessment and Plan - Assessment and Plan (Free Text) Assessment: Acute on chronic systolic heart failure - ECHO 12/13/18 - EF of 40-45%; systolic fxn moderately impaired, moderate aortic stenosis - BNP on admission 16816x (previously 3000s) - CXRAY: severe pulmonary venous congestion - Lasix 40 IV BID (increased yesterday) - strict I/O's - daily weights - fluid restrict - c/w home medication metoprolol xl 50 mg daily BPH with partial obstructive uropathy - Walker inplace - renal ultrasound: moderate hydronephrosis, distended bladder, prostate volume 75 ml - Urine culture negative - F/u urology, Dr. Chapito de la cruz - c/w home medication flomax 0.4 mg PO BID UTI - 14 wbc, leuko esterase 2+ - start ceftriaxone 1gm daily Acute on chronic renal failure - Cr 2.8, GFR 20s, previously similar numbers - renal ultrasound: moderate hydronephrosis, distended bladder, prostate volume 75 ml - f/u nephro, Dr. Cammie de la cruz History of COPD - c/w home medications spiriva - start solu-medrol 40 mg IVP daily - duonebs Q6H PRN History of Coronary Artery Disease History of Aortic Stenosis - c/w aspirin 81 mg daily, metoprolol succinate 50 mg Po daily, rosuvastain 40 mg daily - F/u cardio, Dr. Lee de la cruz History of hypothyrodism - c/w levothyroxine 25 mcg daily Constipation - last reported bowel movement 2 days prior - c/w home medication colace 100 mg daily and miralax PPx - DVT: heparin 5000 units daily - GI: HHD, pepcid 20 mg daily Case discussed with attending, Dr. Wilkerson
[2018-12-31 11:52] LABS: IRON 57 ug/dL (49-181)
[2018-12-31 12:02] LABS: % IRON SATURATION 23 (20-55); TOTAL IRON BINDING CAPACITY 251 ug/dL (250-450)
[2018-12-31] MEDS ORDERED: Magnesium Hydroxide Susp 30 ml UD PO ONE (21:51)
[2018-12-31] MEDS: Ipratropium 0.02% Inhal Soln (0.5 mg/2.5 ml) UD IH SCH (21:58)
--- NOTE | 2018-12-31 23:47 | CP.PCM.PN ---
Subjective - Date & Time of Evaluation Date of Evaluation: 12/31/18 Time of Evaluation: 22:30 - Subjective Subjective: Patient reports breathing improved; tolerating diet; Objective - Vital Signs/Intake and Output Vital Signs (last 24 hours): Temp Pulse Resp BP Pulse Ox 98.3 F 75 20 119/65 99 12/31/18 15:00 12/31/18 15:00 12/31/18 15:00 12/31/18 15:00 12/31/18 15:00 Intake and Output: 12/31/18 01/01/19 18:59 06:59 Output Total 600 100 Balance -600 -100 - Medications Medications: Current Medications Albuterol/Ipratropium (Duoneb 3 Mg/0.5 Mg (3 Ml) Ud) 3 ml INH RQ6 PRN PRN Reason: Shortness of Breath Arformoterol Tartrate (Brovana) 15 mcg INH RQ12@1000,2200 [facility] Last Admin: 12/31/18 21:58 Dose: 15 mcg Aspirin (Ecotrin) 81 mg PO DAILY [facility] Last Admin: 12/31/18 10:03 Dose: 81 mg Budesonide (Pulmicort Respules) 0.5 mg INH RQ12 [facility] Last Admin: 12/31/18 19:52 Dose: 0.5 mg Docusate Sodium (Colace) 100 mg PO DAILY [facility] Last Admin: 12/31/18 10:02 Dose: 100 mg Famotidine (Pepcid) 20 mg IVP DAILY [facility] Last Admin: 12/31/18 10:03 Dose: 20 mg Finasteride (Proscar) 5 mg PO DAILY [facility] Last Admin: 12/31/18 10:12 Dose: 5 mg Furosemide (Lasix) 40 mg IVP BID [facility] Last Admin: 12/30/18 19:03 Dose: 40 mg Heparin Sodium (Porcine) (Heparin) 5,000 units SC Q8 [facility] Last Admin: 12/31/18 22:25 Dose: 5,000 units Ipratropium [place] (Atrovent) 0.5 mg IH RQID [facility] Last Admin: 12/31/18 21:58 Dose: 0.5 mg Levothyroxine Sodium (Synthroid) 25 mcg PO DAILY@0630 [facility] Last Admin: 12/31/18 06:19 Dose: 25 mcg Methylprednisolone (Solu-Medrol) 40 mg IVP DAILY [facility] Last Admin: 12/31/18 10:13 Dose: 40 mg Metoprolol Succinate (Toprol Xl) 50 mg PO DAILY [facility] Last Admin: 12/31/18 10:12 Dose: 50 mg Pantoprazole Sodium (Protonix Ec Tab) 40 mg PO DAILY [facility] Last Admin: 12/31/18 10:02 Dose: 40 mg Phenazopyridine HCl (Pyridium) 100 mg PO PC [facility] Last Admin: 12/31/18 17:38 Dose: 100 mg Polyethylene Glycol (Miralax) 17 gm PO DAILY [facility] Last Admin: 12/31/18 10:04 Dose: 17 gm Rosuvastatin Calcium (Crestor) 40 mg PO HS [facility] Last Admin: 12/31/18 22:22 Dose: 40 mg Tamsulosin HCl (Flomax) 0.4 mg PO BID [facility] Last Admin: 12/31/18 22:22 Dose: 0.4 mg Zolpidem Tartrate (Ambien) 5 mg PO HS [facility] Last Admin: 12/31/18 22:22 Dose: 5 mg - Labs Labs: 12/31/18 08:42 12/31/18 08:40 PT 11.8 SECONDS (9.7-12.2) 12/29/18 09:15 INR 1.1 12/29/18 09:15 APTT 35.0 SECONDS (21-34) H 12/29/18 09:15 - Constitutional Appears: Non-toxic, No Acute Distress - Eye Exam Eye Exam: Normal appearance. absent: Scleral icterus - Respiratory Exam Respiratory Exam: Clear to Ausculation Bilateral. absent: Respiratory Distress - Cardiovascular Exam Cardiovascular Exam: Irregular Rhythm. absent: Rubs - GI/Abdominal Exam GI & Abdominal Exam: Soft. absent: Distended, Tenderness - Exam Additional comments: gardner draining well; - Extremities Exam Additional comments: mild b/l lower leg edema (improved); - Neurological Exam Neurological Exam: Alert, Awake - Psychiatric Exam Psychiatric exam: Normal Mood. absent: Agitated - Skin Skin Exam: Warm. absent: Cyanosis Assessment and Plan (1) Acute kidney injury Assessment & Plan: Renal function still not improved after gardner placed 2 days ago in the setting of chronic partial bladder obstruction with b/l hydronephrosis; continues to have very brisk urine output that is NOT BEING DOCUMENTED accurately (gardner was emptied shortly before my encounter and already has 150 cc in a matter of less than half hour); concern that we are not replacing excessive urinary losses and pre-renal state may be ensuing; -Nursing staff informed of need for accurate I/O; -Avoid nephrotoxic agents; Status: Acute (2) Obstructive uropathy Assessment & Plan: Secondary to enlarged prostate; -continue with flomax 0.4 mg bid and finasteride; will need to maintain gardner until a definitive procedure can be done to relieve prostate obstruction; Status: Acute (3) CHF exacerbation Assessment & Plan: Symptoms overall improved; holding lasix as patient is having significant neg fluid balances without it; Status: Acute
[2019-01-01] MEDS: Levothyroxine 25 MCG TAB PO SCH (05:56)
--- NOTE | 2019-01-01 06:51 | CP.PCM.PN ---
<Ebenezer Ortega M - Last Filed: 01/01/19 11:20> Subjective - Date & Time of Evaluation Date of Evaluation: 01/01/19 Time of Evaluation: 07:30 - Subjective Subjective: Medicine progress note for Dr. An. Pt seen and examined at bedside. Pt sitting in chair comfortably. Patient reports having no bowel movement for the past 3-4 days. Pt denies headaches, vision changes, fevers, chills, chest pain, SOB, cough, abdominal pain. Pt sc heduled for cysto with Dr. More today Objective - Vital Signs/Intake and Output Vital Signs (last 24 hours): Temp Pulse Resp BP Pulse Ox 98.5 F 74 20 123/80 98 12/31/18 23:30 01/01/19 04:11 12/31/18 23:30 12/31/18 23:30 12/31/18 23:30 Intake and Output: 12/31/18 01/01/19 18:59 06:59 Intake Total 400 Output Total 600 1200 Balance -600 -800 - Medications Medications: Current Medications Albuterol/Ipratropium (Duoneb 3 Mg/0.5 Mg (3 Ml) Ud) 3 ml INH RQ6 PRN PRN Reason: Shortness of Breath Arformoterol Tartrate (Brovana) 15 mcg INH RQ12@1000,2200 [facility] Last Admin: 12/31/18 21:58 Dose: 15 mcg Aspirin (Ecotrin) 81 mg PO DAILY [facility] Last Admin: 12/31/18 10:03 Dose: 81 mg Budesonide (Pulmicort Respules) 0.5 mg INH RQ12 [facility] Last Admin: 12/31/18 19:52 Dose: 0.5 mg Docusate Sodium (Colace) 100 mg PO DAILY [facility] Last Admin: 12/31/18 10:02 Dose: 100 mg Famotidine (Pepcid) 20 mg IVP DAILY [facility] Last Admin: 12/31/18 10:03 Dose: 20 mg Finasteride (Proscar) 5 mg PO DAILY [facility] Last Admin: 12/31/18 10:12 Dose: 5 mg Furosemide (Lasix) 40 mg IVP BID [facility] Last Admin: 12/30/18 19:03 Dose: 40 mg Heparin Sodium (Porcine) (Heparin) 5,000 units SC Q8 [facility] Last Admin: 01/01/19 05:56 Dose: 5,000 units Ipratropium [place] (Atrovent) 0.5 mg IH RQID [facility] Last Admin: 12/31/18 21:58 Dose: 0.5 mg Levothyroxine Sodium (Synthroid) 25 mcg PO DAILY@0630 [facility] Last Admin: 01/01/19 05:56 Dose: 25 mcg Methylprednisolone (Solu-Medrol) 40 mg IVP DAILY [facility] Last Admin: 12/31/18 10:13 Dose: 40 mg Metoprolol Succinate (Toprol Xl) 50 mg PO DAILY [facility] Last Admin: 12/31/18 10:12 Dose: 50 mg Pantoprazole Sodium (Protonix Ec Tab) 40 mg PO DAILY [facility] Last Admin: 12/31/18 10:02 Dose: 40 mg Phenazopyridine HCl (Pyridium) 100 mg PO PC [facility] Last Admin: 12/31/18 17:38 Dose: 100 mg Polyethylene Glycol (Miralax) 17 gm PO DAILY [facility] Last Admin: 12/31/18 10:04 Dose: 17 gm Rosuvastatin Calcium (Crestor) 40 mg PO HS [facility] Last Admin: 12/31/18 22:22 Dose: 40 mg Tamsulosin HCl (Flomax) 0.4 mg PO BID [facility] Last Admin: 12/31/18 22:22 Dose: 0.4 mg Zolpidem Tartrate (Ambien) 5 mg PO HS [facility] Last Admin: 12/31/18 22:22 Dose: 5 mg - Labs Labs: 12/31/18 08:42 12/31/18 08:40 PT 11.8 SECONDS (9.7-12.2) 12/29/18 09:15 INR 1.1 12/29/18 09:15 APTT 35.0 SECONDS (21-34) H 12/29/18 09:15 - Constitutional Appears: Non-toxic, No Acute Distress - Head Exam Head Exam: NORMAL INSPECTION - Eye Exam Eye Exam: EOMI, Normal appearance - ENT Exam ENT Exam: Mucous Membranes Moist - Respiratory Exam Respiratory Exam: Decreased Breath Sounds, NORMAL BREATHING PATTERN - Cardiovascular Exam Cardiovascular Exam: +S1, +S2 - GI/Abdominal Exam GI & Abdominal Exam: Soft, Normal Bowel Sounds - Exam Additional comments: gardner in place, producing urine - Back Exam Back Exam: absent: CVA tenderness (L), CVA tenderness (R) - Neurological Exam Neurological Exam: Alert, Awake, Oriented x3 - Psychiatric Exam Psychiatric exam: Normal Affect, Normal Mood - Skin Skin Exam: Dry, Intact, Normal Color, Warm Assessment and Plan - Assessment and Plan (Free Text) Assessment: 83 M w/ PMhx of obstructive uropathy w/ hydronephrosos, presented with CHF exacerbation along with obstructive uropathy. S/p gardner on 12/29, lasix held tonight due to negative fluid balance. Plan: Acute on chronic systolic heart failure - ECHO 12/13/18 - EF of 40-45%; systolic fxn moderately impaired, moderate aortic stenosis - BNP on admission 10501i (previously 3000s) - CXRAY: severe pulmonary venous congestion - Lasix 40 IV held due to negative balance - strict I/O's - daily weights - fluid restrict - c/w home medication metoprolol xl 50 mg daily BPH with partial obstructive uropathy - Gardner inplace - renal ultrasound: moderate hydronephrosis, distended bladder, prostate volume 75 ml - Urine culture negative - F/u urology, Dr. Chapito de la cruz - c/w home medication flomax 0.4 mg PO BID UTI - 14 wbc, leuko esterase 2+ - U/C negative - continue ceftriaxone 1gm daily ppx for urological procedure 01/01 Acute on chronic renal failure - Cr 2.8, GFR 20s, previously similar numbers - renal ultrasound: moderate hydronephrosis, distended bladder, prostate volume 75 ml - f/u nephro, Dr. Cammie de la cruz History of COPD - c/w home medications spiriva - start solu-medrol 40 mg IVP daily - duonebs Q6H PRN History of Coronary Artery Disease History of Aortic Stenosis - c/w aspirin 81 mg daily, metoprolol succinate 50 mg Po doug - rosuvastain reduced to 10 daily due to GFR - F/u cardio, Dr. Lee de la cruz History of hypothyrodism - c/w levothyroxine 25 mcg daily Constipation - last reported bowel movement 5 days prior - c/w home medication colace 100 mg daily and miralax - will consider giving lactulose post procedure PPx - DVT: heparin 5000 units daily - GI: HHD, pepcid 20 mg daily <Jose Luis An - Last Filed: 01/01/19 14:00> Objective - Vital Signs/Intake and Output Vital Signs (last 24 hours): Temp Pulse Resp BP Pulse Ox 97.6 F 65 18 90/60 L 100 01/01/19 13:06 01/01/19 13:06 01/01/19 13:06 01/01/19 13:06 01/01/19 13:06 Intake and Output: 01/01/19 01/01/19 06:59 18:59 Intake Total 400 200 Output Total 1200 Balance -800 200 - Medications Medications: Current Medications Albuterol/Ipratropium (Duoneb 3 Mg/0.5 Mg (3 Ml) Ud) 3 ml INH RQ6 PRN PRN Reason: Shortness of Breath Arformoterol Tartrate (Brovana) 15 mcg INH RQ12@1000,2200 [facility] Last Admin: 01/01/19 09:23 Dose: Not Given Aspirin (Ecotrin) 81 mg PO DAILY [facility] Last Admin: 01/01/19 09:54 Dose: 81 mg Budesonide (Pulmicort Respules) 0.5 mg INH RQ12 [facility] Last Admin: 01/01/19 07:35 Dose: 0.5 mg Docusate Sodium (Colace) 100 mg PO DAILY [facility] Last Admin: 01/01/19 09:54 Dose: 100 mg Famotidine (Pepcid) 20 mg IVP DAILY [facility] Last Admin: 01/01/19 09:55 Dose: 20 mg Finasteride (Proscar) 5 mg PO DAILY [facility] Last Admin: 01/01/19 09:54 Dose: 5 mg Furosemide (Lasix) 40 mg IVP BID [facility] Last Admin: 12/30/18 19:03 Dose: 40 mg Heparin Sodium (Porcine) (Heparin) 5,000 units SC Q8 [facility] Last Admin: 01/01/19 05:56 Dose: 5,000 units Ceftriaxone Sodium 1 gm/ (Sodium Chloride) 100 mls @ 100 mls/hr IVPB DAILY [facility]; Protocol Last Admin: 01/01/19 13:04 Dose: 100 mls/hr Ipratropium [place] (Atrovent) 0.5 mg IH RQID [facility] Last Admin: 01/01/19 11:23 Dose: 0.5 mg Levothyroxine Sodium (Synthroid) 25 mcg PO DAILY@0630 [facility] Last Admin: 01/01/19 05:56 Dose: 25 mcg Methylprednisolone (Solu-Medrol) 40 mg IVP DAILY [facility] Last Admin: 01/01/19 09:55 Dose: 40 mg Metoprolol Succinate (Toprol Xl) 50 mg PO DAILY [facility] Last Admin: 01/01/19 09:54 Dose: 50 mg Pantoprazole Sodium (Protonix Ec Tab) 40 mg PO DAILY [facility] Last Admin: 01/01/19 09:54 Dose: 40 mg Phenazopyridine HCl (Pyridium) 100 mg PO PC [facility] Last Admin: 01/01/19 13:02 Dose: 100 mg Polyethylene Glycol (Miralax) 17 gm PO DAILY [facility] Last Admin: 01/01/19 09:55 Dose: 17 gm Rosuvastatin Calcium (Crestor) 10 mg PO [facility] Tamsulosin HCl (Flomax) 0.4 mg PO BID [facility] Last Admin: 01/01/19 09:53 Dose: 0.4 mg Zolpidem Tartrate (Ambien) 5 mg PO HS [facility] Last Admin: 12/31/18 22:22 Dose: 5 mg - Labs Labs: 01/01/19 07:44 01/01/19 07:44 PT 11.8 SECONDS (9.7-12.2) 12/29/18 09:15 INR 1.1 12/29/18 09:15 APTT 35.0 SECONDS (21-34) H 12/29/18 09:15 Attending/Attestation - Attestation I have personally seen and examined this patient.: Yes I have fully participated in the care of the patient.: Yes I have reviewed all pertinent clinical information, including history, physical exam and plan: Yes Notes (Text): 01/01/19 13:58 Medical attending: Patient was seen and examined by me. Agree with the above note by the resident The patient was not in any acute distress when we came and saw. He remarked he felt better ever since having the gardner placed as it gave him a lot of relief. The patient is pending urological procedures later for this afternoon and he is aware of this. On exam he sounded clear on the lung pandya, there is still some edema that is bilateral and non pitting - the patient remarks that this is much better than when he came in. The lasix is temporarily placed on hold by nephrology Jose Luis An
[2019-01-01] MEDS: Ipratropium 0.02% Inhal Soln (0.5 mg/2.5 ml) UD IH SCH ×4 (07:35→20:59)
[2019-01-01] MEDS: Budesonide 0.5 mg/2 ml Inhal Susp UD INH SCH ×2 (07:35→20:59)
[2019-01-01 07:55] LABS: BASO # 0.1 K/uL (0.0-0.2); BASO % 0.8 % (0.0-2.0); EOS # 0.3 K/uL (0.0-0.7); EOS % 5.1 % (0.0-4.0); HEMOGLOBIN 9.1 g/dL (12.0-18.0); LYMPH # 1.8 K/uL (1.0-4.3); LYMPH % 28.9 % (20.0-40.0); MEAN CELL VOLUME 96.2 fL (80.0-94.0); MEAN CORPUSCULAR HGB CONC 34.3 g/dL (33.0-37.0); MEAN PLATELET VOLUME 8.6 fL (7.2-11.7); MONO # 0.4 K/uL (0.0-0.8); MONO % 6.7 % (0.0-10.0); NEUT # 3.6 K/uL (1.8-7.0); NEUT % 58.5 % (50.0-75.0); NRBC % 0.1 % (0.0-2.0); RBC 2.77 Mil/uL (4.40-5.90); RED CELL DISTRIBUTION WIDTH 14.4 % (11.5-14.5); WHITE BLOOD COUNT 6.1 K/uL (4.8-10.8)
[2019-01-01 08:16] LABS: ALB/GLOB RATIO 1.5 (1.0-2.1); ALBUMIN 3.9 g/dL (3.5-5.0); CALCIUM 8.5 mg/dl (8.6-10.4)
[2019-01-01] MEDS ORDERED: Potassium Chloride 20 mEq ER Tab PO ONE (09:08)
[2019-01-01] MEDS ORDERED: Magnesium Sulfate 1 gm in D5W 1 GM/100 ML BAG IVPB ONE (09:08)
--- NOTE | 2019-01-01 09:13 | CP.PCM.PN ---
Subjective - Date & Time of Evaluation Date of Evaluation: 01/01/19 Time of Evaluation: 09:12 - Subjective Subjective: SOB improving Cr 2.3 lasix held 2' to -ve fluid balance plan for cath once renal function stable Objective - Vital Signs/Intake and Output Vital Signs (last 24 hours): Temp Pulse Resp BP Pulse Ox 98 F 76 20 101/60 97 01/01/19 07:00 01/01/19 07:00 01/01/19 07:00 01/01/19 07:00 01/01/19 07:00 Intake and Output: 01/01/19 01/01/19 06:59 18:59 Intake Total 400 Output Total 1200 Balance -800 - Medications Medications: Current Medications Albuterol/Ipratropium (Duoneb 3 Mg/0.5 Mg (3 Ml) Ud) 3 ml INH RQ6 PRN PRN Reason: Shortness of Breath Arformoterol Tartrate (Brovana) 15 mcg INH RQ12@1000,2200 [facility] Last Admin: 12/31/18 21:58 Dose: 15 mcg Aspirin (Ecotrin) 81 mg PO DAILY [facility] Last Admin: 12/31/18 10:03 Dose: 81 mg Budesonide (Pulmicort Respules) 0.5 mg INH RQ12 [facility] Last Admin: 12/31/18 19:52 Dose: 0.5 mg Docusate Sodium (Colace) 100 mg PO DAILY [facility] Last Admin: 12/31/18 10:02 Dose: 100 mg Famotidine (Pepcid) 20 mg IVP DAILY [facility] Last Admin: 12/31/18 10:03 Dose: 20 mg Finasteride (Proscar) 5 mg PO DAILY [facility] Last Admin: 12/31/18 10:12 Dose: 5 mg Furosemide (Lasix) 40 mg IVP BID [facility] Last Admin: 12/30/18 19:03 Dose: 40 mg Heparin Sodium (Porcine) (Heparin) 5,000 units SC Q8 [facility] Last Admin: 01/01/19 05:56 Dose: 5,000 units Magnesium Sulfate/Dextrose (Magnesium Sulfate 1 Gm/100 Ml D5w) 1 gm in 100 mls @ 100 mls/hr IVPB ONCE ONE Stop: 01/01/19 10:07 Ipratropium [place] (Atrovent) 0.5 mg IH RQID [facility] Last Admin: 12/31/18 21:58 Dose: 0.5 mg Levothyroxine Sodium (Synthroid) 25 mcg PO DAILY@0630 [facility] Last Admin: 01/01/19 05:56 Dose: 25 mcg Methylprednisolone (Solu-Medrol) 40 mg IVP DAILY [facility] Last Admin: 12/31/18 10:13 Dose: 40 mg Metoprolol Succinate (Toprol Xl) 50 mg PO DAILY [facility] Last Admin: 12/31/18 10:12 Dose: 50 mg Pantoprazole Sodium (Protonix Ec Tab) 40 mg PO DAILY [facility] Last Admin: 12/31/18 10:02 Dose: 40 mg Phenazopyridine HCl (Pyridium) 100 mg PO PC [facility] Last Admin: 12/31/18 17:38 Dose: 100 mg Polyethylene Glycol (Miralax) 17 gm PO DAILY [facility] Last Admin: 12/31/18 10:04 Dose: 17 gm Rosuvastatin Calcium (Crestor) 10 mg PO [facility] Tamsulosin HCl (Flomax) 0.4 mg PO BID [facility] Last Admin: 12/31/18 22:22 Dose: 0.4 mg Zolpidem Tartrate (Ambien) 5 mg PO HS [facility] Last Admin: 12/31/18 22:22 Dose: 5 mg - Labs Labs: 01/01/19 07:44 01/01/19 07:44 PT 11.8 SECONDS (9.7-12.2) 12/29/18 09:15 INR 1.1 12/29/18 09:15 APTT 35.0 SECONDS (21-34) H 12/29/18 09:15 - Constitutional Appears: Well - Head Exam Head Exam: ATRAUMATIC, NORMAL INSPECTION, NORMOCEPHALIC - Eye Exam Eye Exam: EOMI, Normal appearance, PERRL Pupil Exam: NORMAL ACCOMODATION, PERRL - ENT Exam ENT Exam: Mucous Membranes Moist, Normal Exam - Neck Exam Neck Exam: Full ROM, Normal Inspection. absent: Lymphadenopathy - Respiratory Exam Respiratory Exam: Clear to Ausculation Bilateral, Rales, NORMAL BREATHING PATTERN - Cardiovascular Exam Cardiovascular Exam: REGULAR RHYTHM, +S1, +S2, Murmur - GI/Abdominal Exam GI & Abdominal Exam: Soft, Normal Bowel Sounds. absent: Tenderness - Extremities Exam Extremities Exam: Full ROM, Normal Capillary Refill, Normal Inspection. absent: Joint Swelling, Pedal Edema - Back Exam Back Exam: NORMAL INSPECTION - Neurological Exam Neurological Exam: Alert, Awake, CN II-XII Intact, Normal Gait, Oriented x3 - Psychiatric Exam Psychiatric exam: Normal Affect, Normal Mood - Skin Skin Exam: Dry, Intact, Normal Color, Warm Assessment and Plan (1) CHF exacerbation Status: Acute (2) Dyspnea Status: Acute (3) Renal insufficiency Status: Acute (4) Aortic stenosis Status: Acute
[2019-01-01] MEDS: Arformoterol 15 mcg/2 ml Inh Sol INH SCH ×2 (09:23→21:00)
[2019-01-01] MEDS: Metoprolol Succinate 50 mg XL Tab PO SCH (09:54)
[2019-01-01] MEDS: Pantoprazole 40 mg EC Tab PO SCH (09:54)
[2019-01-01] MEDS: MethylPREDNISolone 40 mg Vial IVP SCH (09:55)
[2019-01-01] MEDS: POLYETHYLENE GLYCOL 3350 17 GM/Dose PACKET PO SCH (09:55)
--- NOTE | 2019-01-01 11:25 | CP.PCM.PN ---
Subjective - Date & Time of Evaluation Date of Evaluation: 01/01/19 Time of Evaluation: 09:30 - Subjective Subjective: Nephro Progress Note for Dr. Bonds Service Flip Pickering DO, IM PGY-3 Patient seen and examined at bedside. Over the weekend, became amenable to gardner placement, has put out ~5L since. Today at bedside, no acute complaints. Reports still feeling like he has to urinate more, but denies pain, burning sensation, chest pain, shortness of breath, or fevers/chills. Swelling in bilateral LE improved. Objective - Vital Signs/Intake and Output Vital Signs (last 24 hours): Temp Pulse Resp BP Pulse Ox 98 F 76 20 101/60 97 01/01/19 07:00 01/01/19 07:00 01/01/19 07:00 01/01/19 07:00 01/01/19 07:00 Intake and Output: 01/01/19 01/01/19 06:59 18:59 Intake Total 400 Output Total 1200 Balance -800 - Medications Medications: Current Medications Albuterol/Ipratropium (Duoneb 3 Mg/0.5 Mg (3 Ml) Ud) 3 ml INH RQ6 PRN PRN Reason: Shortness of Breath Arformoterol Tartrate (Brovana) 15 mcg INH RQ12@1000,2200 [facility] Last Admin: 12/31/18 21:58 Dose: 15 mcg Aspirin (Ecotrin) 81 mg PO DAILY [facility] Last Admin: 01/01/19 09:54 Dose: 81 mg Budesonide (Pulmicort Respules) 0.5 mg INH RQ12 [facility] Last Admin: 12/31/18 19:52 Dose: 0.5 mg Docusate Sodium (Colace) 100 mg PO DAILY [facility] Last Admin: 01/01/19 09:54 Dose: 100 mg Famotidine (Pepcid) 20 mg IVP DAILY [facility] Last Admin: 01/01/19 09:55 Dose: 20 mg Finasteride (Proscar) 5 mg PO DAILY [facility] Last Admin: 01/01/19 09:54 Dose: 5 mg Furosemide (Lasix) 40 mg IVP BID [facility] Last Admin: 12/30/18 19:03 Dose: 40 mg Heparin Sodium (Porcine) (Heparin) 5,000 units SC Q8 [facility] Last Admin: 01/01/19 05:56 Dose: 5,000 units Ipratropium [place] (Atrovent) 0.5 mg IH RQID [facility] Last Admin: 12/31/18 21:58 Dose: 0.5 mg Levothyroxine Sodium (Synthroid) 25 mcg PO DAILY@0630 [facility] Last Admin: 01/01/19 05:56 Dose: 25 mcg Methylprednisolone (Solu-Medrol) 40 mg IVP DAILY [facility] Last Admin: 01/01/19 09:55 Dose: 40 mg Metoprolol Succinate (Toprol Xl) 50 mg PO DAILY [facility] Last Admin: 01/01/19 09:54 Dose: 50 mg Pantoprazole Sodium (Protonix Ec Tab) 40 mg PO DAILY [facility] Last Admin: 01/01/19 09:54 Dose: 40 mg Phenazopyridine HCl (Pyridium) 100 mg PO PC [facility] Last Admin: 01/01/19 09:53 Dose: 100 mg Polyethylene Glycol (Miralax) 17 gm PO DAILY [facility] Last Admin: 01/01/19 09:55 Dose: 17 gm Rosuvastatin Calcium (Crestor) 10 mg PO [facility] Tamsulosin HCl (Flomax) 0.4 mg PO BID [facility] Last Admin: 01/01/19 09:53 Dose: 0.4 mg Zolpidem Tartrate (Ambien) 5 mg PO HS [facility] Last Admin: 12/31/18 22:22 Dose: 5 mg - Labs Labs: 01/01/19 07:44 01/01/19 07:44 PT 11.8 SECONDS (9.7-12.2) 12/29/18 09:15 INR 1.1 12/29/18 09:15 APTT 35.0 SECONDS (21-34) H 12/29/18 09:15 - Additional Findings Additional findings: - Constitutional Appears: Non-toxic, No Acute Distress - Head Exam Head Exam: ATRAUMATIC, NORMAL INSPECTION, NORMOCEPHALIC - Eye Exam Eye Exam: Normal appearance. absent: Conjunctival injection, Scleral icterus Pupil Exam: absent: Irregular, Unequal - ENT Exam ENT Exam: Mucous Membranes Moist - Neck Exam Neck Exam: Full ROM, Normal Inspection - Respiratory Exam Respiratory Exam: Clear to Ausculation Bilateral, NORMAL BREATHING PATTERN. absent: Accessory Muscle Use, Chest Wall Tenderness, Decreased Breath Sounds, Rales, Rhonchi, Wheezes - Cardiovascular Exam Cardiovascular Exam: REGULAR RHYTHM, RRR, +S1, +S2. absent: Bradycardia, T achycardia, Irregular Rhythm, JVD, +S4 - GI/Abdominal Exam GI & Abdominal Exam: Soft, Normal Bowel Sounds. absent: Distended, Firm, Guarding, Rigid, Tenderness - Exam Exam: gardner in place, draining clear yellow urine - Back Exam Back Exam: absent: CVA tenderness (L), CVA tenderness (R) - Extremities Exam Extremities exam: Positive for: pedal edema (+1 - +2 pitting edema from feet to bottom 1/2 of bilateral shins), tenderness (tenderness when assessing degree of LE edema, but no calf tenderness). Negative for: calf tenderness, pedal pulses present (unable to palpate through pedal edema) - Neurological Exam awake and alert, following all commands appropriately, moving all extremities spontaneously - Psychiatric Exam Psychiatric exam: Normal Affect, Normal Mood - Skin Skin Exam: Dry, Intact, Normal Color, Warm Assessment and Plan - Assessment and Plan (Free Text) Assessment: This is an 83yo M with PMH of COPD, CAD s/p CABG, Severe requiring TAVR, and BPH with obstructive uropathy recently s/p microwave thermopathy who presented with complaint of SOB. Nephro was consulted for elevated Cr in setting of obstructive uropathy. Plan: 1) Worsening Cr 2/2 obstructive uropathy 2) COPD 3) CAD s/p CABG 4) Severe requiring TAVR 5) BPH requiring gardner - pt still refusing 6) Shortness of breath 7) Anemia 8) bilateral hydronephrosis -renal failure 2/2 obstructive uropathy; Cr 3.6 prior to microwave thermopathy, 2.3 today, baseline per prior charting is 1.4 Avoid nephrotoxic agents as feasible; BP previously well controlled, can avoid use of ACEi/ARBs at this time Continue Flomax BID and finasteride Obstruction resolved with gardner placement, but due to brisk urine output (net negative 4.7L this admit) may have KT 2/2 pre-renal state IV Lasix 40mg BID on hold Recommend 1/2 NS at 60cc/hr for gentle hydration -Pt will need likely TAVR prior to any TURP procedure Echo from last admission notable for EF 40-45%, mild LVH, moderate , mild AR, mild MR Patient reviewed and discussed with attending, Dr. Bonds
[2019-01-01 14:21] VITALS: RESP 20
[2019-01-01] MEDS ORDERED: Mineral Oil Enema 135 ml PR ONE (16:47)
[2019-01-01] MEDS: Sodium Chloride 0.45% 1,000 ML IV SCH (18:24)
[2019-01-01] MEDS: Fluticasone Nasal 50 mcg/Spray NAS SCH (22:37)
[2019-01-02] MEDS: Levothyroxine 25 MCG TAB PO SCH (06:19)
--- NOTE | 2019-01-02 06:47 | CP.PCM.PN ---
<OrtegaCatrinas M - Last Filed: 01/02/19 17:09> Subjective - Date & Time of Evaluation Date of Evaluation: 01/02/19 Time of Evaluation: 07:55 - Subjective Subjective: Medicine progress note for hospitalist Dr. An Pt seen & examined at bedside. Translating services used, [place] [id number]. Pt states he feels much better, initially felt pain with gardner in AM; however, states after nursing staff made adjustments, he feels normal. Pt is stating he would like 2nd referral from a urologist. Reports some right leg pain. Denies headaches, vision changes, chest pain, SOB, cough, abdominal pain, nausea, vomiting, fevers, chills. Objective - Vital Signs/Intake and Output Vital Signs (last 24 hours): Temp Pulse Resp BP Pulse Ox 98 F 79 20 116/71 99 01/01/19 23:45 01/02/19 01:00 01/01/19 23:45 01/01/19 23:45 01/01/19 23:45 Intake and Output: 01/01/19 01/02/19 18:59 06:59 Intake Total 1000 700 Output Total 350 1300 Balance 650 -600 - Medications Medications: Current Medications Albuterol/Ipratropium (Duoneb 3 Mg/0.5 Mg (3 Ml) Ud) 3 ml INH RQ6 PRN PRN Reason: Shortness of Breath Last Admin: 01/02/19 03:18 Dose: 3 ml Arformoterol Tartrate (Brovana) 15 mcg INH RQ12@1000,2200 [facility] Last Admin: 01/01/19 21:00 Dose: 15 mcg Aspirin (Ecotrin) 81 mg PO DAILY [facility] Last Admin: 01/01/19 09:54 Dose: 81 mg Budesonide (Pulmicort Respules) 0.5 mg INH RQ12 [facility] Last Admin: 01/01/19 20:59 Dose: 0.5 mg Docusate Sodium (Colace) 100 mg PO DAILY [facility] Last Admin: 01/01/19 09:54 Dose: 100 mg Famotidine (Pepcid) 20 mg IVP DAILY [facility] Last Admin: 01/01/19 09:55 Dose: 20 mg Finasteride (Proscar) 5 mg PO DAILY [facility] Last Admin: 01/01/19 09:54 Dose: 5 mg Fluticasone Propionate (Flonase) 1 spr JULIUS BID [facility] Last Admin: 01/01/19 22:37 Dose: Not Given Furosemide (Lasix) 40 mg IVP BID [facility] Last Admin: 12/30/18 19:03 Dose: 40 mg Heparin Sodium (Porcine) (Heparin) 5,000 units SC Q8 [facility] Last Admin: 01/02/19 06:20 Dose: 5,000 units Ceftriaxone Sodium 1 gm/ (Sodium Chloride) 100 mls @ 100 mls/hr IVPB DAILY [facility]; Protocol Last Admin: 01/01/19 13:04 Dose: 100 mls/hr Sodium Chloride (Sodium Chloride 0.45%) 1,000 mls @ 60 mls/hr IV .[id number] [facility] Last Admin: 01/01/19 18:24 Dose: 60 mls/hr Ipratropium Valdez (Atrovent) 0.5 mg IH RQID [facility] Last Admin: 01/01/19 20:59 Dose: 0.5 mg Levothyroxine Sodium (Synthroid) 25 mcg PO DAILY@0630 [facility] Last Admin: 01/02/19 06:19 Dose: 25 mcg Methylprednisolone (Solu-Medrol) 40 mg IVP DAILY [facility] Last Admin: 01/01/19 09:55 Dose: 40 mg Metoprolol Succinate (Toprol Xl) 50 mg PO DAILY [facility] Last Admin: 01/01/19 09:54 Dose: 50 mg Pantoprazole Sodium (Protonix Ec Tab) 40 mg PO DAILY [facility] Last Admin: 01/01/19 09:54 Dose: 40 mg Phenazopyridine HCl (Pyridium) 100 mg PO PC [facility] Last Admin: 01/01/19 17:41 Dose: 100 mg Polyethylene Glycol (Miralax) 17 gm PO DAILY [facility] Last Admin: 01/01/19 09:55 Dose: 17 gm Rosuvastatin Calcium (Crestor) 10 mg PO HS [facility] Last Admin: 01/01/19 22:07 Dose: 10 mg Tamsulosin HCl (Flomax) 0.4 mg PO BID [facility] Last Admin: 01/01/19 17:41 Dose: 0.4 mg Zolpidem Tartrate (Ambien) 5 mg PO HS [facility] Last Admin: 01/01/19 23:00 Dose: 5 mg - Labs Labs: 01/01/19 07:44 01/01/19 07:44 PT 11.8 SECONDS (9.7-12.2) 12/29/18 09:15 INR 1.1 12/29/18 09:15 APTT 35.0 SECONDS (21-34) H 12/29/18 09:15 - Constitutional Appears: Non-toxic, No Acute Distress - Head Exam Head Exam: NORMAL INSPECTION - Eye Exam Eye Exam: Normal appearance - ENT Exam ENT Exam: Mucous Membranes Moist - Respiratory Exam Respiratory Exam: Clear to Ausculation Bilateral, NORMAL BREATHING PATTERN. absent: Rales, Rhonchi, Wheezes - Cardiovascular Exam Cardiovascular Exam: +S1, +S2, Murmur Additional comments: 2nd intercoastal murmur, consistent w/ aortic stenosis - GI/Abdominal Exam GI & Abdominal Exam: Soft, Normal Bowel Sounds. absent: Firm, Guarding, Rigid - Exam Additional comments: gardner in place, draining urine - Extremities Exam Extremities Exam: Pedal Edema Additional comments: trace, improved from admission - Back Exam Back Exam: absent: CVA tenderness (L), CVA tenderness (R) - Neurological Exam Neurological Exam: Alert, Awake, Oriented x3 - Psychiatric Exam Psychiatric exam: Normal Affect, Normal Mood - Skin Skin Exam: Dry, Intact, Normal Color, Warm Assessment and Plan - Assessment and Plan (Free Text) Assessment: 83 M w/ PMhx of obstructive uropathy w/ hydronephrosos, presented with CHF exacerbation along with obstructive uropathy. S/p gardner on 12/29, lasix held tonight due to negative fluid balance, on gentle hydartion for concern from pre- renal failure, cardiac cath once jordan improves/resolves Plan: Acute on chronic systolic heart failure - ECHO 12/13/18 - EF of 40-45%; systolic fxn moderately impaired, moderate aortic stenosis - BNP on admission 82392x (previously 3000s) - CXRAY: severe pulmonary venous congestion - Lasix 40 IV held due to negative balance - strict I/O's - daily weights - fluid restrict - c/w home medication metoprolol xl 50 mg daily - per cardio, consider cardiac cath once AK improves BPH with partial obstructive uropathy - Gardner inplace - renal ultrasound: moderate hydronephrosis, distended bladder, prostate volume 75 ml - Urine culture negative - F/u urology, Dr. Chapito de la cruz - pt offered suprapubic catheter - will discuss w/ pt regarding 2nd opinion - c/w home medication flomax 0.4 mg PO BID, finasteride 5mg PO daily Acute on chronic renal failure - Cr 2.8, GFR 20s, previously similar numbers - renal ultrasound: moderate hydronephrosis, distended bladder, prostate volume 75 ml - f/u nephro, Dr. Cammie de la cruz - NS @ 60 cc/hr due to possible pre-renal cause - avoid nephrotoxic drugs History of COPD - c/w home medications spiriva - start solu-medrol 40 mg IVP daily - duonebs Q6H PRN History of Coronary Artery Disease History of Aortic Stenosis - c/w aspirin 81 mg daily, metoprolol succinate 50 mg Po doug - rosuvastain reduced to 10 daily due to GFR - F/u cardio, Dr. Lee de la cruz - plan for cath when JORDAN improves History of hypothyrodism - c/w levothyroxine 25 mcg daily Constipation - last reported bowel movement 5 days prior - c/w home medication colace 100 mg daily and miralax - will consider giving lactulose post procedure UTI - 14 wbc, leuko esterase 2+ - U/C negative - continue ceftriaxone 1gm daily ppx for possible urological procedure PPx - DVT: heparin 5000 units daily - GI: HHD, pepcid 20 mg daily Dispo: Monitor renal function with attempt of cardiac cath provided JODRAN improve. C/w gardner in place as patient/ family is requesting 2nd urology opinion for further management <Jose Luis An - Last Filed: 01/02/19 18:02> Objective - Vital Signs/Intake and Output Vital Signs (last 24 hours): Temp Pulse Resp BP Pulse Ox 97.6 F 66 20 119/69 100 01/02/19 15:59 01/02/19 17:35 01/02/19 15:59 01/02/19 15:59 01/02/19 15:59 Intake and Output: 01/02/19 01/02/19 06:59 18:59 Intake Total 700 730 Output Total 1300 850 Balance -600 -120 - Medications Medications: Current Medications Albuterol/Ipratropium (Duoneb 3 Mg/0.5 Mg (3 Ml) Ud) 3 ml INH RQ6 PRN PRN Reason: Shortness of Breath Last Admin: 01/02/19 03:18 Dose: 3 ml Arformoterol Tartrate (Brovana) 15 mcg INH RQ12@1000,2200 [facility] Last Admin: 01/02/19 11:46 Dose: 15 mcg Aspirin (Ecotrin) 81 mg PO DAILY [facility] Last Admin: 01/02/19 10:52 Dose: 81 mg Budesonide (Pulmicort Respules) 0.5 mg INH RQ12 [facility] Last Admin: 01/02/19 11:47 Dose: 0.5 mg Docusate Sodium (Colace) 100 mg PO DAILY [facility] Last Admin: 01/02/19 10:52 Dose: 100 mg Finasteride (Proscar) 5 mg PO DAILY [facility] Last Admin: 01/02/19 14:29 Dose: Not Given Fluticasone Propionate (Flonase) 1 spr JULIUS BID [facility] Last Admin: 01/02/19 17:14 Dose: 1 spr Furosemide (Lasix) 40 mg IVP BID [facility] Last Admin: 12/30/18 19:03 Dose: 40 mg Heparin Sodium (Porcine) (Heparin) 5,000 units SC Q8 [facility] Last Admin: 01/02/19 14:29 Dose: 5,000 units Ceftriaxone Sodium 1 gm/ (Sodium Chloride) 100 mls @ 100 mls/hr IVPB DAILY [facility]; Protocol Last Admin: 01/02/19 10:56 Dose: 100 mls/hr Sodium Chloride (Sodium Chloride 0.45%) 1,000 mls @ 60 mls/hr IV .[id number] [facility] Last Admin: 01/02/19 10:53 Dose: Not Given Ipratropium Valdez (Atrovent) 0.5 mg IH RQID [facility] Last Admin: 01/02/19 15:46 Dose: 0.5 mg Levothyroxine Sodium (Synthroid) 25 mcg PO DAILY@0630 [facility] Last Admin: 01/02/19 06:19 Dose: 25 mcg Lidocaine (Lidoderm) 1 ea TD DAILY PRN PRN Reason: Pain, severe (8-10) Methylprednisolone (Solu-Medrol) 40 mg IVP DAILY [facility] Last Admin: 01/02/19 10:53 Dose: 40 mg Metoprolol Succinate (Toprol Xl) 50 mg PO DAILY [facility] Last Admin: 01/02/19 11:02 Dose: 50 mg Pantoprazole Sodium (Protonix Ec Tab) 40 mg PO DAILY [facility] Last Admin: 01/02/19 10:52 Dose: 40 mg Phenazopyridine HCl (Pyridium) 100 mg PO PC [facility] Last Admin: 01/02/19 17:13 Dose: 100 mg Polyethylene Glycol (Miralax) 17 gm PO DAILY [facility] Last Admin: 01/02/19 10:53 Dose: 17 gm Rosuvastatin Calcium (Crestor) 10 mg PO HS [facility] Last Admin: 01/01/19 22:07 Dose: 10 mg Tamsulosin HCl (Flomax) 0.4 mg PO BID [facility] Last Admin: 01/02/19 17:13 Dose: 0.4 mg Zolpidem Tartrate (Ambien) 5 mg PO HS [facility] Last Admin: 01/01/19 23:00 Dose: 5 mg - Labs Labs: 01/02/19 07:14 01/02/19 07:14 PT 11.8 SECONDS (9.7-12.2) 12/29/18 09:15 INR 1.1 12/29/18 09:15 APTT 35.0 SECONDS (21-34) H 12/29/18 09:15 Attending/Attestation - Attestation I have personally seen and examined this patient.: Yes I have fully participated in the care of the patient.: Yes I have reviewed all pertinent clinical information, including history, physical exam and plan: Yes Notes (Text): Medical attending: Patient was seen and examined by me earlier in the morning. Reviewed the above note by the resident and agree with the above as well I spoke with the patient's daughter over the phone as well as later on she came in and we spoke in person in the afternoon. I had to draw out a diagram with both the heart, lungs, kidney, bladder and prostate to help the patient's daughter understand that he does have aortic valves disease that does need to be addressed. However to address that he would need cardiac catherizatrion which is not readily doable because his creatine is still high. I explained that it has come down from the 2.8 on Tuesday and this morning now 2.2 It should be noted that previously the patient was very reluctant to have gardner catheters placed in - however I explained to the daughter that he has obstruction and that the gardner is helping with the decrease in his creatine. Patient tells us he does feel much less pressure now that he has the gardner in. Discussed with cardiology today and nephrology and urology today. If the creatine comes down further then maybe he can have a cardiac catherization to see if he is a candidate for TAVRs. I had to draw this out on a piece of paper to help daughter understand. The patient's was present but not participating in the discussion. Daughter explains that it is difficult for the patient to understand a lot of what is happening because of language as well as some dementia. Currently the lasix remains on hold. He is being placed on slow IVF per nephrology at this time. Jose Luis An
[2019-01-02 07:35] LABS: BASO % 0.6 % (0.0-2.0); EOS # 0.2 K/uL (0.0-0.7); EOS % 3.7 % (0.0-4.0); HEMOGLOBIN 9.6 g/dL (12.0-18.0); LYMPH # 1.7 K/uL (1.0-4.3); LYMPH % 24.6 % (20.0-40.0); MEAN CELL VOLUME 96.1 fL (80.0-94.0); MEAN CORPUSCULAR HGB CONC 34.3 g/dL (33.0-37.0); MONO # 0.5 K/uL (0.0-0.8); MONO % 7.2 % (0.0-10.0); NEUT # 4.3 K/uL (1.8-7.0); NEUT % 63.9 % (50.0-75.0); RBC 2.91 Mil/uL (4.40-5.90); RED CELL DISTRIBUTION WIDTH 14.2 % (11.5-14.5); WHITE BLOOD COUNT 6.7 K/uL (4.8-10.8)
[2019-01-02 08:06] LABS: ALB/GLOB RATIO 1.6 (1.0-2.1); CALCIUM 8.6 mg/dl (8.6-10.4)
--- NOTE | 2019-01-02 09:07 | CP.PCM.PN ---
<Flip Pickering - Last Filed: 01/02/19 15:39> Subjective - Date & Time of Evaluation Date of Evaluation: 01/02/19 Time of Evaluation: 09:40 - Subjective Subjective: Nephro Progress Note for Dr. Bonds Service Flip Pickering DO, PGY-3 Patient seen and examined at bedside. Tolerating gardner well, but refused mineral oil enema overnight for his constipation. Requesting Milk of Magnesia as it works for him at home, but explained that due to decreased renal function, magnesium or phosphorus based preps are unsafe for him, and will not be used. Currently denies shortness of breath, cough, fevers, or chills. Still no BM as per patient. Objective - Vital Signs/Intake and Output Vital Signs (last 24 hours): Temp Pulse Resp BP Pulse Ox 98.3 F 101 H 20 107/67 96 01/02/19 07:30 01/02/19 07:30 01/02/19 07:30 01/02/19 07:30 01/02/19 07:30 Intake and Output: 01/02/19 01/02/19 06:59 18:59 Intake Total 700 Output Total 1300 Balance -600 - Medications Medications: Current Medications Albuterol/Ipratropium (Duoneb 3 Mg/0.5 Mg (3 Ml) Ud) 3 ml INH RQ6 PRN PRN Reason: Shortness of Breath Last Admin: 01/02/19 03:18 Dose: 3 ml Arformoterol Tartrate (Brovana) 15 mcg INH RQ12@1000,2200 [facility] Last Admin: 01/01/19 21:00 Dose: 15 mcg Aspirin (Ecotrin) 81 mg PO DAILY [facility] Last Admin: 01/01/19 09:54 Dose: 81 mg Budesonide (Pulmicort Respules) 0.5 mg INH RQ12 [facility] Last Admin: 01/01/19 20:59 Dose: 0.5 mg Docusate Sodium (Colace) 100 mg PO DAILY [facility] Last Admin: 01/01/19 09:54 Dose: 100 mg Famotidine (Pepcid) 20 mg IVP DAILY [facility] Last Admin: 01/01/19 09:55 Dose: 20 mg Finasteride (Proscar) 5 mg PO DAILY [facility] Last Admin: 01/01/19 09:54 Dose: 5 mg Fluticasone Propionate (Flonase) 1 spr JULIUS BID [facility] Last Admin: 01/01/19 22:37 Dose: Not Given Furosemide (Lasix) 40 mg IVP BID [facility] Last Admin: 12/30/18 19:03 Dose: 40 mg Heparin Sodium (Porcine) (Heparin) 5,000 units SC Q8 [facility] Last Admin: 01/02/19 06:20 Dose: 5,000 units Ceftriaxone Sodium 1 gm/ (Sodium Chloride) 100 mls @ 100 mls/hr IVPB DAILY [facility]; Protocol Last Admin: 01/01/19 13:04 Dose: 100 mls/hr Sodium Chloride (Sodium Chloride 0.45%) 1,000 mls @ 60 mls/hr IV .[id number] [facility] Last Admin: 01/01/19 18:24 Dose: 60 mls/hr Ipratropium [place] (Atrovent) 0.5 mg IH RQID [facility] Last Admin: 01/01/19 20:59 Dose: 0.5 mg Levothyroxine Sodium (Synthroid) 25 mcg PO DAILY@0630 [facility] Last Admin: 01/02/19 06:19 Dose: 25 mcg Methylprednisolone (Solu-Medrol) 40 mg IVP DAILY [facility] Last Admin: 01/01/19 09:55 Dose: 40 mg Metoprolol Succinate (Toprol Xl) 50 mg PO DAILY [facility] Last Admin: 01/01/19 09:54 Dose: 50 mg Pantoprazole Sodium (Protonix Ec Tab) 40 mg PO DAILY [facility] Last Admin: 01/01/19 09:54 Dose: 40 mg Phenazopyridine HCl (Pyridium) 100 mg PO PC [facility] Last Admin: 01/02/19 08:53 Dose: 100 mg Polyethylene Glycol (Miralax) 17 gm PO DAILY [facility] Last Admin: 01/01/19 09:55 Dose: 17 gm Rosuvastatin Calcium (Crestor) 10 mg PO HS [facility] Last Admin: 01/01/19 22:07 Dose: 10 mg Tamsulosin HCl (Flomax) 0.4 mg PO BID [facility] Last Admin: 01/01/19 17:41 Dose: 0.4 mg Zolpidem Tartrate (Ambien) 5 mg PO HS [facility] Last Admin: 01/01/19 23:00 Dose: 5 mg - Labs Labs: 01/02/19 07:14 01/02/19 07:14 PT 11.8 SECONDS (9.7-12.2) 12/29/18 09:15 INR 1.1 12/29/18 09:15 APTT 35.0 SECONDS (21-34) H 12/29/18 09:15 - Additional Findings Additional findings: - Constitutional Appears: Non-toxic, No Acute Distress - Head Exam Head Exam: ATRAUMATIC, NORMAL INSPECTION, NORMOCEPHALIC - Eye Exam Eye Exam: Normal appearance. absent: Conjunctival injection, Scleral icterus Pupil Exam: absent: Irregular, Unequal - ENT Exam ENT Exam: Mucous Membranes Moist - Neck Exam Neck Exam: Full ROM, Normal Inspection - Respiratory Exam Respiratory Exam: Clear to Ausculation Bilateral, NORMAL BREATHING PATTERN. absent: Accessory Muscle Use, Chest Wall Tenderness, Decreased Breath Sounds, Rales, Rhonchi, Wheezes - Cardiovascular Exam Cardiovascular Exam: REGULAR RHYTHM, RRR, +S1, +S2. absent: Bradycardia, Tachycardia, Irregular Rhythm, JVD, +S4 - GI/Abdominal Exam GI & Abdominal Exam: Soft, Normal Bowel Sounds. absent: Distended, Firm, Guarding, Rigid, Tenderness - Exam Exam: gardner in place, draining clear yellow urine - Back Exam Back Exam: absent: CVA tenderness (L), CVA tenderness (R) - Extremities Exam Extremities exam: Positive for: pedal edema (+1 pitting edema from feet to bottom 1/2 of bilateral shins), tenderness (tenderness when assessing degree of LE edema, but no calf tenderness). Negative for: calf tenderness, pedal pulses present (unable to palpate through pedal edema) - Neurological Exam awake and alert, following all commands appropriately, moving all extremities spontaneously - Psychiatric Exam Psychiatric exam: Normal Affect, Normal Mood - Skin Skin Exam: Dry, Intact, Normal Color, Warm Assessment and Plan - Assessment and Plan (Free Text) Assessment: This is an 83yo M with PMH of COPD, CAD s/p CABG, Severe requiring TAVR, and BPH with obstructive uropathy recently s/p microwave thermopathy who presented with complaint of SOB. Nephro was consulted for elevated Cr in setting of obstructive uropathy. Plan: 1) Worsening Cr 2/2 obstructive uropathy 2) COPD 3) CAD s/p CABG 4) Severe requiring TAVR 5) BPH requiring gardner - pt still refusing 6) Shortness of breath 7) Anemia 8) bilateral hydronephrosis -renal failure 2/2 obstructive uropathy; Cr 3.6 prior to microwave thermopathy, 2.2 today, baseline per prior charting is 1.4 Avoid nephrotoxic agents as feasible; BP previously well controlled, can avoid use of ACEi/ARBs at this time Continue Flomax BID and finasteride Obstruction resolved with gardner placement, but due to brisk urine output (net negative 4.7L this admit) may have KT 2/2 pre-renal state IV Lasix 40mg BID on hold Recommend 1/2 NS at 60cc/hr for gentle hydration -Pt will need likely TAVR prior to any TURP procedure Echo from last admission notable for EF 40-45%, mild LVH, moderate , mild AR, mild MR As per Cardio, pending possible cardiac cath may not have full Cr recovery due to extent and duration of obstruction and hydronephrosis Due to underlying renal insult, patient likely chronically at increased risk of DENEEN; if cath needed, pre-treat with gentle hydration to minimize risk Patient reviewed and discussed with attending, Dr. Bonds <Pal Bonds - Last Filed: 01/03/19 08:40> Objective - Vital Signs/Intake and Output Vital Signs (last 24 hours): Temp Pulse Resp BP Pulse Ox 97.6 F 70 20 101/53 L 99 01/02/19 23:30 01/03/19 04:00 01/02/19 23:30 01/02/19 23:30 01/02/19 23:30 Intake and Output: 01/03/19 01/03/19 06:59 18:59 Intake Total 1320 Output Total 1500 Balance -180 - Medications Medications: Current Medications Albuterol/Ipratropium (Duoneb 3 Mg/0.5 Mg (3 Ml) Ud) 3 ml INH RQ6 PRN PRN Reason: Shortness of Breath Last Admin: 01/02/19 03:18 Dose: 3 ml Arformoterol Tartrate (Brovana) 15 mcg INH RQ12@1000,2200 [facility] Last Admin: 01/02/19 19:24 Dose: 15 mcg Aspirin (Ecotrin) 81 mg PO DAILY [facility] Last Admin: 01/02/19 10:52 Dose: 81 mg Budesonide (Pulmicort Respules) 0.5 mg INH RQ12 [facility] Last Admin: 01/03/19 08:01 Dose: 0.5 mg Docusate Sodium (Colace) 100 mg PO DAILY [facility] Last Admin: 01/02/19 10:52 Dose: 100 mg Finasteride (Proscar) 5 mg PO DAILY [facility] Last Admin: 01/02/19 14:29 Dose: Not Given Fluticasone Propionate (Flonase) 1 spr JULIUS BID [facility] Last Admin: 01/02/19 17:14 Dose: 1 spr Furosemide (Lasix) 40 mg IVP BID [facility] Last Admin: 12/30/18 19:03 Dose: 40 mg Heparin Sodium (Porcine) (Heparin) 5,000 units SC Q8 [facility] Last Admin: 01/03/19 05:54 Dose: 5,000 units Ceftriaxone Sodium 1 gm/ (Sodium Chloride) 100 mls @ 100 mls/hr IVPB DAILY [facility]; Protocol Last Admin: 01/02/19 10:56 Dose: 100 mls/hr Sodium Chloride (Sodium Chloride 0.45%) 1,000 mls @ 60 mls/hr IV .[id number] [facility] Last Admin: 01/03/19 03:20 Dose: Not Given Ipratropium [place] (Atrovent) 0.5 mg IH RQID [facility] Last Admin: 01/03/19 08:01 Dose: 0.5 mg Levothyroxine Sodium (Synthroid) 25 mcg PO DAILY@0630 [facility] Last Admin: 01/03/19 05:54 Dose: 25 mcg Lidocaine (Lidoderm) 1 ea TD DAILY PRN PRN Reason: Pain, severe (8-10) Methylprednisolone (Solu-Medrol) 40 mg IVP DAILY [facility] Last Admin: 01/02/19 10:53 Dose: 40 mg Metoprolol Succinate (Toprol Xl) 50 mg PO DAILY [facility] Last Admin: 01/02/19 11:02 Dose: 50 mg Pantoprazole Sodium (Protonix Ec Tab) 40 mg PO DAILY [facility] Last Admin: 01/02/19 10:52 Dose: 40 mg Phenazopyridine HCl (Pyridium) 100 mg PO PC [facility] Last Admin: 01/02/19 17:13 Dose: 100 mg Polyethylene Glycol (Miralax) 17 gm PO DAILY [facility] Last Admin: 01/02/19 10:53 Dose: 17 gm Rosuvastatin Calcium (Crestor) 10 mg PO HS [facility] Last Admin: 01/02/19 21:40 Dose: 10 mg Tamsulosin HCl (Flomax) 0.4 mg PO BID [facility] Last Admin: 01/02/19 17:13 Dose: 0.4 mg Zolpidem Tartrate (Ambien) 5 mg PO HS [facility] Last Admin: 01/02/19 21:40 Dose: 5 mg - Labs Labs: 01/03/19 07:50 01/02/19 07:14 PT 11.8 SECONDS (9.7-12.2) 12/29/18 09:15 INR 1.1 12/29/18 09:15 APTT 35.0 SECONDS (21-34) H 12/29/18 09:15 Assessment and Plan (1) Acute kidney injury Status: Acute (2) Obstructive uropathy Status: Acute (3) CHF exacerbation Status: Acute Attending/Attestation - Attestation I have personally seen and examined this patient.: Yes I have fully participated in the care of the patient.: Yes I have reviewed all pertinent clinical information, including history, physical exam and plan: Yes Notes (Text): Patient seen and examined; I agree with the resident's note as above with the following additions/edits: Patient with severe , obstructive uropathy from prostate enlargement, admitted with acute decompensated systolic CHF, COPD exacerbation and acute renal failure; Renal function with slow improvement s/p gardner catheter placement; patient still in need of definitive treatment for enlarged prostate; was supposed to get cysto without anesthesia yesterday but he refused; Question about optimal time for cardiac cath; serum creatinine significantly above baseline of 1.4 (March 2018); since hydronephrosis has been present for months, it is unclear how much renal recovery he will have; since serum creatinine is still decreasing, we should wait a few days for any IV contrast study to avoid contrast nephropathy (unless it is urgent); Otherwise, low/normal BP today; urine output appears to be ~100 cc/hr; continuing 1/2NS at 60 cc/hr to avoid volume depletion; continue to hold diuretics (not clinically in CHF at this time);
[2019-01-02] MEDS: Pantoprazole 40 mg EC Tab PO SCH (10:52)
[2019-01-02] MEDS: Sodium Chloride 0.45% 1,000 ML IV SCH (10:53)
[2019-01-02] MEDS: POLYETHYLENE GLYCOL 3350 17 GM/Dose PACKET PO SCH (10:53)
[2019-01-02] MEDS: MethylPREDNISolone 40 mg Vial IVP SCH (10:53)
[2019-01-02] MEDS: Fluticasone Nasal 50 mcg/Spray NAS SCH ×2 (10:56→17:14)
[2019-01-02] MEDS: Metoprolol Succinate 50 mg XL Tab PO SCH (11:02)
[2019-01-02] MEDS: Ipratropium 0.02% Inhal Soln (0.5 mg/2.5 ml) UD IH SCH ×3 (11:46→19:24)
[2019-01-02] MEDS: Arformoterol 15 mcg/2 ml Inh Sol INH SCH ×2 (11:46→19:24)
[2019-01-02] MEDS: Budesonide 0.5 mg/2 ml Inhal Susp UD INH SCH ×2 (11:47→19:24)
--- NOTE | 2019-01-02 15:25 | CP.PCM.PN ---
Subjective - Date & Time of Evaluation Date of Evaluation: 01/02/19 Time of Evaluation: 15:23 - Subjective Subjective: sob improving cystoscopy deferred plan for cath once renal function stable Objective - Vital Signs/Intake and Output Vital Signs (last 24 hours): Temp Pulse Resp BP Pulse Ox 98.3 F 70 20 109/63 96 01/02/19 07:30 01/02/19 12:04 01/02/19 11:02 01/02/19 11:02 01/02/19 11:02 Intake and Output: 01/02/19 01/02/19 06:59 18:59 Intake Total 700 730 Output Total 1300 850 Balance -600 -120 - Medications Medications: Current Medications Albuterol/Ipratropium (Duoneb 3 Mg/0.5 Mg (3 Ml) Ud) 3 ml INH RQ6 PRN PRN Reason: Shortness of Breath Last Admin: 01/02/19 03:18 Dose: 3 ml Arformoterol Tartrate (Brovana) 15 mcg INH RQ12@1000,2200 [facility] Last Admin: 01/02/19 11:46 Dose: 15 mcg Aspirin (Ecotrin) 81 mg PO DAILY [facility] Last Admin: 01/02/19 10:52 Dose: 81 mg Budesonide (Pulmicort Respules) 0.5 mg INH RQ12 [facility] Last Admin: 01/02/19 11:47 Dose: 0.5 mg Docusate Sodium (Colace) 100 mg PO DAILY [facility] Last Admin: 01/02/19 10:52 Dose: 100 mg Finasteride (Proscar) 5 mg PO DAILY [facility] Last Admin: 01/02/19 14:29 Dose: Not Given Fluticasone Propionate (Flonase) 1 spr JULIUS BID [facility] Last Admin: 01/02/19 10:56 Dose: 1 spr Furosemide (Lasix) 40 mg IVP BID [facility] Last Admin: 12/30/18 19:03 Dose: 40 mg Heparin Sodium (Porcine) (Heparin) 5,000 units SC Q8 [facility] Last Admin: 01/02/19 14:29 Dose: 5,000 units Ceftriaxone Sodium 1 gm/ (Sodium Chloride) 100 mls @ 100 mls/hr IVPB DAILY [facility]; Protocol Last Admin: 01/02/19 10:56 Dose: 100 mls/hr Sodium Chloride (Sodium Chloride 0.45%) 1,000 mls @ 60 mls/hr IV .[id number] [facility] Last Admin: 01/02/19 10:53 Dose: Not Given Ipratropium [place] (Atrovent) 0.5 mg IH RQID [facility] Last Admin: 01/02/19 11:46 Dose: 0.5 mg Levothyroxine Sodium (Synthroid) 25 mcg PO DAILY@0630 [facility] Last Admin: 01/02/19 06:19 Dose: 25 mcg Methylprednisolone (Solu-Medrol) 40 mg IVP DAILY [facility] Last Admin: 01/02/19 10:53 Dose: 40 mg Metoprolol Succinate (Toprol Xl) 50 mg PO DAILY [facility] Last Admin: 01/02/19 11:02 Dose: 50 mg Pantoprazole Sodium (Protonix Ec Tab) 40 mg PO DAILY [facility] Last Admin: 01/02/19 10:52 Dose: 40 mg Phenazopyridine HCl (Pyridium) 100 mg PO PC [facility] Last Admin: 01/02/19 14:29 Dose: 100 mg Polyethylene Glycol (Miralax) 17 gm PO DAILY [facility] Last Admin: 01/02/19 10:53 Dose: 17 gm Rosuvastatin Calcium (Crestor) 10 mg PO HS [facility] Last Admin: 01/01/19 22:07 Dose: 10 mg Tamsulosin HCl (Flomax) 0.4 mg PO BID [facility] Last Admin: 01/02/19 10:52 Dose: 0.4 mg Zolpidem Tartrate (Ambien) 5 mg PO HS [facility] Last Admin: 01/01/19 23:00 Dose: 5 mg - Labs Labs: 01/02/19 07:14 01/02/19 07:14 PT 11.8 SECONDS (9.7-12.2) 12/29/18 09:15 INR 1.1 12/29/18 09:15 APTT 35.0 SECONDS (21-34) H 12/29/18 09:15 - Constitutional Appears: Well - Head Exam Head Exam: ATRAUMATIC, NORMAL INSPECTION, NORMOCEPHALIC - Eye Exam Eye Exam: EOMI, Normal appearance, PERRL Pupil Exam: NORMAL ACCOMODATION, PERRL - ENT Exam ENT Exam: Mucous Membranes Moist, Normal Exam - Neck Exam Neck Exam: Full ROM, Normal Inspection. absent: Lymphadenopathy - Respiratory Exam Respiratory Exam: Clear to Ausculation Bilateral, NORMAL BREATHING PATTERN - Cardiovascular Exam Cardiovascular Exam: REGULAR RHYTHM, +S1, +S2. absent: Murmur - GI/Abdominal Exam GI & Abdominal Exam: Soft, Normal Bowel Sounds. absent: Tenderness - Extremities Exam Extremities Exam: Full ROM, Normal Capillary Refill, Normal Inspection. absent: Joint Swelling, Pedal Edema - Back Exam Back Exam: NORMAL INSPECTION - Neurological Exam Neurological Exam: Alert, Awake, CN II-XII Intact, Normal Gait, Oriented x3 - Psychiatric Exam Psychiatric exam: Normal Affect, Normal Mood - Skin Skin Exam: Dry, Intact, Normal Color, Warm Assessment and Plan (1) CHF exacerbation Assessment & Plan: cont lasix for now renal function stable Status: Acute (2) Dyspnea Status: Acute (3) Renal insufficiency Status: Acute (4) Aortic stenosis Assessment & Plan: plan for CHCx once renal function stable Status: Acute
--- NOTE | 2019-01-02 16:09 | PCM.URO ---
Urology Progress Note - Objective Lab Studies: Reviewed (see previous note from 01/01 maintain gardner) Lab Results Last 24 Hours: Laboratory Results - last 24 hr 01/01/19 01/01/19 01/02/19 16:24 21:24 07:14 WBC 6.7 RBC 2.91 L Hgb 9.6 L Hct 27.9 L MCV 96.1 H MCH 33.0 H MCHC 34.3 RDW 14.2 Plt Count 239 MPV 9.0 Neut % (Auto) 63.9 Lymph % (Auto) 24.6 [place] % (Auto) 7.2 Eos % (Auto) 3.7 Baso % (Auto) 0.6 Neut # (Auto) 4.3 Lymph # (Auto) 1.7 [place] # (Auto) 0.5 Eos # (Auto) 0.2 Baso # (Auto) 0.0 Sodium Potassium Chloride Carbon Dioxide Anion Gap BUN Creatinine Est GFR ( Amer) Est GFR (Non-Af Amer) POC Glucose (mg/dL) 217 H 123 H Random Glucose Calcium Phosphorus Magnesium Total Bilirubin AST ALT Alkaline Phosphatase Total Protein Albumin Globulin Albumin/Globulin Ratio 01/02/19 07:14 WBC RBC Hgb Hct MCV MCH MCHC RDW Plt Count MPV Neut % (Auto) Lymph % (Auto) [place] % (Auto) Eos % (Auto) Baso % (Auto) Neut # (Auto) Lymph # (Auto) [place] # (Auto) Eos # (Auto) Baso # (Auto) Sodium 141 Potassium 3.8 Chloride 101 Carbon Dioxide 29 Anion Gap 15 BUN 37 H Creatinine 2.2 H Est GFR ( Amer) 35 Est GFR (Non-Af Amer) 29 POC Glucose (mg/dL) Random Glucose 101 Calcium 8.6 Phosphorus 2.7 Magnesium 1.7 Total Bilirubin 0.3 AST 34 ALT 30 Alkaline Phosphatase 55 Total Protein 6.6 Albumin 4.0 Globulin 2.5 Albumin/Globulin Ratio 1.6 Intake & Output: Intake & Output 01/01/19 01/02/19 01/02/19 18:59 06:59 18:59 Intake Total 1000 700 730 Output Total 350 1300 850 Balance 650 -600 -120 Intake: Intake, IV Amount 400 300 490 Right Antecubital 400 300 490 Oral 600 400 240 Output: Urine 350 1300 850 Urethral (Gardner) 350 1300 850 Other: Voiding Method Indwelling Catheter # Bowel Movements 0 0 Vital Signs: Vital Signs - 24 hr 01/01/19 01/01/19 01/02/19 18:13 23:45 01:00 Temperature 98 F Pulse Rate 67 77 79 Respiratory 20 Rate Blood Pressure 116/71 O2 Sat by Pulse 99 Oximetry 01/02/19 01/02/19 01/02/19 07:30 08:06 11:02 Temperature 98.3 F Pulse Rate 101 H 82 70 Respiratory 20 20 Rate Blood Pressure 107/67 109/63 O2 Sat by Pulse 96 96 Oximetry 01/02/19 01/02/19 12:04 15:59 Temperature 97.6 F Pulse Rate 70 73 Respiratory 20 Rate Blood Pressure 119/69 O2 Sat by Pulse 100 Oximetry
[2019-01-02] MEDS ORDERED: Lidocaine 5% Patch TD PRN (16:26)
--- NOTE | 2019-01-02 19:50 | CARD ---
APPROVED REPORT Date of service: 12/29/2018 EKG Measurement Heart [id number] <Conclusion> AV dual-paced rhythm Abnormal ECG
[2019-01-03] MEDS: Sodium Chloride 0.45% 1,000 ML IV SCH (03:20)
--- NOTE | 2019-01-03 03:39 | CON ---
DATE: 01/01/2019 REASON FOR CONSULTATION: For urinary retention. HISTORY OF PRESENT ILLNESS: Mr. Basilio, see previous notes. The patient is well known to me who is in retention and voiding dysfunction. He also is now admitted to the hospital with CHF and multiple medical issues, dyspnea, acute exacerbation of CHF, fluid overload, abnormal BUN and creatinine, azotemia, voiding dysfunction, and retention. I have discussed with the patient many different options. He has previously had a Walker catheter for months. He is very unhappy with this. We had discussed options. He is not a surgical candidate in anyway. Urology was consulted. Our recommendation was to insert a Walker catheter. Took some convincing of the patient as to allow us to do such. However since it has been done and it was done on 12/29/2018, he had been following over the weekend. He feels much better. He does not enjoy the Walker catheter. As to be expected but he feels that he is getting fluid off his body well, and he is considering other options. See below because we are considering a cystoscopy. PAST MEDICAL AND SURGICAL HISTORY: As listed, otherwise unremarkable from urology standpoint, but he has multiple issues heart horne, particularly in terms of ejection fraction and lungs. Everything is noted. MEDICATIONS: He had a long list on the chart. REVIEW OF SYSTEMS: Listed above and are significant. He is short of breath. He is on oxygen right now. PHYSICAL EXAMINATION: GENERAL: A well-nourished male, currently resting comfortably. ABDOMEN: Now not distended. RECTAL: Differed. Walker catheter is in place, draining. ASSESSMENT AND PLAN: As follows. Mr. Basilio is a very pleasant gentleman. I take him to do a cystoscopy just even under local just to get an assessment of what is available for the patient. He is not a great candidate for too much anesthesia, but the possibility for a suprapubic may benefit him tremendously. I discussed this at length with the patient. DIAGNOSES: Urinary retention, voiding dysfunction, and azotemia. PLAN: As follows: 1. Maintain the current Walker. 2. If he considers a suprapubic catheter, we would consider that. If that may be much more beneficial for the patient, then further plans can follow. Risks and benefits were discussed and all the different options with the patient. Risk of surgery, risk of , risk of not doing anything, risk of living with the catheter and without the catheter, all these were discussed at length. 3. He feels better with the catheter in place. We may consider a suprapubic catheter as really a very reasonably good alternative. Eulalio More MD
[2019-01-03] MEDS: Levothyroxine 25 MCG TAB PO SCH (05:54)
--- NOTE | 2019-01-03 07:44 | CP.PCM.PN ---
<Flip Pickering - Last Filed: 01/03/19 14:58> Subjective - Date & Time of Evaluation Date of Evaluation: 01/03/19 Time of Evaluation: 09:50 - Subjective Subjective: Nephro Progress Note for Dr. Bonds Service Flip Pickering DO, IM PGY-3 Patient seen and examined at bedside. Reports BM this AM. As per primary team, family requesting Urologic 2nd opinion. Denies acute complaints this AM, including chest pain, shortness of breath, hematuria, emesis. Objective - Vital Signs/Intake and Output Vital Signs (last 24 hours): Temp Pulse Resp BP Pulse Ox 97.6 F 70 20 101/53 L 99 01/02/19 23:30 01/03/19 04:00 01/02/19 23:30 01/02/19 23:30 01/02/19 23:30 Intake and Output: 01/03/19 01/03/19 06:59 18:59 Intake Total 1320 Output Total 1500 Balance -180 - Medications Medications: Current Medications Albuterol/Ipratropium (Duoneb 3 Mg/0.5 Mg (3 Ml) Ud) 3 ml INH RQ6 PRN PRN Reason: Shortness of Breath Last Admin: 01/02/19 03:18 Dose: 3 ml Arformoterol Tartrate (Brovana) 15 mcg INH RQ12@1000,2200 [facility] Last Admin: 01/02/19 19:24 Dose: 15 mcg Aspirin (Ecotrin) 81 mg PO DAILY [facility] Last Admin: 01/02/19 10:52 Dose: 81 mg Budesonide (Pulmicort Respules) 0.5 mg INH RQ12 [facility] Last Admin: 01/02/19 19:24 Dose: 0.5 mg Docusate Sodium (Colace) 100 mg PO DAILY [facility] Last Admin: 01/02/19 10:52 Dose: 100 mg Finasteride (Proscar) 5 mg PO DAILY [facility] Last Admin: 01/02/19 14:29 Dose: Not Given Fluticasone Propionate (Flonase) 1 spr JULIUS BID [facility] Last Admin: 01/02/19 17:14 Dose: 1 spr Furosemide (Lasix) 40 mg IVP BID [facility] Last Admin: 12/30/18 19:03 Dose: 40 mg Heparin Sodium (Porcine) (Heparin) 5,000 units SC Q8 [facility] Last Admin: 01/03/19 05:54 Dose: 5,000 units Ceftriaxone Sodium 1 gm/ (Sodium Chloride) 100 mls @ 100 mls/hr IVPB DAILY [facility]; Protocol Last Admin: 01/02/19 10:56 Dose: 100 mls/hr Sodium Chloride (Sodium Chloride 0.45%) 1,000 mls @ 60 mls/hr IV .[id number] [facility] Last Admin: 01/03/19 03:20 Dose: Not Given Ipratropium [place] (Atrovent) 0.5 mg IH RQID [facility] Last Admin: 01/02/19 19:24 Dose: 0.5 mg Levothyroxine Sodium (Synthroid) 25 mcg PO DAILY@0630 [facility] Last Admin: 01/03/19 05:54 Dose: 25 mcg Lidocaine (Lidoderm) 1 ea TD DAILY PRN PRN Reason: Pain, severe (8-10) Methylprednisolone (Solu-Medrol) 40 mg IVP DAILY [facility] Last Admin: 01/02/19 10:53 Dose: 40 mg Metoprolol Succinate (Toprol Xl) 50 mg PO DAILY [facility] Last Admin: 01/02/19 11:02 Dose: 50 mg Pantoprazole Sodium (Protonix Ec Tab) 40 mg PO DAILY [facility] Last Admin: 01/02/19 10:52 Dose: 40 mg Phenazopyridine HCl (Pyridium) 100 mg PO PC [facility] Last Admin: 01/02/19 17:13 Dose: 100 mg Polyethylene Glycol (Miralax) 17 gm PO DAILY [facility] Last Admin: 01/02/19 10:53 Dose: 17 gm Rosuvastatin Calcium (Crestor) 10 mg PO HS [facility] Last Admin: 01/02/19 21:40 Dose: 10 mg Tamsulosin HCl (Flomax) 0.4 mg PO BID [facility] Last Admin: 01/02/19 17:13 Dose: 0.4 mg Zolpidem Tartrate (Ambien) 5 mg PO HS [facility] Last Admin: 01/02/19 21:40 Dose: 5 mg - Labs Labs: 01/02/19 07:14 01/02/19 07:14 PT 11.8 SECONDS (9.7-12.2) 12/29/18 09:15 INR 1.1 12/29/18 09:15 APTT 35.0 SECONDS (21-34) H 12/29/18 09:15 - Additional Findings Additional findings: - Constitutional Appears: Non-toxic, No Acute Distress - Head Exam Head Exam: ATRAUMATIC, NORMAL INSPECTION, NORMOCEPHALIC - Eye Exam Eye Exam: Normal appearance. absent: Conjunctival injection, Scleral icterus Pupil Exam: absent: Irregular, Unequal - ENT Exam ENT Exam: Mucous Membranes Moist - Neck Exam Neck Exam: Full ROM, Normal Inspection - Respiratory Exam Respiratory Exam: Clear to Ausculation Bilateral, NORMAL BREATHING PATTERN. absent: Accessory Muscle Use, Chest Wall Tenderness, Decreased Breath Sounds, Rales, Rhonchi, Wheezes - Cardiovascular Exam Cardiovascular Exam: REGULAR RHYTHM, RRR, +S1, +S2. absent: Bradycardia, Tachycardia, Irregular Rhythm, JVD, +S4 - GI/Abdominal Exam GI & Abdominal Exam: Soft, Normal Bowel Sounds. absent: Distended, Firm, Guarding, Rigid, Tenderness - Exam Exam: gardner in place, draining clear yellow urine - Back Exam Back Exam: absent: CVA tenderness (L), CVA tenderness (R) - Extremities Exam Extremities exam: Positive for: pedal edema (+1 pitting edema from feet to bottom 1/2 of bilateral shins), tenderness (tenderness when assessing degree of LE edema, but no calf tenderness). Negative for: calf tenderness, pedal pulses present (unable to palpate through pedal edema) - Neurological Exam awake and alert, following all commands appropriately, moving all extremities spontaneously - Psychiatric Exam Psychiatric exam: Normal Affect, Normal Mood - Skin Skin Exam: Dry, Intact, Normal Color, Warm Assessment and Plan - Assessment and Plan (Free Text) Assessment: This is an 83yo M with PMH of COPD, CAD s/p CABG, Severe requiring TAVR, and BPH with obstructive uropathy recently s/p microwave thermopathy who presented with complaint of SOB. Nephro was consulted for elevated Cr in setting of obstructive uropathy. Plan: 1) Worsening Cr 2/2 obstructive uropathy 2) COPD 3) CAD s/p CABG 4) Severe requiring TAVR 5) BPH requiring gardner - pt still refusing 6) Shortness of breath 7) Anemia 8) bilateral hydronephrosis -renal failure 2/2 obstructive uropathy; Cr 3.6 prior to microwave thermopathy, 2.1 today, baseline per prior charting is 1.4 Avoid nephrotoxic agents as feasible; BP previously well controlled, can avoi d use of ACEi/ARBs at this time Continue Flomax BID and finasteride Obstruction resolved with gardner placement, but due to brisk urine output (approx 100cc/hr continuously) may have KT 2/2 pre-renal state IV Lasix 40mg BID on hold Recommend 1/2 NS at 60cc/hr for gentle hydration -Pt will need likely TAVR prior to any TURP procedure Echo from last admission notable for EF 40-45%, mild LVH, moderate , mild AR, mild MR As per Cardio, pending possible cardiac cath may not have full Cr recovery due to extent and duration of obstruction and hydronephrosis Due to underlying renal insult, patient likely chronically at increased risk of DENEEN; if cath needed, pre-treat with gentle hydration to minimize risk Patient reviewed and discussed with attending, Dr. Bonds <Pal Bonds - Last Filed: 01/04/19 03:05> Objective - Vital Signs/Intake and Output Vital Signs (last 24 hours): Temp Pulse Resp BP Pulse Ox 97.8 F 76 20 98/52 L 98 01/03/19 17:03 01/04/19 01:00 01/03/19 17:03 01/03/19 17:03 01/03/19 17:03 Intake and Output: 01/03/19 01/04/19 18:59 06:59 Output Total 700 750 Balance -700 -750 - Medications Medications: Current Medications Albuterol/Ipratropium (Duoneb 3 Mg/0.5 Mg (3 Ml) Ud) 3 ml INH RQ6 PRN PRN Reason: Shortness of Breath Last Admin: 01/02/19 03:18 Dose: 3 ml Arformoterol Tartrate (Brovana) 15 mcg INH RQ12@1000,2200 [facility] Last Admin: 01/03/19 21:02 Dose: 15 mcg Aspirin (Ecotrin) 81 mg PO DAILY [facility] Last Admin: 01/03/19 10:34 Dose: 81 mg Budesonide (Pulmicort Respules) 0.5 mg INH RQ12 [facility] Last Admin: 01/03/19 08:01 Dose: 0.5 mg Docusate Sodium (Colace) 100 mg PO DAILY [facility] Last Admin: 01/03/19 10:34 Dose: 100 mg Finasteride (Proscar) 5 mg PO DAILY [facility] Last Admin: 01/03/19 10:33 Dose: 5 mg Fluticasone Propionate (Flonase) 1 spr JULIUS BID [facility] Last Admin: 01/03/19 19:15 Dose: 1 spr Furosemide (Lasix) 40 mg IVP BID [facility] Last Admin: 12/30/18 19:03 Dose: 40 mg Heparin Sodium (Porcine) (Heparin) 5,000 units SC Q8 [facility] Last Admin: 01/03/19 22:53 Dose: 5,000 units Sodium Chloride (Sodium Chloride 0.45%) 1,000 mls @ 100 mls/hr IV .Q10H [facility] Ipratropium [place] (Atrovent) 0.5 mg IH RQID [facility] Last Admin: 01/03/19 19:17 Dose: 0.5 mg Levothyroxine Sodium (Synthroid) 25 mcg PO DAILY@0630 [facility] Last Admin: 01/03/19 05:54 Dose: 25 mcg Lidocaine (Lidoderm) 1 ea TD DAILY PRN PRN Reason: Pain, severe (8-10) Methylprednisolone (Solu-Medrol) 40 mg IVP DAILY [facility] Last Admin: 01/03/19 10:33 Dose: 40 mg Metoprolol Succinate (Toprol Xl) 50 mg PO DAILY [facility] Last Admin: 01/03/19 10:33 Dose: 50 mg Pantoprazole Sodium (Protonix Ec Tab) 40 mg PO DAILY [facility] Last Admin: 01/03/19 10:34 Dose: 40 mg Phenazopyridine HCl (Pyridium) 100 mg PO PC [facility] Last Admin: 01/03/19 19:15 Dose: 100 mg Polyethylene Glycol (Miralax) 17 gm PO DAILY [facility] Last Admin: 01/03/19 10:33 Dose: 17 gm Rosuvastatin Calcium (Crestor) 10 mg PO HS [facility] Last Admin: 01/03/19 22:52 Dose: 10 mg Tamsulosin HCl (Flomax) 0.4 mg PO BID [facility] Last Admin: 01/03/19 19:15 Dose: 0.4 mg Zolpidem Tartrate (Ambien) 5 mg PO HS [facility] Last Admin: 01/03/19 22:52 Dose: 5 mg - Labs Labs: 01/03/19 07:50 01/03/19 07:50 PT 11.8 SECONDS (9.7-12.2) 04/26/19 09:15 INR 1.1 12/29/18 09:15 APTT 35.0 SECONDS (21-34) H 12/29/18 09:15 Assessment and Plan (1) Acute kidney injury Status: Acute (2) Obstructive uropathy Status: Acute (3) CHF exacerbation Status: Acute Attending/Attestation - Attestation I have personally seen and examined this patient.: Yes I have fully participated in the care of the patient.: Yes I have reviewed all pertinent clinical information, including history, physical exam and plan: Yes Notes (Text): Patient seen and examined; I agree with the resident's note as above with the following additions/edits: Patient with htn, severe needing TAVF, prostate enlargement, admitted with acute on chronic renal failure and acute decompensated systolic CHF; Renal function continues to improve very slowly after having gardner placed 5 days ago; the question remains as to what is his new baseline serum creatinine after having had marked hyronephrosis since several months; Otherwise, clinically does not appear to be in overt CHF although CXR does show some vascular congestion; will hold diuretics for now; should continue B-adrian s; will hold ONESIMO blockade also; Patient apparently wanting second opinion regarding his prostate issues; we have explained to him multiple times that TAVR is needed before any definitive procedure can be undertaken for his prostate; Furthermore, patient is in need of cardiac cath prior to TAVR, however, should hold off on any IV dye study until renal function reaches its new baseline; Anemia of CKD/chronic disease; iron sat mildly low; will give IV iron as well as epogen; -continue flomax 0.4 mg bid and finasteride 5 mg daily;
[2019-01-03 08:00] LABS: BASO % 0.6 % (0.0-2.0); EOS # 0.2 K/uL (0.0-0.7); EOS % 3.5 % (0.0-4.0); HEMOGLOBIN 9.1 g/dL (12.0-18.0); LYMPH # 1.6 K/uL (1.0-4.3); LYMPH % 26.6 % (20.0-40.0); MEAN CELL VOLUME 96.2 fL (80.0-94.0); MEAN CORPUSCULAR HEMOGLOBIN 33.1 pg (27.0-31.0); MEAN CORPUSCULAR HGB CONC 34.4 g/dL (33.0-37.0); MEAN PLATELET VOLUME 8.7 fL (7.2-11.7); MONO # 0.4 K/uL (0.0-0.8); MONO % 6.6 % (0.0-10.0); NEUT # 3.8 K/uL (1.8-7.0); NEUT % 62.7 % (50.0-75.0); NRBC % 0.1 % (0.0-2.0); RBC 2.76 Mil/uL (4.40-5.90); RED CELL DISTRIBUTION WIDTH 14.6 % (11.5-14.5); WHITE BLOOD COUNT 6.1 K/uL (4.8-10.8)
[2019-01-03] MEDS: Budesonide 0.5 mg/2 ml Inhal Susp UD INH SCH (08:01)
[2019-01-03] MEDS: Ipratropium 0.02% Inhal Soln (0.5 mg/2.5 ml) UD IH SCH ×4 (08:01→19:17)
[2019-01-03 08:51] LABS: ALB/GLOB RATIO 1.5 (1.0-2.1); ALBUMIN 3.8 g/dL (3.5-5.0); CALCIUM 8.5 mg/dl (8.6-10.4)
--- NOTE | 2019-01-03 09:25 | CP.PCM.PN ---
<Ebenezer Ortega M - Last Filed: 01/03/19 14:22> Subjective - Date & Time of Evaluation Date of Evaluation: 01/03/19 Time of Evaluation: 09:15 - Subjective Subjective: Medicine progress note for hospitalist Dr. An. Pt seen and examined at bedside. Patient states he had some minor SOB overnight that prevented him from sleeping thoroughly overnight. Denies headaches chest pain, cough, trouble urinating, abdominal pain, diarrhea, constipation, fevers, chills. Objective - Vital Signs/Intake and Output Vital Signs (last 24 hours): Temp Pulse Resp BP Pulse Ox 98.0 F 72 20 103/79 98 01/03/19 09:05 01/03/19 09:05 01/03/19 09:05 01/03/19 09:05 01/03/19 09:05 Intake and Output: 01/03/19 01/03/19 06:59 18:59 Intake Total 1320 Output Total 1500 Balance -180 - Medications Medications: Current Medications Albuterol/Ipratropium (Duoneb 3 Mg/0.5 Mg (3 Ml) Ud) 3 ml INH RQ6 PRN PRN Reason: Shortness of Breath Last Admin: 01/02/19 03:18 Dose: 3 ml Arformoterol Tartrate (Brovana) 15 mcg INH RQ12@1000,2200 [facility] Last Admin: 01/02/19 19:24 Dose: 15 mcg Aspirin (Ecotrin) 81 mg PO DAILY [facility] Last Admin: 01/02/19 10:52 Dose: 81 mg Budesonide (Pulmicort Respules) 0.5 mg INH RQ12 [facility] Last Admin: 01/03/19 08:01 Dose: 0.5 mg Docusate Sodium (Colace) 100 mg PO DAILY [facility] Last Admin: 01/02/19 10:52 Dose: 100 mg Finasteride (Proscar) 5 mg PO DAILY [facility] Last Admin: 01/02/19 14:29 Dose: Not Given Fluticasone Propionate (Flonase) 1 spr JULIUS BID [facility] Last Admin: 01/02/19 17:14 Dose: 1 spr Furosemide (Lasix) 40 mg IVP BID [facility] Last Admin: 12/30/18 19:03 Dose: 40 mg Heparin Sodium (Porcine) (Heparin) 5,000 units SC Q8 [facility] Last Admin: 01/03/19 05:54 Dose: 5,000 units Ceftriaxone Sodium 1 gm/ (Sodium Chloride) 100 mls @ 100 mls/hr IVPB DAILY [facility]; Protocol Last Admin: 01/02/19 10:56 Dose: 100 mls/hr Sodium Chloride (Sodium Chloride 0.45%) 1,000 mls @ 60 mls/hr IV .[id number] [facility] Last Admin: 01/03/19 03:20 Dose: Not Given Ipratropium [place] (Atrovent) 0.5 mg IH RQID [facility] Last Admin: 01/03/19 08:01 Dose: 0.5 mg Levothyroxine Sodium (Synthroid) 25 mcg PO DAILY@0630 [facility] Last Admin: 01/03/19 05:54 Dose: 25 mcg Lidocaine (Lidoderm) 1 ea TD DAILY PRN PRN Reason: Pain, severe (8-10) Methylprednisolone (Solu-Medrol) 40 mg IVP DAILY [facility] Last Admin: 01/02/19 10:53 Dose: 40 mg Metoprolol Succinate (Toprol Xl) 50 mg PO DAILY [facility] Last Admin: 01/02/19 11:02 Dose: 50 mg Pantoprazole Sodium (Protonix Ec Tab) 40 mg PO DAILY [facility] Last Admin: 01/02/19 10:52 Dose: 40 mg Phenazopyridine HCl (Pyridium) 100 mg PO PC [facility] Last Admin: 01/02/19 17:13 Dose: 100 mg Polyethylene Glycol (Miralax) 17 gm PO DAILY [facility] Last Admin: 01/02/19 10:53 Dose: 17 gm Rosuvastatin Calcium (Crestor) 10 mg PO HS [facility] Last Admin: 01/02/19 21:40 Dose: 10 mg Tamsulosin HCl (Flomax) 0.4 mg PO BID [facility] Last Admin: 01/02/19 17:13 Dose: 0.4 mg Zolpidem Tartrate (Ambien) 5 mg PO HS [facility] Last Admin: 01/02/19 21:40 Dose: 5 mg - Labs Labs: 01/03/19 07:50 01/03/19 07:50 PT 11.8 SECONDS (9.7-12.2) 12/29/18 09:15 INR 1.1 12/29/18 09:15 APTT 35.0 SECONDS (21-34) H 12/29/18 09:15 - Constitutional Appears: Non-toxic, No Acute Distress - Head Exam Head Exam: NORMAL INSPECTION - Eye Exam Eye Exam: EOMI, Normal appearance - ENT Exam ENT Exam: Mucous Membranes Moist - Respiratory Exam Respiratory Exam: Decreased Breath Sounds, Rales Additional comments: R > L - Cardiovascular Exam Cardiovascular Exam: +S1, +S2, Murmur Additional comments: aortic stenosis - GI/Abdominal Exam GI & Abdominal Exam: Soft, Normal Bowel Sounds - Extremities Exam Extremities Exam: Full ROM Additional comments: trace to 1+ pitting edema - Back Exam Back Exam: absent: CVA tenderness (L), CVA tenderness (R) - Neurological Exam Neurological Exam: Alert, Awake, Oriented x3 - Psychiatric Exam Psychiatric exam: Normal Affect, Normal Mood - Skin Skin Exam: Dry, Intact, Normal Color, Warm Assessment and Plan - Assessment and Plan (Free Text) Assessment: 83 M w/ PMhx of obstructive uropathy w/ hydronephrosos, presented with CHF exacerbation along with obstructive uropathy. S/p gardner on 12/29, lasix held bradford ght due to negative fluid balance, on gentle hydration for concern from pre- renal failure, cardiac cath once jordan improves/resolves; will obtain cxry for concern of fluid overload. Plan: Acute on chronic systolic heart failure - ECHO 12/13/18 - EF of 40-45%; systolic fxn moderately impaired, moderate aortic stenosis - BNP on admission [id number] (previously 3000s) - CXRAY: severe pulmonary venous congestion - Lasix 40 IV held due to negative balance - strict I/O's - daily weights - fluid restrict - c/w home medication metoprolol xl 50 mg daily - per cardio, consider cardiac cath once AK improves - f/u sera BPH with partial obstructive uropathy - Gardner inplace - renal ultrasound: moderate hydronephrosis, distended bladder, prostate volume 75 ml - Urine culture negative - F/u urology, Dr. Chapito de la cruz - pt offered suprapubic catheter - will discuss w/ pt regarding 2nd opinion - c/w home medication flomax 0.4 mg PO BID, finasteride 5mg PO daily Acute on chronic renal failure - Cr 2.2, GFR 20s, previously similar numbers - renal ultrasound: moderate hydronephrosis, distended bladder, prostate volume 75 ml - f/u nephro, Dr. Mughni recs - NS @ 60 cc/hr due to possible pre-renal cause - avoid nephrotoxic drugs History of COPD - c/w home medications spiriva - start solu-medrol 40 mg IVP daily - duonebs Q6H PRN - will consider decreasing solumedrol pendign cxry History of Coronary Artery Disease History of Aortic Stenosis - c/w aspirin 81 mg daily, metoprolol succinate 50 mg Po doug - rosuvastain reduced to 10 daily due to GFR - F/u cardio, Dr. Lee de la cruz - plan for cath when JORDAN improves History of hypothyrodism - c/w levothyroxine 25 mcg daily Constipation - Bowel movmeent on 01/03 - c/w home medication colace 100 mg daily and miralax - will consider giving lactulose post procedure UTI - 14 wbc, leuko esterase 2+ - U/C negative - continue ceftriaxone 1gm daily ppx for possible urological procedure PPx - DVT: heparin 5000 units daily - GI: HHD, pepcid 20 mg daily Dispo: Monitor renal function with attempt of cardiac cath provided JORDAN improve. C/w gardner in place as patient/ family is requesting 2nd urology opinion for further management. F/u cxray. <Jose Luis An - Last Filed: 01/03/19 16:15> Objective - Vital Signs/Intake and Output Vital Signs (last 24 hours): Temp Pulse Resp BP Pulse Ox 98.0 F 72 20 103/79 98 01/03/19 09:05 01/03/19 09:05 01/03/19 09:05 01/03/19 09:05 01/03/19 09:05 Intake and Output: 01/03/19 01/03/19 06:59 18:59 Intake Total 1320 Output Total 1500 700 Balance -180 -700 - Medications Medications: Current Medications Albuterol/Ipratropium (Duoneb 3 Mg/0.5 Mg (3 Ml) Ud) 3 ml INH RQ6 PRN PRN Reason: Shortness of Breath Last Admin: 01/02/19 03:18 Dose: 3 ml Arformoterol Tartrate (Brovana) 15 mcg INH RQ12@1000,2200 [facility] Last Admin: 01/03/19 11:06 Dose: 15 mcg Aspirin (Ecotrin) 81 mg PO DAILY [facility] Last Admin: 01/03/19 10:34 Dose: 81 mg Budesonide (Pulmicort Respules) 0.5 mg INH RQ12 [facility] Last Admin: 01/03/19 08:01 Dose: 0.5 mg Docusate Sodium (Colace) 100 mg PO DAILY [facility] Last Admin: 01/03/19 10:34 Dose: 100 mg Finasteride (Proscar) 5 mg PO DAILY [facility] Last Admin: 01/03/19 10:33 Dose: 5 mg Fluticasone Propionate (Flonase) 1 spr JULIUS BID [facility] Last Admin: 01/03/19 10:34 Dose: 1 spr Furosemide (Lasix) 40 mg IVP BID [facility] Last Admin: 12/30/18 19:03 Dose: 40 mg Heparin Sodium (Porcine) (Heparin) 5,000 units SC Q8 [facility] Last Admin: 01/03/19 14:10 Dose: 5,000 units Sodium Chloride (Sodium Chloride 0.45%) 1,000 mls @ 60 mls/hr IV .[id number] [facility] Last Admin: 01/03/19 03:20 Dose: Not Given Ipratropium [place] (Atrovent) 0.5 mg IH RQID [facility] Last Admin: 01/03/19 11:06 Dose: 0.5 mg Levothyroxine Sodium (Synthroid) 25 mcg PO DAILY@0630 [facility] Last Admin: 01/03/19 05:54 Dose: 25 mcg Lidocaine (Lidoderm) 1 ea TD DAILY PRN PRN Reason: Pain, severe (8-10) Methylprednisolone (Solu-Medrol) 40 mg IVP DAILY [facility] Last Admin: 01/03/19 10:33 Dose: 40 mg Metoprolol Succinate (Toprol Xl) 50 mg PO DAILY [facility] Last Admin: 01/03/19 10:33 Dose: 50 mg Pantoprazole Sodium (Protonix Ec Tab) 40 mg PO DAILY [facility] Last Admin: 01/03/19 10:34 Dose: 40 mg Phenazopyridine HCl (Pyridium) 100 mg PO PC [facility] Last Admin: 01/03/19 14:11 Dose: 100 mg Polyethylene Glycol (Miralax) 17 gm PO DAILY [facility] Last Admin: 01/03/19 10:33 Dose: 17 gm Rosuvastatin Calcium (Crestor) 10 mg PO HS [facility] Last Admin: 01/02/19 21:40 Dose: 10 mg Tamsulosin HCl (Flomax) 0.4 mg PO BID [facility] Last Admin: 01/03/19 10:34 Dose: 0.4 mg Zolpidem Tartrate (Ambien) 5 mg PO HS [facility] Last Admin: 01/02/19 21:40 Dose: 5 mg - Labs Labs: 01/03/19 07:50 01/03/19 07:50 PT 11.8 SECONDS (9.7-12.2) 12/29/18 09:15 INR 1.1 12/29/18 09:15 APTT 35.0 SECONDS (21-34) H 12/29/18 09:15 Attending/Attestation - Attestation I have personally seen and examined this patient.: Yes I have fully participated in the care of the patient.: Yes I have reviewed all pertinent clinical information, including history, physical exam and plan: Yes Notes (Text): 01/03/19 16:12 Medical attending: Patient was seen and examined by me. Agree with the above note by the resident The patient was not in any acute distress today. He still has the gardner at this time. The creatine decreased to 2.1 today, hopefully if it decreases further we cardiology will consider doing a cardiac catherization He was complaining of some cough today and so we had a portable CXRAY done to assess for fluid overload and it was reported as improving pulmonary edema. If he develops acute shortness of breath then may need to stop the IVF, however for now continue to monitor. Jose Luis An
[2019-01-03] MEDS: MethylPREDNISolone 40 mg Vial IVP SCH (10:33)
[2019-01-03] MEDS: Metoprolol Succinate 50 mg XL Tab PO SCH (10:33)
[2019-01-03] MEDS: POLYETHYLENE GLYCOL 3350 17 GM/Dose PACKET PO SCH (10:33)
[2019-01-03] MEDS: Fluticasone Nasal 50 mcg/Spray NAS SCH ×2 (10:34→19:15)
[2019-01-03] MEDS: Pantoprazole 40 mg EC Tab PO SCH (10:34)
[2019-01-03] MEDS: Arformoterol 15 mcg/2 ml Inh Sol INH SCH ×2 (11:06→21:02)
--- NOTE | 2019-01-03 14:31 | CP.PCM.PN ---
Subjective - Date & Time of Evaluation Date of Evaluation: 01/03/19 Time of Evaluation: 14:30 - Subjective Subjective: SOB back to normal Cr 2.2 BNP trending down Objective - Vital Signs/Intake and Output Vital Signs (last 24 hours): Temp Pulse Resp BP Pulse Ox 98.0 F 72 20 103/79 98 01/03/19 09:05 01/03/19 09:05 01/03/19 09:05 01/03/19 09:05 01/03/19 09:05 Intake and Output: 01/03/19 01/03/19 06:59 18:59 Intake Total 1320 Output Total 1500 700 Balance -180 -700 - Medications Medications: Current Medications Albuterol/Ipratropium (Duoneb 3 Mg/0.5 Mg (3 Ml) Ud) 3 ml INH RQ6 PRN PRN Reason: Shortness of Breath Last Admin: 01/02/19 03:18 Dose: 3 ml Arformoterol Tartrate (Brovana) 15 mcg INH RQ12@1000,2200 [facility] Last Admin: 01/03/19 11:06 Dose: 15 mcg Aspirin (Ecotrin) 81 mg PO DAILY [facility] Last Admin: 01/03/19 10:34 Dose: 81 mg Budesonide (Pulmicort Respules) 0.5 mg INH RQ12 [facility] Last Admin: 01/03/19 08:01 Dose: 0.5 mg Docusate Sodium (Colace) 100 mg PO DAILY [facility] Last Admin: 01/03/19 10:34 Dose: 100 mg Finasteride (Proscar) 5 mg PO DAILY [facility] Last Admin: 01/03/19 10:33 Dose: 5 mg Fluticasone Propionate (Flonase) 1 spr JULIUS BID [facility] Last Admin: 01/03/19 10:34 Dose: 1 spr Furosemide (Lasix) 40 mg IVP BID [facility] Last Admin: 12/30/18 19:03 Dose: 40 mg Heparin Sodium (Porcine) (Heparin) 5,000 units SC Q8 [facility] Last Admin: 01/03/19 14:10 Dose: 5,000 units Ceftriaxone Sodium 1 gm/ (Sodium Chloride) 100 mls @ 100 mls/hr IVPB DAILY [facility]; Protocol Last Admin: 01/03/19 10:32 Dose: 100 mls/hr Sodium Chloride (Sodium Chloride 0.45%) 1,000 mls @ 60 mls/hr IV .[id number] [facility] Last Admin: 01/03/19 03:20 Dose: Not Given Ipratropium [place] (Atrovent) 0.5 mg IH RQID [facility] Last Admin: 01/03/19 11:06 Dose: 0.5 mg Levothyroxine Sodium (Synthroid) 25 mcg PO DAILY@0630 [facility] Last Admin: 01/03/19 05:54 Dose: 25 mcg Lidocaine (Lidoderm) 1 ea TD DAILY PRN PRN Reason: Pain, severe (8-10) Methylprednisolone (Solu-Medrol) 40 mg IVP DAILY [facility] Last Admin: 01/03/19 10:33 Dose: 40 mg Metoprolol Succinate (Toprol Xl) 50 mg PO DAILY [facility] Last Admin: 01/03/19 10:33 Dose: 50 mg Pantoprazole Sodium (Protonix Ec Tab) 40 mg PO DAILY [facility] Last Admin: 01/03/19 10:34 Dose: 40 mg Phenazopyridine HCl (Pyridium) 100 mg PO PC [facility] Last Admin: 01/03/19 14:11 Dose: 100 mg Polyethylene Glycol (Miralax) 17 gm PO DAILY [facility] Last Admin: 01/03/19 10:33 Dose: 17 gm Rosuvastatin Calcium (Crestor) 10 mg PO HS [facility] Last Admin: 01/02/19 21:40 Dose: 10 mg Tamsulosin HCl (Flomax) 0.4 mg PO BID [facility] Last Admin: 01/03/19 10:34 Dose: 0.4 mg Zolpidem Tartrate (Ambien) 5 mg PO HS [facility] Last Admin: 01/02/19 21:40 Dose: 5 mg - Labs Labs: 01/03/19 07:50 01/03/19 07:50 PT 11.8 SECONDS (9.7-12.2) 12/29/18 09:15 INR 1.1 12/29/18 09:15 APTT 35.0 SECONDS (21-34) H 12/29/18 09:15 - Constitutional Appears: Well - Head Exam Head Exam: ATRAUMATIC, NORMAL INSPECTION, NORMOCEPHALIC - Eye Exam Eye Exam: EOMI, Normal appearance, PERRL Pupil Exam: NORMAL ACCOMODATION, PERRL - ENT Exam ENT Exam: Mucous Membranes Moist, Normal Exam - Neck Exam Neck Exam: Full ROM, Normal Inspection. absent: Lymphadenopathy - Respiratory Exam Respiratory Exam: Clear to Ausculation Bilateral, NORMAL BREATHING PATTERN - Cardiovascular Exam Cardiovascular Exam: REGULAR RHYTHM, +S1, +S2, Murmur - GI/Abdominal Exam GI & Abdominal Exam: Soft, Normal Bowel Sounds. absent: Tenderness - Extremities Exam Extremities Exam: Full ROM, Normal Capillary Refill, Normal Inspection. absent: Joint Swelling, Pedal Edema - Back Exam Back Exam: NORMAL INSPECTION - Neurological Exam Neurological Exam: Alert, Awake, CN II-XII Intact, Normal Gait, Oriented x3 - Psychiatric Exam Psychiatric exam: Normal Affect, Normal Mood - Skin Skin Exam: Dry, Intact, Normal Color, Warm Assessment and Plan (1) CHF exacerbation Assessment & Plan: CHCx once renally cleared cont current meds Status: Acute (2) Dyspnea Status: Acute (3) Renal insufficiency Status: Acute (4) Aortic stenosis Status: Acute
--- NOTE | 2019-01-03 15:56 | RAD ---
Date of service: 01/03/2019 HISTORY: Shortness of breath. COMPARISON: 12/29/2018. FINDINGS: LUNGS: Improving pulmonary edema. PLEURA: No significant pleural effusion identified, no pneumothorax apparent. CARDIOVASCULAR: No atherosclerotic calcification present Stable cardiomegaly. Position/ configuration of pacemaker device: Satisfactory. OSSEOUS STRUCTURES: No significant abnormalities. VISUALIZED UPPER ABDOMEN: Normal. OTHER FINDINGS: None. IMPRESSION: Improving pulmonary edema.
[2019-01-04] MEDS: Sodium Chloride 0.45% 1,000 ML IV SCH ×2 (03:59→05:07)
[2019-01-04] MEDS: Levothyroxine 25 MCG TAB PO SCH (05:56)
--- NOTE | 2019-01-04 06:49 | CP.PCM.PN ---
Subjective - Date & Time of Evaluation Date of Evaluation: 01/04/19 Time of Evaluation: 09:50 - Subjective Subjective: Nephro Progress Note for Dr. Cammie Pickering DO PGY-3 Patient seen and examined at bedside. Reports feeling better overall. Denies acute complaints this AM, including chest pain, shortness of breath, hematuria, emesis. Later, on re-evaluation with attending, patient expressed intent to leave AMA. Instructed to follow-up with his primary gear roller as soon as possible given severe and need for valve replacement. Also instructed not to remove the gardner without obtaining permission from a urologist first. Patient stated agreement this these instructions. Objective - Vital Signs/Intake and Output Vital Signs (last 24 hours): Temp Pulse Resp BP Pulse Ox 98.0 F 71 20 117/70 99 01/04/19 00:00 01/04/19 04:35 01/04/19 00:00 01/04/19 00:00 01/04/19 00:00 Intake and Output: 01/03/19 01/04/19 18:59 06:59 Output Total 700 1750 Balance -700 -1750 - Medications Medications: Current Medications Albuterol/Ipratropium (Duoneb 3 Mg/0.5 Mg (3 Ml) Ud) 3 ml INH RQ6 PRN PRN Reason: Shortness of Breath Last Admin: 01/02/19 03:18 Dose: 3 ml Arformoterol Tartrate (Brovana) 15 mcg INH RQ12@1000,2200 [facility] Last Admin: 01/03/19 21:02 Dose: 15 mcg Aspirin (Ecotrin) 81 mg PO DAILY [facility] Last Admin: 01/03/19 10:34 Dose: 81 mg Budesonide (Pulmicort Respules) 0.5 mg INH RQ12 [facility] Last Admin: 01/03/19 08:01 Dose: 0.5 mg Docusate Sodium (Colace) 100 mg PO DAILY [facility] Last Admin: 01/03/19 10:34 Dose: 100 mg Epoetin Jim (Procrit) 10,000 unit SC ONCE ONE Stop: 01/04/19 09:01 Finasteride (Proscar) 5 mg PO DAILY [facility] Last Admin: 01/03/19 10:33 Dose: 5 mg Fluticasone Propionate (Flonase) 1 spr JULIUS BID [facility] Last Admin: 01/03/19 19:15 Dose: 1 spr Furosemide (Lasix) 40 mg IVP BID [facility] Last Admin: 12/30/18 19:03 Dose: 40 mg Heparin Sodium (Porcine) (Heparin) 5,000 units SC Q8 [facility] Last Admin: 01/04/19 05:56 Dose: 5,000 units Sodium Chloride (Sodium Chloride 0.45%) 1,000 mls @ 100 mls/hr IV .Q10H [facility] Last Admin: 01/04/19 05:07 Dose: 100 mls/hr Ipratropium [place] (Atrovent) 0.5 mg IH RQID [facility] Last Admin: 01/03/19 19:17 Dose: 0.5 mg Levothyroxine Sodium (Synthroid) 25 mcg PO DAILY@0630 [facility] Last Admin: 01/04/19 05:56 Dose: 25 mcg Lidocaine (Lidoderm) 1 ea TD DAILY PRN PRN Reason: Pain, severe (8-10) Methylprednisolone (Solu-Medrol) 40 mg IVP DAILY [facility] Last Admin: 01/03/19 10:33 Dose: 40 mg Metoprolol Succinate (Toprol Xl) 50 mg PO DAILY [facility] Last Admin: 01/03/19 10:33 Dose: 50 mg Pantoprazole Sodium (Protonix Ec Tab) 40 mg PO DAILY [facility] Last Admin: 01/03/19 10:34 Dose: 40 mg Phenazopyridine HCl (Pyridium) 100 mg PO PC [facility] Last Admin: 01/03/19 19:15 Dose: 100 mg Polyethylene Glycol (Miralax) 17 gm PO DAILY [facility] Last Admin: 01/03/19 10:33 Dose: 17 gm Rosuvastatin Calcium (Crestor) 10 mg PO HS [facility] Last Admin: 01/03/19 22:52 Dose: 10 mg Tamsulosin HCl (Flomax) 0.4 mg PO BID [facility] Last Admin: 01/03/19 19:15 Dose: 0.4 mg Zolpidem Tartrate (Ambien) 5 mg PO HS [facility] Last Admin: 01/03/19 22:52 Dose: 5 mg - Labs Labs: 01/03/19 07:50 01/03/19 07:50 PT 11.8 SECONDS (9.7-12.2) 12/29/18 09:15 INR 1.1 12/29/18 09:15 APTT 35.0 SECONDS (21-34) H 12/29/18 09:15 - Additional Findings Additional findings: - Constitutional Appears: Non-toxic, No Acute Distress - Head Exam Head Exam: ATRAUMATIC, NORMAL INSPECTION, NORMOCEPHALIC - Eye Exam Eye Exam: Normal appearance, EOMI. absent: Conjunctival injection, Scleral icterus Pupil Exam: absent: Irregular, Unequal - ENT Exam ENT Exam: Mucous Membranes Moist, Wearing Nasal Canula - Neck Exam Neck Exam: Full ROM, Normal Inspection - Respiratory Exam Respiratory Exam: Clear to Ausculation Bilateral, NORMAL BREATHING PATTERN. absent: Accessory Muscle Use, Chest Wall Tenderness, Decreased Breath Sounds, Rales, Rhonchi, Wheezes - Cardiovascular Exam Cardiovascular Exam: RRR, +S1, +S2. absent: Bradycardia, Tachycardia, Irregular Rhythm, JVD, +S4 - GI/Abdominal Exam GI & Abdominal Exam: Soft, Normal Bowel Sounds. absent: Distended, Firm, Guarding, Rigid, Tenderness - Exam Exam: gardner in place, draining clear yellow urine - Extremities Exam Extremities exam: Positive for: pedal edema (+1 pitting edema from feet to bottom 1/2 of bilateral shins), tenderness (tenderness when assessing degree of LE edema, but no calf tenderness). Negative for: calf tenderness, pedal pulses present (unable to palpate through pedal edema) - Neurological Exam awake and alert, following all commands appropriately, moving all extremities spontaneously - Psychiatric Exam Psychiatric exam: Normal Affect, Normal Mood - Skin Skin Exam: Dry, Intact, Normal Color, Warm Assessment and Plan - Assessment and Plan (Free Text) Assessment: This is an 83yo M with PMH of COPD, CAD s/p CABG, Severe requiring TAVR, and BPH with obstructive uropathy recently s/p microwave thermopathy who presented with complaint of SOB. Nephro was consulted for elevated Cr in setting of obstructive uropathy. Plan: 1) Worsening Cr 2/2 obstructive uropathy 2) COPD 3) CAD s/p CABG 4) Severe requiring TAVR 5) BPH requiring gardner - pt still refusing 6) Shortness of breath 7) Anemia 8) bilateral hydronephrosis -renal failure 2/2 obstructive uropathy; Cr 3.6 prior to microwave thermopathy, improved from 2.1 to 1.6 today, baseline per prior charting is 1.4 Avoid nephrotoxic agents as feasible; BP previously well controlled, can avoid use of ACEi/ARBs at this time Continue Flomax BID and finasteride Obstruction resolved with gardner placement, but due to brisk urine output (approx 100cc/hr continuously) may have KT 2/2 pre-renal state Continue holding diuretics, continue NS 100cc/hr -Pt will need likely TAVR prior to any TURP procedure Echo from last admission notable for EF 40-45%, mild LVH, moderate , mild AR, mild MR As per Cardio, pending possible cardiac cath May not have full Cr recovery due to extent and duration of ob struction/hydronephrosis Due to underlying renal insult, patient likely chronically at increased r isk of DENEEN; if cath necessary, pre-treat with gentle hydration to optimize Patient reviewed and discussed with attending, Dr. Bonds
--- NOTE | 2019-01-04 07:24 | CP.PCM.PN ---
Subjective - Date & Time of Evaluation Date of Evaluation: 01/04/19 Time of Evaluation: 07:24 - Subjective Subjective: PGY-1 Medicine Progress Note for Dr. An Objective - Vital Signs/Intake and Output Vital Signs (last 24 hours): Temp Pulse Resp BP Pulse Ox 98.0 F 71 20 117/70 99 01/04/19 00:00 01/04/19 04:35 01/04/19 00:00 01/04/19 00:00 01/04/19 00:00 Intake and Output: 01/04/19 01/04/19 06:59 18:59 Output Total 1750 Balance -1750 - Medications Medications: Current Medications Albuterol/Ipratropium (Duoneb 3 Mg/0.5 Mg (3 Ml) Ud) 3 ml INH RQ6 PRN PRN Reason: Shortness of Breath Last Admin: 01/02/19 03:18 Dose: 3 ml Arformoterol Tartrate (Brovana) 15 mcg INH RQ12@1000,2200 [facility] Last Admin: 01/03/19 21:02 Dose: 15 mcg Aspirin (Ecotrin) 81 mg PO DAILY [facility] Last Admin: 01/03/19 10:34 Dose: 81 mg Budesonide (Pulmicort Respules) 0.5 mg INH RQ12 [facility] Last Admin: 01/03/19 08:01 Dose: 0.5 mg Docusate Sodium (Colace) 100 mg PO DAILY [facility] Last Admin: 01/03/19 10:34 Dose: 100 mg Epoetin Jim (Procrit) 10,000 unit SC ONCE ONE Stop: 01/04/19 09:01 Finasteride (Proscar) 5 mg PO DAILY [facility] Last Admin: 01/03/19 10:33 Dose: 5 mg Fluticasone Propionate (Flonase) 1 spr JULIUS BID [facility] Last Admin: 01/03/19 19:15 Dose: 1 spr Furosemide (Lasix) 40 mg IVP BID [facility] Last Admin: 12/30/18 19:03 Dose: 40 mg Heparin Sodium (Porcine) (Heparin) 5,000 units SC Q8 [facility] Last Admin: 01/04/19 05:56 Dose: 5,000 units Sodium Chloride (Sodium Chloride 0.45%) 1,000 mls @ 100 mls/hr IV .Q10H [facility] Last Admin: 01/04/19 05:07 Dose: 100 mls/hr Ipratropium [place] (Atrovent) 0.5 mg IH RQID [facility] Last Admin: 01/03/19 19:17 Dose: 0.5 mg Levothyroxine Sodium (Synthroid) 25 mcg PO DAILY@0630 [facility] Last Admin: 01/04/19 05:56 Dose: 25 mcg Lidocaine (Lidoderm) 1 ea TD DAILY PRN PRN Reason: Pain, severe (8-10) Methylprednisolone (Solu-Medrol) 40 mg IVP DAILY [facility] Last Admin: 01/03/19 10:33 Dose: 40 mg Metoprolol Succinate (Toprol Xl) 50 mg PO DAILY [facility] Last Admin: 01/03/19 10:33 Dose: 50 mg Pantoprazole Sodium (Protonix Ec Tab) 40 mg PO DAILY [facility] Last Admin: 01/03/19 10:34 Dose: 40 mg Phenazopyridine HCl (Pyridium) 100 mg PO PC [facility] Last Admin: 01/03/19 19:15 Dose: 100 mg Polyethylene Glycol (Miralax) 17 gm PO DAILY [facility] Last Admin: 01/03/19 10:33 Dose: 17 gm Rosuvastatin Calcium (Crestor) 10 mg PO HS [facility] Last Admin: 01/03/19 22:52 Dose: 10 mg Tamsulosin HCl (Flomax) 0.4 mg PO BID [facility] Last Admin: 01/03/19 19:15 Dose: 0.4 mg Zolpidem Tartrate (Ambien) 5 mg PO HS [facility] Last Admin: 01/03/19 22:52 Dose: 5 mg - Labs Labs: 01/03/19 07:50 01/03/19 07:50 PT 11.8 SECONDS (9.7-12.2) 12/29/18 09:15 INR 1.1 12/29/18 09:15 APTT 35.0 SECONDS (21-34) H 12/29/18 09:15 - Constitutional Appears: Non-toxic, No Acute Distress - Head Exam Head Exam: ATRAUMATIC, NORMAL INSPECTION, NORMOCEPHALIC - Eye Exam Eye Exam: EOMI, Normal appearance, PERRL Pupil Exam: NORMAL ACCOMODATION - ENT Exam ENT Exam: Mucous Membranes Moist, Normal Exam - Neck Exam Neck Exam: Full ROM, Normal Inspection - Respiratory Exam Respiratory Exam: Decreased Breath Sounds, Rales - Cardiovascular Exam Cardiovascular Exam: REGULAR RHYTHM, +S1, +S2 - GI/Abdominal Exam GI & Abdominal Exam: Soft, Normal Bowel Sounds. absent: Distended, Firm, Guarding, Rigid, Tenderness, Rebound - Exam Additional comments: gardner cath in place - Extremities Exam Extremities Exam: Normal Capillary Refill, Pedal Edema. absent: Calf Tenderness - Back Exam Back Exam: NORMAL INSPECTION - Neurological Exam Neurological Exam: Alert, Awake, Oriented x3 - Skin Skin Exam: Dry, Intact, Normal Color, Warm Assessment and Plan - Assessment and Plan (Free Text) Assessment: 83 year old male with PMHx of obstructive uropathy w/ hydronephrosis presenting with CHF exacerbation along with obstructive uropathy, s/p gardner insertion on 12/29. Lasix currently on hold d/t negative fluid balance, on gentle hydration for concern from pre-renal failure. Plans for cardiac cath once KT improves/resolves. Plan: HFrEF, acute on chronic -BNP on admission [id number] (previously 3000s) -CXR on admission: severe pulmonary venous congestion -ECHO (12/13): EF of 40-45%; systolic fxn moderately impaired, moderate aortic s tenosis -lasix 40 mg IVP currently held d/t negative balance -metoprolol 50 mg PO daily -Cardiac recs (Dr. Howard) appreciated -plans for cath once KT improves BPH with partial obstructive uropathy -gardner cath in place (12/29) -renal u/s: moderate hydronephrosis, distended bladder, prostate volume 75 ml -urine cultures: no growth -Urology recs (Dr. More) appreciated -pt requesting 2nd Urology opinion; will discuss with patient re: options -flomax 0.4 mg PO BID -finasteride 5mg PO daily Acute on chronic renal failure -Cr 2.2, GFR 20s, previously similar numbers -renal u/s findings as above -Nephro recs (Dr. Bonds) appreciated -NS @ 100 cc/hr due to possible pre-renal cause -avoid nephrotoxic drugs UTI, resolved -UA: 14 wbc, leuko esterase 2+ -Urine culture: no growth -currently afebrile, no leukocytosis -rocephin d/c'd Hx of COPD -duonebs 3q6 prn -solumedrol 40 mg IVP daily -home spiriva equivalent Hx of Coronary Artery Disease Hx of Aortic Stenosis -ASA 81 mg PO daily -metoprolol succinate 50 mg PO daily -rosuvastatin 10 mg PO HS (reduced d/t GFR) -Cardiac recs (Dr Howard) appreciated: see A&P above Hx of hypothyroidism -synthroid 25 mcg PO daily PPx, Diet, Disposition -DVT ppx: heparin 5000 units daily -GI ppx: pepcid 20 mg daily -Diet: HHD -Dispo: Monitor renal function with attempt of cardiac cath provided KT improve. C/w gardner in place as patient/ family is requesting 2nd urology opinion for further mgmt Case discussed with Dr. Nataliya Milner DO, PGY-1
[2019-01-04 07:43] LABS: BASO % 0.6 % (0.0-2.0); EOS # 0.2 K/uL (0.0-0.7); EOS % 2.7 % (0.0-4.0); HEMOGLOBIN 9.5 g/dL (12.0-18.0); LYMPH # 1.8 K/uL (1.0-4.3); LYMPH % 24.4 % (20.0-40.0); MEAN CORPUSCULAR HEMOGLOBIN 33.4 pg (27.0-31.0); MEAN CORPUSCULAR HGB CONC 34.8 g/dL (33.0-37.0); MEAN PLATELET VOLUME 8.9 fL (7.2-11.7); MONO # 0.5 K/uL (0.0-0.8); MONO % 6.9 % (0.0-10.0); NEUT # 4.8 K/uL (1.8-7.0); NEUT % 65.4 % (50.0-75.0); RBC 2.85 Mil/uL (4.40-5.90); RED CELL DISTRIBUTION WIDTH 14.7 % (11.5-14.5); WHITE BLOOD COUNT 7.4 K/uL (4.8-10.8)
[2019-01-04] MEDS: Ipratropium 0.02% Inhal Soln (0.5 mg/2.5 ml) UD IH SCH (08:00)
[2019-01-04] MEDS: Budesonide 0.5 mg/2 ml Inhal Susp UD INH SCH (08:00)
[2019-01-04 08:14] LABS: ALB/GLOB RATIO 1.5 (1.0-2.1); ALBUMIN 3.9 g/dL (3.5-5.0); CALCIUM 8.7 mg/dl (8.6-10.4)
[2019-01-04 08:21] VITALS: TEMP 98.1; O2SAT 95
[2019-01-04] MEDS ORDERED: Epoetin Alfa 10,000 unit/ml Dialysis SC ONE ×2 (09:00→09:15)
[2019-01-04] MEDS: Fluticasone Nasal 50 mcg/Spray NAS SCH (10:11)
[2019-01-04] MEDS: Pantoprazole 40 mg EC Tab PO SCH (10:12)
[2019-01-04] MEDS: MethylPREDNISolone 40 mg Vial IVP SCH (10:12)
[2019-01-04] MEDS: POLYETHYLENE GLYCOL 3350 17 GM/Dose PACKET PO SCH (10:12)
[2019-01-04 10:13] VITALS: BP 129/77; PULSE 76
[2019-01-04] MEDS: Metoprolol Succinate 50 mg XL Tab PO SCH (10:13)
[2019-01-04] MEDS: Arformoterol 15 mcg/2 ml Inh Sol INH SCH (10:48)
--- NOTE | 2019-01-04 13:38 | CP.PCM.DIS ---
<Ric Milner - Last Filed: 01/04/19 13:36> Provider - Provider Date of Admission: 12/31/18 09:40 Attending physician: Jose Luis An DO Consults: 12/29/18 12:24 Cardiology Consult Routine Comment: Consulting Provider: Bonifacio Howard Consulting Physician: Bonifacio Howard Reason for Consult: chf exacerbation 12/29/18 12:30 Urology Consult Routine Comment: Consulting Provider: Evangelist More Consulting Physician: Evangelist More Reason for Consult: urinary retention, hx of BPH 12/29/18 12:32 Nephrology Consult Routine Comment: Consulting Provider: Pal Bonds Consulting Physician: Pal Bonds Reason for Consult: acute on chronic renal failure, GFR 20s Time Spent in preparation of Discharge (in minutes): 40 Diagnosis - Discharge Diagnosis (1) Aortic stenosis Status: Acute (2) Heart failure with reduced ejection fraction Status: Acute (3) Obstructive uropathy Status: Acute (4) Renal insufficiency Status: Acute Hospital Course - Lab Results Lab Results: Micro Results 12/29/18 15:08 Urine,Clean Catch Urine Culture - Final No Growth (<1,000 CFU/ML) Most Recent Lab Values WBC 7.4 K/uL (4.8-10.8) 01/04/19 07:19 RBC 2.85 Mil/uL (4.40-5.90) L 01/04/19 07:19 Hgb 9.5 g/dL (12.0-18.0) L 01/04/19 07:19 Hct 27.3 % (35.0-51.0) L 01/04/19 07:19 MCV 96.0 fL (80.0-94.0) H 01/04/19 07:19 MCH 33.4 pg (27.0-31.0) H 01/04/19 07:19 MCHC 34.8 g/dL (33.0-37.0) 01/04/19 07:19 RDW 14.7 % (11.5-14.5) H 01/04/19 07:19 Plt Count 236 K/uL (130-400) 01/04/19 07:19 MPV 8.9 fL (7.2-11.7) 01/04/19 07:19 Neut % (Auto) 65.4 % (50.0-75.0) 01/04/19 07:19 Lymph % (Auto) 24.4 % (20.0-40.0) 01/04/19 07:19 [place] % (Auto) 6.9 % (0.0-10.0) 01/04/19 07:19 Eos % (Auto) 2.7 % (0.0-4.0) 01/04/19 07:19 Baso % (Auto) 0.6 % (0.0-2.0) 01/04/19 07:19 Neut # (Auto) 4.8 K/uL (1.8-7.0) 01/04/19 07: Lymph # (Auto) 1.8 K/uL (1.0-4.3) 01/04/19 07:19 [place] # (Auto) 0.5 K/uL (0.0-0.8) 01/04/19 07: Eos # (Auto) 0.2 K/uL (0.0-0.7) 01/04/19 07: Baso # (Auto) 0.0 K/uL (0.0-0.2) 01/04/19 07:19 Neutrophils % (Manual) 91 % (50-75) H 12/30/18 15:14 Band Neutrophils % 1 % (0-2) 12/30/18 15:14 Lymphocytes % (Manual) 6 % (20-40) L 12/30/18 15:14 Monocytes % (Manual) 2 % (0-10) 12/30/18 15:14 Platelet Estimate Normal (NORMAL) 12/30/18 15:14 Anisocytosis (manual) Slight 12/30/18 15:14 PT 11.8 SECONDS (9.7-12.2) 12/29/18 09:15 INR 1.1 12/29/18 09:15 APTT 35.0 SECONDS (21-34) H 12/29/18 09:15 Sodium 138 mmol/L (132-148) 01/04/19 07:19 Potassium 3.8 mmol/L (3.6-5.2) 01/04/19 07:19 Chloride 104 mmol/L (98-107) 01/04/19 07:19 Carbon Dioxide 25 mmol/L (22-30) 01/04/19 07:19 Anion Gap 13 (10-20) 01/04/19 07:19 BUN 36 mg/dL (9-20) H 01/04/19 07:19 Creatinine 1.6 mg/dL (0.8-1.5) H 01/04/19 07:19 Est GFR ( Amer) 50 01/04/19 07:19 Est GFR (Non-Af Amer) 42 01/04/19 07:19 POC Glucose (mg/dL) 123 mg/dL (65-110) H 01/01/19 21:24 Random Glucose 100 mg/dL (75-110) 01/04/19 07:19 Calcium 8.7 mg/dl (8.6-10.4) 01/04/19 07:19 Phosphorus 2.9 mg/dL (2.5-4.5) 01/04/19 07:19 Magnesium 1.5 mg/dL (1.6-2.3) L 01/04/19 07:19 Iron 57 ug/dL (49-181) 12/31/18 11:31 TIBC 251 ug/dL (250-450) 12/31/18 11:31 % Saturation 23 (20-55) 12/31/18 11:31 Ferritin 253.0 ng/mL 12/31/18 11:31 Total Bilirubin 0.3 mg/dL (0.2-1.3) 01/04/19 07:19 AST 27 U/L (17-59) 01/04/19 07:19 ALT 33 U/L (21-72) 01/04/19 07:19 Alkaline Phosphatase 52 U/L (38-126) 01/04/19 07:19 Total Creatine Kinase 166 U/L (55-170) 12/29/18 09:15 CK-MB (Mass) 1.89 ng/mL (0.0-3.38) 12/29/18 09:15 Troponin I < 0.0120 ng/mL (0.00-0.120) 12/29/18 09:15 NT-Pro-B Natriuret Pep 3630 pg/mL (0-900) H 01/01/19 07:44 Total Protein 6.6 g/dL (6.3-8.3) 01/04/19 07:19 Albumin 3.9 g/dL (3.5-5.0) 01/04/19 07:19 Globulin 2.7 gm/dL (2.2-3.9) 01/04/19 07:19 Albumin/Globulin Ratio 1.5 (1.0-2.1) 01/04/19 07:19 Urine Color Yellow (YELLOW) 12/29/18 09:45 Urine Clarity Clear (Clear) 12/29/18 09:45 Urine pH 6.0 (5.0-8.0) 12/29/18 09:45 Ur Specific [place] 1.012 (1.003-1.030) 12/29/18 09:45 Urine Protein Negative mg/dL (NEGATIVE) 12/29/18 09:45 Urine Glucose (UA) Normal mg/dL (Normal) 12/29/18 09:45 Urine Ketones Negative mg/dL (NEGATIVE) 12/29/18 09:45 Urine Blood Negative (NEGATIVE) 12/29/18 09:45 Urine Nitrate Negative (NEGATIVE) 12/29/18 09:45 Urine Bilirubin Negative (NEGATIVE) 12/29/18 09:45 Urine Urobilinogen Normal mg/dL (0.2-1.0) 12/29/18 09:45 Ur Leukocyte Esterase 2+ Elizabeth/uL (Negative) H 12/29/18 09:45 Urine WBC (Auto) 14 /hpf (0-5) H 12/29/18 09:45 Urine RBC (Auto) 1 /hpf (0-3) 12/29/18 09:45 Ur Squamous Epith Cells < 1 /hpf (0-5) 12/29/18 09:45 - Hospital Course Hospital Course: HPI: Patient is an 83 year old male with a past medical history of obstructive uropathy (patient refusing gardner on previous admission), COPD, CHF w/ reduced EF 45%, CABG, pacemaker, CKD, placement presents to ED for SOB. Pt states after discharge approximately 2 weeks prior he started developing progressive SOB associated with productive (white phlegm) cough. Patient reports being complaint with medications; however, having progressiveness of symptoms. Patient also reports bilateral lower extremity swelling at that time. Furthermore, patient reports having no bowel movement for the past 2 days; however, still producing urine. On previous admission, patient had obstructive uropathy and worsening renal function; however, patient persistently refused gardner insertion for further workup. The following is a summary of hospital course. For full detail, please refer to EMR: HFrEF, acute on chronic -BNP on admission: 10,000s (previously 3000s) -CXR on admission: severe pulmonary venous congestion -ECHO (12/13): EF of 40-45%; systolic fxn moderately impaired, moderate aortic stenosis -Lasix 40 mg IVP BID held due to negative fluid balance -metoprolol 50 mg PO daily -Cardiac recs (Dr. Howard) appreciated -plans for cardiac cath once KT improves BPH with partial obstructive uropathy -renal u/s (12/29): moderate hydronephrosis, distended bladder, prostate volume 75 ml -Gardner catheter reinserted (12/29) -Urine cultures: no growth -Urology recs (Dr. More) appreciated -pt was offered suprapubic catheter, refused -Patient wishes to see different Urologist -referrals given for alternative physicians, if he so chooses -c/w home flomax 0.4 mg PO BID, finasteride 5mg PO daily Acute on chronic renal failure -Cr 1.6 (01/04), continuing to improve -GFR 42 (01/04) -renal u/s findings as mentioned above -Nephrology recs (Dr. Bonds) appreciated - NS @ 100 cc/hr due to possible pre-renal cause - avoid nephrotoxic drugs History of COPD -c/w home medications spiriva -solu-medrol 40 mg IVP daily -duonebs Q6H PRN History of Coronary Artery Disease History of Aortic Stenosis - c/w aspirin 81 mg daily, metoprolol succinate 50 mg Po doug -rosuvastain 10 mg PO HS -Cardiac recs (Dr. Howard) appreciated: see A&P above History of hypothyroidism -c/w levothyroxine 25 mcg daily UTI, improved -UA:14 wbc, leuko esterase 2+ -Urine culture: no growth -afebrile, no leukocytosis -rocephin d/c'd PPx, Diet, Disposition -DVT ppx: heparin 5000 units daily -GI ppx: pepcid 20 mg daily -Diet: HHD On 01/04, patient declined to remain in hospital any longer for treatment or to proceed with possible cardiac intervention, and expressed wishes to go home. This action is against medical advice. This decision was made with informed refusal, with transplant surgeon present as well as with daughter, , and medical attending in presence. The patient was told that remaining in the hospital is necessary. Explanation of the reasons why were discussed. The risks of leaving were explained to the patient and include, but are not limited to, worsening of known or currently unknown conditions, permanent disability, and from undiagnosed or untreated conditions. The patient has the capacity to make this informed decision and understands my explanation of the current medical problems and risks of leaving. The patient voluntary accepts these risks and signed an AMA form documenting our conversation. The patient was given the opportunity to ask questions and reconsider. The patient was encouraged to return to the ED at any time for further care. The patient will be leaving with gardner catheter in place. He was instructed to follow up with his Urologist for further monitoring, maintenance, and care. - Date & Time of H&P Date of H&P: 01/04/19 Time of H&P: 13:36 Discharge Exam - Head Exam Head Exam: ATRAUMATIC, NORMAL INSPECTION, NORMOCEPHALIC - Eye Exam Eye Exam: EOMI, Normal appearance, PERRL Pupil Exam: NORMAL ACCOMODATION - ENT Exam ENT Exam: Mucous Membranes Moist, Normal Exam - Respiratory Exam Respiratory Exam: Decreased Breath Sounds, Rales - Cardiovascular Exam Cardiovascular Exam: +S1, +S2, Systolic Murmur - GI/Abdominal Exam GI & Abdominal Exam: Normal Bowel Sounds, Soft, Unremarkable. absent: Distended, Firm, Guarding, Rebound, Rigid, Tenderness - Exam Additional comments: gardner cath in place, draining adequate urine - Extremities Exam Extremities exam: normal capillary refill, pedal edema, pedal pulses present - Back Exam Back exam: NORMAL INSPECTION. absent: CVA tenderness (L), CVA tenderness (R) - Neurological Exam Neurological exam: Alert, Normal Gait, Oriented x3 - Psychiatric Exam Psychiatric exam: Normal Affect, Normal Mood - Skin Skin Exam: Dry, Intact, Normal Color, Warm Discharge Plan - Follow Up Plan Condition: STABLE Disposition: AGAINST MEDICAL ADVICE Additional Instructions: On 01/04, patient declined to remain in hospital any longer for treatment or to proceed with possible cardiac intervention, and expressed wishes to go home. This action is against medical advice. This decision was made with informed refusal, with transplant surgeon present as well as with daughter, , and medical attending in presence. The patient was told that remaining in the hospital is necessary. Explanation of the reasons why were discussed. The risks of leaving were explained to the patient and include, but are not limited to, worsening of known or currently unknown conditions, permanent disability, and from undiagnosed or untreated conditions. The patient has the capacity to make this informed decision and understands my explanation of the current medical problems and risks of leaving. The patient voluntary accepts these risks and signed an AMA form documenting our conversation. The patient was given the opportunity to ask questions and reconsider. The patient was encouraged to return to the ED at any time for further care. The patient will be leaving with gardner catheter in place. He was instructed to follow up with his Urologist for further monitoring, maintenance, and care. Referrals: Zeferino Ocampo Jr., MD [Staff Provider] - Arjun Burr MD [Staff Provider] - <Jose Luis An - Last Filed: 01/04/19 14:57> Provider - Provider Date of Admission: 12/31/18 09:40 Attending physician: Jose Luis An DO Consults: 12/29/18 12:24 Cardiology Consult Routine Comment: Consulting Provider: Bonifacio Howard Consulting Physician: Bonifacio Howard Reason for Consult: chf exacerbation 12/29/18 12:30 Urology Consult Routine Comment: Consulting Provider: Evangelist More Consulting Physician: Evangelist More Reason for Consult: urinary retention, hx of BPH 12/29/18 12:32 Nephrology Consult Routine Comment: Consulting Provider: Pal Bonds Consulting Physician: Pal Bonds Reason for Consult: acute on chronic renal failure, GFR 20s Hospital Course - Lab Results Lab Results: Micro Results 12/29/18 15:08 Urine,Clean Catch Urine Culture - Final No Growth (<1,000 CFU/ML) Most Recent Lab Values WBC 7.4 K/uL (4.8-10.8) 01/04/19 07:19 RBC 2.85 Mil/uL (4.40-5.90) L 01/04/19 07:19 Hgb 9.5 g/dL (12.0-18.0) L 01/04/19 07:19 Hct 27.3 % (35.0-51.0) L 01/04/19 07:19 MCV 96.0 fL (80.0-94.0) H 01/04/19 07:19 MCH 33.4 pg (27.0-31.0) H 01/04/19 07:19 MCHC 34.8 g/dL (33.0-37.0) 01/04/19 07:19 RDW 14.7 % (11.5-14.5) H 01/04/19 07:19 Plt Count 236 K/uL (130-400) 01/04/19 07:19 MPV 8.9 fL (7.2-11.7) 01/04/19 07:19 Neut % (Auto) 65.4 % (50.0-75.0) 01/04/19 07: Lymph % (Auto) 24.4 % (20.0-40.0) 01/04/19 07:19 [place] % (Auto) 6.9 % (0.0-10.0) 01/04/19 07:19 Eos % (Auto) 2.7 % (0.0-4.0) 01/04/19 07:19 Baso % (Auto) 0.6 % (0.0-2.0) 01/04/19 07: Neut # (Auto) 4.8 K/uL (1.8-7.0) 01/04/19 07:19 Lymph # (Auto) 1.8 K/uL (1.0-4.3) 01/04/19 07:19 [place] # (Auto) 0.5 K/uL (0.0-0.8) 01/04/19 07:19 Eos # (Auto) 0.2 K/uL (0.0-0.7) 01/04/19 07:19 Baso # (Auto) 0.0 K/uL (0.0-0.2) 01/04/19 07:19 Neutrophils % (Manual) 91 % (50-75) H 12/30/18 15:14 Band Neutrophils % 1 % (0-2) 12/30/18 15:14 Lymphocytes % (Manual) 6 % (20-40) L 12/30/18 15:14 Monocytes % (Manual) 2 % (0-10) 12/30/18 15:14 Platelet Estimate Normal (NORMAL) 12/30/18 15:14 Anisocytosis (manual) Slight 12/30/18 15:14 PT 11.8 SECONDS (9.7-12.2) 12/29/18 09:15 INR 1.1 12/29/18 09:15 APTT 35.0 SECONDS (21-34) H 12/29/18 09:15 Sodium 138 mmol/L (132-148) 01/04/19 07:19 Potassium 3.8 mmol/L (3.6-5.2) 01/04/19 07:19 Chloride 104 mmol/L (98-107) 01/04/19 07:19 Carbon Dioxide 25 mmol/L (22-30) 01/04/19 07:19 Anion Gap 13 (10-20) 01/04/19 07:19 BUN 36 mg/dL (9-20) H 01/04/19 07:19 Creatinine 1.6 mg/dL (0.8-1.5) H 01/04/19 07:19 Est GFR ( Amer) 50 01/04/19 07:19 Est GFR (Non-Af Amer) 42 01/04/19 07:19 POC Glucose (mg/dL) 123 mg/dL (65-110) H 01/01/19 21:24 Random Glucose 100 mg/dL (75-110) 01/04/19 07:19 Calcium 8.7 mg/dl (8.6-10.4) 01/04/19 07:19 Phosphorus 2.9 mg/dL (2.5-4.5) 01/04/19 07:19 Magnesium 1.5 mg/dL (1.6-2.3) L 01/04/19 07:19 Iron 57 ug/dL (49-181) 12/31/18 11:31 TIBC 251 ug/dL (250-450) 12/31/18 11:31 % Saturation 23 (20-55) 12/31/18 11:31 Ferritin 253.0 ng/mL 12/31/18 11:31 Total Bilirubin 0.3 mg/dL (0.2-1.3) 01/04/19 07:19 AST 27 U/L (17-59) 01/04/19 07:19 ALT 33 U/L (21-72) 01/04/19 07:19 Alkaline Phosphatase 52 U/L (38-126) 01/04/19 07:19 Total Creatine Kinase 166 U/L (55-170) 12/29/18 09:15 CK-MB (Mass) 1.89 ng/mL (0.0-3.38) 12/29/18 09:15 Troponin I < 0.0120 ng/mL (0.00-0.120) 12/29/18 09:15 NT-Pro-B Natriuret Pep 3630 pg/mL (0-900) H 01/01/19 07:44 Total Protein 6.6 g/dL (6.3-8.3) 01/04/19 07:19 Albumin 3.9 g/dL (3.5-5.0) 01/04/19 07:19 Globulin 2.7 gm/dL (2.2-3.9) 01/04/19 07:19 Albumin/Globulin Ratio 1.5 (1.0-2.1) 01/04/19 07:19 Urine Color Yellow (YELLOW) 12/29/18 09:45 Urine Clarity Clear (Clear) 12/29/18 09:45 Urine pH 6.0 (5.0-8.0) 12/29/18 09:45 Ur Specific [place] 1.012 (1.003-1.030) 12/29/18 09:45 Urine Protein Negative mg/dL (NEGATIVE) 12/29/18 09:45 Urine Glucose (UA) Normal mg/dL (Normal) 12/29/18 09:45 Urine Ketones Negative mg/dL (NEGATIVE) 12/29/18 09:45 Urine Blood Negative (NEGATIVE) 12/29/18 09:45 Urine Nitrate Negative (NEGATIVE) 12/29/18 09:45 Urine Bilirubin Negative (NEGATIVE) 12/29/18 09:45 Urine Urobilinogen Normal mg/dL (0.2-1.0) 12/29/18 09:45 Ur Leukocyte Esterase 2+ [place]/uL (Negative) H 12/29/18 09:45 Urine WBC (Auto) 14 /hpf (0-5) H 12/29/18 09:45 Urine RBC (Auto) 1 /hpf (0-3) 12/29/18 09:45 Ur Squamous Epith Cells < 1 /hpf (0-5) 12/29/18 09:45 Attending/Attestation - Attestation I have personally seen and examined this patient.: Yes I have fully participated in the care of the patient.: Yes I have reviewed all pertinent clinical information, including history, physical exam and plan: Yes Notes (Text): 01/04/19 14:52 Medical attending: Patient was seen and examined by me. Agree with the above note by the resident The patient was with his daughter and his at bedside. He told us that he no longer wanted to stay. We had a very long discussion and used a transplant surgeon to help him understand. But ultimately he signed himself out AMA with the family present We explained that the creatine had decreased to 1.6 now and that this was very good, but he did not want to even talk about cardiac cath to see if he is a candidate for a TAVRs. He reported tommorow was his birthday and he had no more interest comming to the hospital I explained to the daughter that the patient was doing himself a diservice by leaving. We explained that if he tries to take out the gardner that he is at risk of further kidney damage as well as CHF fluid retention But he perisisted and signed himself out AMA. Jose Luis An
== END 2019-01-04 12:08 | disposition left against medical advice (07) | DRG 291 ==
LOC: C.ER 08:54 → C.9E 11:03 → C.6T 12:06 → OBSVTOIN 12-31 09:40 → C.6T 01-01 16:16
PROVIDERS: ADMIT Hospitalist; ATTEND Hospitalist
DX: I13.0 Hypertensive heart and chronic kidney disease with heart failure and stage 1 through stage 4 chronic kidney disease, or unspecified chronic kidney disease (principal); I50.23 Acute on chronic systolic (congestive) heart failure; N13.8 Other obstructive and reflux uropathy; N17.9 Acute kidney failure, unspecified; N39.0 Urinary tract infection, site not specified; N13.30 Unspecified hydronephrosis; N40.1 Benign prostatic hyperplasia with lower urinary tract symptoms; J44.9 Chronic obstructive pulmonary disease, unspecified; I25.10 Atherosclerotic heart disease of native coronary artery without angina pectoris; E03.9 Hypothyroidism, unspecified; I35.0 Nonrheumatic aortic (valve) stenosis; D64.9 Anemia, unspecified; K59.00 Constipation, unspecified; Z95.0 Presence of cardiac pacemaker; Z95.1 Presence of aortocoronary bypass graft; Z87.891 Personal history of nicotine dependence; Z95.2 Presence of prosthetic heart valve